=== PATIENT | male | born 1935 | race Caucasian/White ===

== ENCOUNTER 2019-07-22 05:11 | Day surgery (SDC) | payer MEDICARE, SELFPAY ==
[2019-07-21 16:04] VITALS: BMI 29.7
[2019-07-22] VITALS (8 sets, daily range): BP systolic 132–161; BP diastolic 66–87; PULSE 38–52; RESP 14–16; TEMP 36.5–36.9; O2SAT 94–98
[2019-07-22 09:39] LABS: Basophils Absolute Auto 0.1 K/mm3 (0.0-0.1); Basophils Percent Auto 1.3 % (0.2-1.2); Eosinophils Absolute Auto 0.3 K/mm3 (0-0.3); Eosinophils Percent Auto 5.6 % (0-4.4); Hematocrit 38.8 % (42.0-52.0); Hemoglobin 12.9 g/dL (14.0-18.0); Immature Granulocyte Absolute 0.01 K/mm3 (0.00-0.031); Immature Granulocyte Percent A 0.2 % (0-0.5); Lymphocytes Absolute Auto 1.79 K/mm3 (0.9-3.2); Lymphocytes Percent Auto 40.2 % (18.3-44.2); Mean Corpuscular HGB Conc 33.2 g/dl (32-36); Mean Corpuscular Hemoglobin 33.2 pg (26-34); Mean Platelet Volume 10.2 fl (7.4-10.4); Monocytes Absolute Auto 0.5 K/mm3 (0.1-0.6); Monocytes Percent Auto 10.1 % (2.6-8.5); Neutrophils Absolute Auto 1.9 K/mm3 (1.3-6.7); Neutrophils Percent Auto 42.6 % (45.5-73.1); Platelet Count Result 159 k/mm3 (150-375); Red Blood Count 3.88 M/mm3 (4.6-6.20); Red Cell Distribution Width 13.3 % (11.5-14.5); White Blood Count 4.5 K/mm3 (4.5-10.0)
[2019-07-22 09:55] LABS: Blood Urea Nitrogen 27 mg/dL (9-20); Calcium 9.3 mg/dL (8.4-10.2); Carbon Dioxide 23 mmol/L (22-30); Chloride 111 mmol/L (98-107); Estimated CRCL calculation 58 ml/min; Estimated Glomerular Filt Rate > 60; Glucose 103 mg/dL (75-110); Sodium 140 mmol/L (137-145)
[2019-07-22 10:21] LABS: Potassium 4.2 mmol/L (3.4-5.0)
--- NOTE | 2019-07-22 10:30 | WPDMODSED ---
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 Recent acceleration in chronic anginal symptoms Present Complaint: Exertional chest pain Procedure to be performed/Plan: Left heart catheterization Allergies Allergy/AdvReac Type Severity Reaction Status Date / Time clopidogrel Allergy Unknown Verified 08/10/18 11:27 CLOPIDOGREL BISULFATE Allergy Intermediate RED RASH Uncoded 10/17/16 09:35 Home Medications Medication Instructions Recorded Confirmed Type rosuvastatin 20 mg tablet 10 mg PO DAILY #45 tablet 05/20/19 07/22/19 Rx aspirin 81 mg PO DAILY 07/21/19 07/22/19 History glucosamine HCl 1,500 mg PO BID 07/21/19 07/22/19 History multivitamin 1 tablet PO DAILY 07/21/19 07/22/19 History valsartan-hydrochlorothiazide 1 tablet PO DAILY 07/21/19 07/22/19 History [Diovan HCT] Current Medications: Active Medications Sodium Chloride (Normal Saline Iv) 500 mls @ 100 mls/hr IV CONT .Q5H [facility] Sedation/Anesthesia: No previous sedation/anesthesia problems (including family history). [facility] Family History Family History (Updated 08/10/18 @ 11:32 by DOCTOR UNKNOWN) Father Family history of cardiovascular disease, Onset Age: 79 Family history of malignant neoplasm, Onset Age: 79 Family history of heart disease in male family member before age 55 Other Family history of arthritis Hypertension Social History Social History Smoking status: Former smoker Smoking end date: 05/18/76 Alcohol intake: current Gender identity (if verbalized by the patient): Male Mod Sed Physical Exam Physical Exam Pre Procedural Exam: Normal: Appearance, Neck, Throat, Airway, Lungs, Heart Size, Heart Rate, Heart Rhythm, Neuro Exam and Extremities Hours since solid foods: 12 Hours since liquid intake: 12 Internal Medicine - PN: Obj Da Vital Signs Vital Signs: Vital Signs - 24 hr 07/22/19 09:29 Temperature 36.9 C Pulse Rate 52 L Respiratory Rate 14 Blood Pressure 161/80 H Pulse Oximetry 98 Meds/Results Medications: Active Medications Generic Name Dose Route Start Last Admin Trade Name Freq PRN Reason Stop Dose Admin Sodium Chloride 500 mls @ 100 mls/hr 07/22/19 06:30 Normal Saline Iv IV CONT .Q5H [facility] Labs CBC & Chem 7: 07/22/19 09:12 07/22/19 09:12 Labs: Laboratory Results - last 24 hr 07/22/19 07/22/19 09:12 09:12 WBC 4.5 RBC 3.88 L Hgb 12.9 L Hct 38.8 L MCV 100.0 MCH 33.2 MCHC 33.2 RDW 13.3 Plt Count 159 MPV 10.2 Immature Gran % (Auto) 0.2 Neut % (Auto) 42.6 L Lymph % (Auto) 40.2 Ralls % (Auto) 10.1 H Eos % (Auto) 5.6 H Baso % (Auto) 1.3 H Lymph # (Auto) 1.79 Ralls # (Auto) 0.5 Eos # (Auto) 0.3 Baso # (Auto) 0.1 Abs Immat Gran (auto) 0.01 Absolute Neuts (auto) 1.9 Absolute Nucleated RBC 0.0 Nucleated RBC % 0.0 Sodium 140 Potassium 4.2 Chloride 111 H Carbon Dioxide 23 BUN 27 H Creatinine 1.00 Estim Creat Clear Calc 58 Estimated GFR > 60 Glucose 103 Calcium 9.3 ASA Classification/Sedation ASA Classification/Sedation ASA Class: II Emergent: No Risks: Risks, benefits and alternatives explained and patient/family accepted plan for sedation. Patient re-evaluated immediately prior to sedation.
--- NOTE | 2019-07-22 11:16 | WPDCARDPROC ---
Cardiac Cath Procedure Note Date of procedure:: 07/22/19 Performing physician:: Shane Paris MD Indication:: 83-year-old gentleman with coronary disease known chronic total occlusion of the LAD which is been doing well with medical treatment. Recent acceleration in anginal-type symptoms prompting recommendation for follow-up angiography Brief clinical history:: as above Procedure Procedure performed:: left heart catheterization with left ventriculography, coronary angiography Angio-Seal to right femoral artery Sedation/Medication given:: fentanyl 50 mg Versed 2 mg case start time 10 50 a case end time 11:15 a.m. sedation provided by Toño Beckham RN, trained observer Access site:: right femoral artery Estimated blood loss:: 15-20 cc Procedure note:: patient was brought to the cardiac catheterization lab in te postabsorptive state the right femoral triangle was prepared in the usual fashion. Anesthesia was provided with 1% lidocaine infiltrated locally. Using the modified Seldinger technique the right femoral artery was punctured and a 5 American vascular sheath was placed. Left heart catheterization was carried out. Initially I used a 5 American angled pigtail catheter to document left-sided hemodynamics and to injected LV g in the are AO projection. Following this a standard 5 American JR4 catheter was used to engage inject the right coronary artery. A standard 5 American FL4 catheter was used to engage inject the left coronary artery. The left coronary gait was slightly challenging because of dilated aortic root however the angiograms were of good quality. Following this an angiogram was performed of the femoral artery through the sheath and a 6 American Angio-Seal device was deployed at the arterial puncture site with a good hemostatic result. He was taken to the holding area for post cath recovery there were no signs of any procedure complications and no evidence of a groin hematoma upon leaving the laborer wrecking and salvaging. Findings:: Hemodynamics: Central aortic pressure 144/60 left ventricle 144 over to end-diastolic pressure 10 there is no transvalvular gradient across the aortic valve upon pullback. 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 Circumflex is a large caliber artery giving rise to the marginal branches the distal posterior branch provides a well-developed collateral to the distal part of the LAD. The circumflex itself is free of significant disease Right coronary artery is large caliber dominant to the posterior circulation the right coronary is smooth and free of disease there are some collaterals from the distal right coronary to the septal branches of the LAD as well. 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 No significant circumflex or right coronary lesions mild anterior hypokinesia with overall good ejection fraction successful Angio-Seal deployment at the site of the arterial puncture Shane Paris MD [facility]
--- NOTE | 2019-07-22 11:30 | SUR.PHASEII ---
BEGIN PHASE II RECOVERY. RETURNS VIA STRETCHER TO [facility] 4 S/P [facility] W/ DR. MEDINA. AWAKE AND ALERT UPON RETURN. DENIES CP OR SOB. ANGIOSEAL CLOSURE DEVICE TO PUNCTURE RFA. SITE SOFT, NONTENDER. NO BLEEDING OR HEMATOMA NOTED. SITE COVERED W/ C/D/I GUAZE AND TEGADERM DRESSING. R. PEDAL PULSE STRONG, EASILY PALP, SENSATION AND MOVEMENT WNL. VSS. REVIEWED BEDREST RESTRICTIONS W/ PT AND . BOTH VOICED UNDERSTANDING. BEDREST X 2 HOURS POST ANGIOSEAL. WILL CONTINUE TO MONITOR.
--- NOTE | 2019-07-22 13:56 | SUR.PHASEII ---
1315 OOB TO BATHROOM THEN CHAIR. ALL VITALS STABLE. RIGHT GROIN DRESSING CLEAN AND DRY.
--- NOTE | 2019-07-22 14:17 | SUR.PHASEII ---
1415 IV DC'D. DETAILED WRITTEN AND VERBAL DISCHARGE INSTRUCTIONS REVIEWED W PATIENT AND AT BEDSIDE. ALL QUESTIONS AND CONCERNS ADDRESSED. PT TAKEN OUT IN WHEELCHAIR.
== END 2019-07-22 14:15 | disposition home or self-care (01) ==
PROVIDERS: PCP Internal Medicine; Visit Provider Specialist
PROC: 4A023N7 Measurement of Cardiac Sampling and Pressure, Left Heart, Percutaneous Approach (ICD-10-PCS; CPT 93452; principal; 2019-07-22 10:00)
DX: I25.10 Atherosclerotic heart disease of native coronary artery without angina pectoris (principal); R07.89 Other chest pain; R06.09 Other forms of dyspnea; Z79.82 Long term (current) use of aspirin; Z87.891 Personal history of nicotine dependence
CPT/HCPCS: 36415; 80048; 85025; 93458; C1887; C1894; G0269; J1644; J2250; J3010; J7040

== ENCOUNTER 2019-12-09 11:53 | Emergency (ER) | payer MEDICARE, SELFPAY ==
--- NOTE | ~2019-12-09 | CT_ITS ---
EXAMINATION: CT UE RT w con EXAM DATE: 12/09/2019 16:01 INDICATION: Puncture wound 4th finger. Evaluate for possibility of abscess. TECHNIQUE: Spiral CT right hand was performed following intravenous injection of 100 mL Omnipaque 350 . Axial, coronal and sagittal images were reviewed. The dose-length product (DLP) for this examinat ion was 481.85 mGy-cm. The exposure was tailored according to patient size (auto mA exposure control ), and iterative reconstruction (ASIR) was used as additional dose reduction technique. There is no prior study for comparison. 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 There are carpal subc hondral cysts from osteoarthritis. Mildly widened scapholunate joint space could indicate partial dis sociation, would likely be chronic finding. No radiopaque foreign bodies identified. No acute erosive change, no evidence of acute osteomyelitis . The veins and arteries are enhancing as expected, no evidence of distal right upper extremity deep venous thrombosis. There is inflammation, fat stranding along the wrist and digits, most pronounced o josué the right 3rd proximal interphalangeal joint. No focal abscess or subcutaneous gas. There are no acute fractures identified. IMPRESSION: 1. Finger, hand edema without focal abscess or acute osseous erosive change. 2. 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 Reviewed, dictated and finalized at location A.
--- NOTE | ~2019-12-09 | XR_ITS ---
EXAMINATION: XR finger 3rd RT min 2V INDICATION: Right third finger pain and swelling TECHNIQUE: Three views of the right third finger are obtained. COMPARISON: 07/13/2016 FINDINGS: There is diffuse swelling of the right third finger. No fracture is identified. There is no radiopaque foreign body. There is advanced osteoarthritis of the distal interphalangeal joint. IMPRESSION: 1. Diffuse soft tissue swelling of the right third finger without fracture or radiopaque foreign body identified. Reviewed, dictated and finalized at location A. IMPRESSION: 1. Diffuse soft tissue swelling of the right third finger without fracture or r adiopaque foreign body identified.
[2019-12-09 12:20] VITALS: BP 132/85; PULSE 57; RESP 14; TEMP 36.2; O2SAT 98
--- NOTE | 2019-12-09 12:28 | ED.UPPEXIN ---
HPI - Extremity Injury (Upper) General Chief Complaint: Wound/Laceration Stated Complaint: R hand 2nd finger swelling Source: patient Mode of arrival: ambulatory Limitations: no limitations History of Present Illness HPI narrative: 84-year-old with hypertension and hyperlipidemia had a puncture of his right 3rd finger 2 days ago from a mole trap that sprung, forcing a sharp metal spike into his 3rd finger. It did not get lodged into the bone. He devleoped swelling later that evening with more swollen this morning extending to the dorsum of his hand. He is having some aching in his right lateral arm today that he did not have before. Holding his hand up above his shoulder or applying an ice pack reduces the pain. Last tetanus shot unknown. Related Data Home Medications Medication Instructions Recorded Confirmed aspirin 81 mg PO DAILY 07/21/19 12/09/19 glucosamine HCl 1,500 mg PO BID 07/21/19 12/09/19 multivitamin 1 tablet PO DAILY 07/21/19 12/09/19 valsartan-hydrochlorothiazide 1 tablet PO DAILY 07/21/19 12/09/19 [Diovan HCT] Allergies Allergy/AdvReac Type Severity Reaction Status Date / Time clopidogrel Allergy Unknown Verified 08/10/18 11:27 CLOPIDOGREL BISULFATE Allergy Intermediate RED RASH Uncoded 10/17/16 09:35 Review of Systems Constitutional: Constitutional: Denies chills and Denies fever(s) Musculoskeletal: Musculoskeletal: Reports no additional musculoskeletal complaints and Reports myalgias Integumentary/Breasts: Skin/Breast: Reports rash PMFSH Past Medical History Medical History (Updated 12/10/19 @ 00:00 by Ian Maddox) Essential hypertension Kidney stones Mixed hyperlipidemia Surgical History Surgical History (Updated 12/09/19 @ 14:17 by Judith Haddad [facility]) History of appendectomy Family History Family History (Updated 12/09/19 @ 14:17 by Judith Haddad CMA) Father Family history of cardiovascular disease, Onset Age: 79 Family history of malignant neoplasm, Onset Age: 79 Family history of heart disease in male family member before age 55 Heart attack Other Family history of arthritis Hypertension Social History Social History Smoking status: Former smoker Smoking end date: 05/18/76 Alcohol intake: current Gender identity (if verbalized by the patient): Male Exam Const: General: no acute distress Orientation/consciousness: patient oriented x3 Extrem: Other: Right 4th finger, PIP joint has a 2 mm puncture eschar over the radial aspect of the joint. The middle phalanx is swollen. The PIP, MCP and prox. phalanx is swollen, red and tender.There is a 4 mm red and swollen area over the 4th dorsal distal metacarpal portion of the hand. Passive and active flexion of PIP and MCO over 30 degrees is painful. There are O.A. degenerative changes of his finger joints. There is no redness or tenderness of the wrist, forearm or arm on the right side. Course Reevaluation(s) Reevaluation #1: Decreased pain after [place] #1 and IV Ancef. Date: 12/09/19 Time: 16:55 Consultations Consultation #1: Spoke with Dr. Moon. Follow up in 3 -4 days (after the weekend) Before hearing from Dr. Moon, I paged Dr. Tran at [facility] hand clinic. I spoke with him. He will see pt. in 3 - 5 days if pt. wants to come to [place]. Pt. wants to see Dr. Moon. Date: 12/09/19 Time: 03:00 Vital Signs Vital signs: Vital Signs Temperature 36.2 C L 12/09/19 12:20 Pulse Rate 57 L 12/09/19 12:20 Respiratory Rate 14 12/09/19 12:20 Blood Pressure 132/85 12/09/19 12:20 Pulse Oximetry 98 12/09/19 12:20 Temperature 36.2 C L 12/09/19 12:20 Pulse Rate 59 L 12/09/19 17:03 Respiratory Rate 13 12/09/19 17:03 Blood Pressure 143/80 H 12/09/19 17:03 Pulse Oximetry 99 12/09/19 17:03 MDM - Extremity Injury (Upper) MDM Narrative Medical decision making narrative: No evidence of abscess on CT scan. Pt. has cellulitis. Instructions on care, when
[2019-12-09 12:53] LABS: Basophils Absolute Auto 0.05 K/mm3 (0.00-0.10); Basophils Percent Auto 0.7 % (0.0-1.0); Eosinophils Absolute Auto 0.18 K/mm3 (0.02-0.50); Eosinophils Percent Auto 2.6 % (1.0-6.0); Hematocrit 36.4 % (37.0-46.0); Hemoglobin 12.4 g/dL (12.4-15.3); Immature Granulocyte Absolute 0.02 K/mm3 (0.00-0.00); Immature Granulocyte Percent A 0.3 % (0.0-0.0); Lymphocytes Absolute Auto 1.44 K/mm3 (1.10-4.50); Lymphocytes Percent Auto 20.8 % (18.0-42.0); Mean Corpuscular HGB Conc 34.1 g/dL (32.0-36.0); Mean Corpuscular Hemoglobin 34.4 pg (27.0-31.0); Mean Corpuscular Volume 101.1 fL (78.0-102.0); Mean Platelet Volume 10.3 fl (8.7-11.0); Monocytes Absolute Auto 0.69 K/mm3 (0.10-0.90); Neutrophils Absolute Auto 4.5 K/mm3 (1.7-7.2); Neutrophils Percent Auto 65.6 % (50.0-70.0); Platelet Count Result 141 K/mm3 (150-420); Red Cell Distribution Width 12.8 % (11.6-14.4); White Blood Count 6.9 K/mm3 (4.8-10.8)
[2019-12-09 13:18] LABS: Alanine Aminotransferase 38 U/L (16-63); Albumin Level 3.3 g/dL (3.4-5.0); Alkaline Phosphatase 94 U/L (46-116); Anion Gap 13.5 mmol/L (7-16); Aspartate Amino Transferase 26 U/L (15-37); Bilirubin,Total 0.8 mg/dL (0.00-1.00); Blood Urea Nitrogen 31 mg/dL (7-18); Calcium 8.7 mg/dL (8.5-10.1); Carbon Dioxide 24 mmol/L (21-32); Chloride 105 mmol/L (98-108); Estimated CRCL calculation 32 ml/min; Estimated Glomerular Filt Rate 48; Glucose 113 mg/dL (70-99); Osmolality Calculated 293 mOsm/kg (285-295); Potassium 4.5 mmol/L (3.5-5.1); Sodium 138 mmol/L (136-145); Total Protein 6.2 g/dL (6.4-8.2)
--- NOTE | 2019-12-09 14:12 | PC.NURSE ---
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 NILS STATES SHE DOES NOT KNOW IF THE HAND SUGEON, DR. RAMOS, TAKES ON-CALL. NILS EXPLAINS THAT SHE WILL INVESTIGATE AND CALL THE ER BACK RIGHT AWAY.
--- NOTE | 2019-12-09 14:45 | PC.NURSE ---
[facility] CONTACTED FOR HAND SURGEON CONSULT. AWAITING CALL BACK.
[2019-12-09] MEDS: TETANUS,DIPHTHERIA,AC PERTUSSIS ADULT 0.5 ML (ADACEL) IM (16:04)
[2019-12-09] MEDS: ceFAZolin SODIUM 1 GM VIAL IV PUSH (16:05)
[2019-12-09 17:03] VITALS: BP 143/80; PULSE 59; RESP 13; O2SAT 99
--- NOTE | 2019-12-09 17:15 | PC.NURSE ---
IV STOP TIME 0953
== END 2019-12-09 17:10 | disposition home or self-care (01) ==
PROVIDERS: Emergency Provider Family Medicine; PCP Internal Medicine
DX: L03.011 Cellulitis of right finger (principal)
CPT/HCPCS: 36415; 69210; 73140; 73201; 80053; 85025; 90471; 90715; 96374; 99281; 99284; A9270; J0690; Q9965

== ENCOUNTER 2019-12-12 10:45 | Outpatient (CLI) | payer MEDICARE, SELFPAY ==
--- NOTE | ~2019-12-12 | US_ITS ---
EXAMINATION: US scrotum doppler DATE: 12/12/2019 11:49 INDICATION: Other specified disorders of the male genital organs, left epididymal mass TECHNIQUE: Testicular sonogram utilizing grayscale and Doppler COMPARISON: None. FINDINGS: The right testis measures 4.4 x 2.8 x 1.9 cm. The left testis measures 4.5 x 2.8 x 1.6 cm. There is normal vascular flow to both testes. The right epididymis is normal with normal vascular klever w. The left epididymis is normal with normal vascular flow. There is a left-sided varicocele. IMPRESSION: 1. Left-sided varicocele likely accounting for the clinical symptoms. Reviewed, dictated and finalized at location B.
== END 2019-12-12 10:46 | disposition home or self-care (01) ==
PROVIDERS: PCP Internal Medicine; Visit Provider Surgery
DX: N50.89 Other specified disorders of the male genital organs (principal); I86.1 Scrotal varices
CPT/HCPCS: 76870; 93976

== ENCOUNTER 2019-12-12 15:20 | Day surgery (SDC) | payer MEDICARE, SELFPAY ==
[2019-12-12 15:38] VITALS: BP 174/83; PULSE 61; RESP 12; TEMP 36.3; O2SAT 100
--- NOTE | 2019-12-12 16:34 | P.HP_ITS ---
H&P: HPI History of Present Illness Chief complaint: right middle finger infection Narrative: Jeronimo Guallpa is a 84 year old male who's right middle finger was impaled by a spine of a mole trap that he was working on using a vice on 12/07/19. He sought help 2 days later and was begun on Keflex. The puncture wound is on the radial dorsal aspect just distal to the PIP joint. The finger has remained swollen and red and painful. The small wound did not permit irrigation. Review of Systems Review of Systems: All systems reviewed & are unremarkable except as noted in HPI and below Constitutional: Constitutional: Reports no additional constitutional complaints PMFSH Surgical History Surgical History History of appendectomy Social History Social History Smoking status: Former smoker Smoking end date: 05/18/76 Alcohol intake: current Gender identity (if verbalized by the patient): Male Meds Home Medications and Allergies Home Medications Medication Instructions Recorded Confirmed Type aspirin 81 mg PO DAILY 07/21/19 12/12/19 History glucosamine HCl 1,500 mg PO BID 07/21/19 12/12/19 History multivitamin 1 tablet PO DAILY 07/21/19 12/12/19 History valsartan-hydrochlorothiazide 1 tablet PO DAILY 07/21/19 12/12/19 History [Diovan HCT] rosuvastatin 20 mg tablet 10 mg PO DAILY #45 tablet 09/30/19 12/12/19 Rx cephalexin 500 mg PO Q6H #28 cap 12/09/19 12/12/19 Rx hydrocodone-acetaminophen [[place]] 1 tablet PO Q6H PRN #10 tablet 12/09/19 12/12/19 Rx Allergies Allergy/AdvReac Type Severity Reaction Status Date / Time CLOPIDOGREL BISULFATE Allergy Intermediate RED RASH Uncoded 12/12/19 15:55 Vital Signs Vital Signs - 24 hr 12/12/19 15:38 Temperature 36.3 C L Pulse Rate 61 Respiratory Rate 12 Blood Pressure 174/83 H Pulse Oximetry 100 Exam Narrative: Exam Narrative: Right middle finger as described. Assessment and Plan Additional Plan Cellulitis unresponsive to oral cephalexin due to penetrating, dirty yard equipment. Inacise and drain under local.
[2019-12-12 16:55] VITALS: BP 147/74; PULSE 50; RESP 16; TEMP 36.3; O2SAT 97
[2019-12-12 17:05] VITALS: BP 145/71; PULSE 48; RESP 16; O2SAT 98
[2019-12-12 17:15] VITALS: BP 151/75; PULSE 49; RESP 16; O2SAT 98
[2019-12-12 17:28] VITALS: BP 153/73; PULSE 49; RESP 16; O2SAT 99
--- NOTE | 2019-12-12 17:31 | PM.OP ---
Procedure Note - Brief Procedure Note - Brief Date of procedure: 12/12/19 Pre-op diagnosis: right middle finger infection Post-op diagnosis: other (Septic arthritis right middle PIP joint.) Procedure performed: I&D right middle septic PIP joint. Surgeon: Herson Moon MD Estimated blood loss (mL): 5 Tourniquet time (min): 18 Drains: Yes Packing: No Pathology: none sent Complications: No immediate complications Condition: stable Disposition: same day
[2019-12-12 17:35] VITALS: BP 157/75; PULSE 50; RESP 16; O2SAT 100
--- NOTE | 2019-12-12 17:43 | PM.PROC ---
Procedure Note - Detailed Date of procedure: 12/12/19 Pre-op diagnosis: right middle finger infection Surgeon: Herson Moon MD
--- NOTE | 2019-12-12 17:44 | PM.PROC ---
Procedure Note - Detailed Date of procedure: 12/12/19 Pre-op diagnosis: right middle finger infection Cellulitis of right middle finger. Post-op diagnosis: other (Septic right middle finger PIP joint ) Procedure performed: I&D right middle finger with PIP joint arthrotomy. Description of procedure: The patient is infected finger was marked in the holding area. He was taken to the operating room and placed supine on the operating table. A time-out was held and confirmed. The digit was already numb from a Marcaine infiltration given in the office approximately an hour and a half prior to the surgery. The hand was prepped and draped in usual fashion. The quarter-inch Cristiana drain tourniquet was applied and held with a clamp. A dorsal lateral incision was made passing through the puncture site. No pus was really identified. The tissue around the radial proximal interphalangeal joint was somewhat boggy. We dissected that right to the joint capsule and opened the joint. Cloudy fluid was noted inside the joint. This was copiously irrigated with about 300 milliliter of bacitracin saline solution. A split portion of the Cristiana drain approximately 1 in in length was passed across the joint just palmar to the central slip. That was sutured to the wound edge on 1 side. The incision was not closed. Pressure was held on the finger for several minutes waiting for coagulation to take effect. A few small sites were cauterized. The Adaptic and gauze dressing were applied. He is being discharged home on Augmentin for 7 days and Tramadol Number 14 . He had complained that the hydrocodone may have been causing him to feel things crawling on the skin of his Face and neck. He has written instructions in wound care and follow-up Surgeon: Herson Moon MD
== END 2019-12-12 18:18 | disposition home or self-care (01) ==
PROVIDERS: PCP Internal Medicine; Visit Provider Plastic Surgery
PROC: (CPT 26080; principal; 2019-12-12 17:00)
DX: L03.011 Cellulitis of right finger (principal); M00.841 Arthritis due to other bacteria, right hand; Z87.891 Personal history of nicotine dependence
CPT/HCPCS: 26080; 76870; 93976; A9270

== ENCOUNTER 2021-01-01 13:39 | Outpatient (CLI) | payer MEDICARE, SELFPAY ==
--- NOTE | ~2021-01-01 | CT_ITS ---
EXAMINATION: CT abdomen wo con DATE: 01/01/2021 13:57 INDICATION: Left upper quadrant abdominal pain TECHNIQUE: Computed tomography (CT) of the abdomen was performed without intravenous contrast. Automa konrad exposure control and iterative reconstruction technique were employed. Exam dose: 480.51 mGy-cm total exam DLP. COMPARISON: 05/08/2014 CT abdomen pelvis FINDINGS: There is mild atelectasis or scarring at the lung bases. No consolidation or mass lesion is identified in the lower lung zones included in this examination. Heart size is within normal range. No pericardial or pleural effusion. No hepatic space-occupying mass lesion. There are at least 4 stones in the dependent aspect of the ga llbladder, in the 7 mm size range. No gallbladder wall thickening or pericholecystic fluid or fat str anding is detected. No bile duct or pancreatic duct dilatation. There is diffuse pancreatic atrophy. There is a calcifica tion at the tail the pancreas suggesting mild chronic pancreatitis. Normal splenic size. Normal morphology of the adrenal glands. Pinpoint upper pole nonobstructing renal calculus. 4.6 mm nonobstructing upper pole right renal calcu breonna. 3.8 x 8.4 mm nonobstructing mid to lower right renal calculus. No left urinary tract calculus. No ure teral calculus or hydroureteronephrosis is noted on either side. There are multiple left renal cyst, primarily parapelvic in position. There is atherosclerotic calcification of the abdominal aorta but no aneurysm. No intraperitoneal or retroperitoneal mass lesion or adenopathy or ascites is detected. Occasional diverticula of the colon. No CT evidence of diverticulitis. No bowel obstruction, bowel wa ll thickening, pneumatosis or intraperitoneal free air is evident. Small fat-containing umbilical hernia. Severe degenerative changes of the lower thoracic and lumbar spine IMPRESSION: Cholelithiasis Diverticulosis of the colon Nonobstructive right nephrolithiasis Left predominantly parapelvic renal cysts Reviewed, dictated and finalized at Location A. Reviewed, dictated and finalized at location A.
== END 2021-01-01 13:40 | disposition home or self-care (01) ==
PROVIDERS: PCP Internal Medicine; Visit Provider Internal Medicine
DX: R10.12 Left upper quadrant pain (principal); K80.20 Calculus of gallbladder without cholecystitis without obstruction; K57.90 Diverticulosis of intestine, part unspecified, without perforation or abscess without bleeding; N20.0 Calculus of kidney; N28.1 Cyst of kidney, acquired
CPT/HCPCS: 74150

== ENCOUNTER 2022-01-04 09:32 | Emergency (ER) | payer MEDICARE, SELFPAY ==
--- NOTE | ~2022-01-04 | XR_ITS ---
EXAMINATION: XR foot LT min 3V DATE: 01/04/2022 10:16 INDICATION: Left foot pain and swelling. Injury. TECHNIQUE: 3 views of left foot were obtained. COMPARISON: None. FINDINGS: Bone alignment is normal. No fracture. There is mild flattening of the heads of the second and third metatarsals, consistent with osteonecrosis (Freiberg infraction). There is moderate osteoar thritis of first metatarsophalangeal joint and mild osteoarthritis of second and third metatarsophala ngeal joints and some of the midfoot and interphalangeal joints. There are enthesophytes at the poste rior and plantar aspects of calcaneal tuberosity. IMPRESSION: 1. No fracture. 2. Polyarticular osteoarthritis. Reviewed, dictated and finalized at location A.
[2022-01-04 09:35] VITALS: BP 142/75; PULSE 61; RESP 18; TEMP 36.7; O2SAT 98
--- NOTE | 2022-01-04 09:47 | ED.LOWEXIN ---
HPI - Extremity Injury (Lower) General Chief Complaint: Extremity Injury, Lower Stated Complaint: left foot pain Time Seen by Provider: 01/04/22 09:42 Source: patient Mode of arrival: ambulatory Limitations: no limitations History of Present Illness HPI Narrative: Patient is an 86-year-old male who presents the ED with report of pain and swelling to left foot. Patient reports he was working with his tractor on when the bucket, approximately 350 pounds, fell down onto his distal left foot. He has since had pain, swelling, bruising to his left foot, with pain worst over the ball of his foot. He has been able to ambulate and has been using a postop shoe at home. He also sustained a laceration to the lateral edge of his left second toe, which he has been bandaging at home. No active bleeding at this time. No fevers. No numbness, tingling. He is concerned he may have fractured a bone, which prompted his presentation today. Tetanus status unknown. Related Data Home Medications Medication Instructions Recorded Confirmed aspirin 81 mg chewable tablet 81 mg PO DAILY 07/21/19 07/02/21 glucosamine HCl 1,500 mg tablet 1,500 mg PO BID 07/21/19 07/02/21 multivitamin 1 tablet PO DAILY 07/21/19 12/18/20 Allergies Allergy/AdvReac Type Severity Reaction Status Date / Time CLOPIDOGREL BISULFATE Allergy Intermediate RED RASH Uncoded 07/02/21 10:14 Review of Systems Review of Systems: CONSTITUTIONAL: Denies fever. SKIN: Reports swelling, ecchymosis to L foot. Reports laceration to L lateral 2nd toe. MUSCULOSKELETAL: Reports pain to L foot. NEUROLOGIC: Denies numbness, tingling, or weakness. All systems reviewed & are unremarkable except as noted in HPI and below PMFSH Past Medical History Medical History COVID-19 Essential hypertension Kidney stones Mixed hyperlipidemia Surgical History Surgical History History of appendectomy Family History Family History Father Family history of cardiovascular disease, Onset Age: 79 Family history of malignant neoplasm, Onset Age: 79 Family history of heart disease in male family member before age 55 Heart attack Other Family history of arthritis Hypertension Social History Social History Smoking status: Former smoker Smoking end date: 05/18/76 Alcohol intake: current Alcohol use details: social Substance use: never Substance use type: does not use Gender identity (if verbalized by the patient): Male Sexual Orientation (if Verbalized by the Patient): Straight or Heterosexual Exam Narrative: GENERAL: Well appearing, well-nourished, non-toxic, in no acute distress. HEAD: Normocephalic, atraumatic. NECK: Supple. No adenopathy, no masses. RESPIRATORY: Airway patent, respirations nonlabored. CARDIOVASCULAR: Regular rate and rhythm without murmurs, rubs, or gallops. Pedal pulses 2+ and equal bilaterally. MUSCULOSKELETAL: Moves all extremities. Strength/ROM intact. Full range of motion of left ankle and toes. Diffuse swelling, red/purple ecchymosis to mid-distal forefoot. No significant TTP over ball of foot, metatarsal heads, calcaneus, or distal phalanges. Approx 2cm linear laceration to lateral edge of 2nd toe. Bleeding controlled. No purulent drainage or surrounding erythema. SKIN: Warm, dry, normal color. No rashes. NEURO: A&O X3. Speech clear. Cranial nerves II-XII grossly intact. Steady gait. No ataxic movements. PSYCHIATRIC: Appropriate mood and affect. Normal interaction. Course Vital Signs Vital signs: Vital Signs Temperature 98.0 F 01/04/22 09:35 Pulse Rate 61 01/04/22 09:35 Respiratory Rate 18 01/04/22 09:35 Blood Pressure 142/75 H 01/04/22 09:35 Pulse Oximetry 98 01/04/22 09:35 Oxygen Del[employer]
[2022-01-04] MEDS: TETANUS,DIPHTHERIA,AC PERTUSSIS ADULT (0.5 ML) BOOSTRIX IM (11:14)
[2022-01-04 11:51] VITALS: BP 125/74; PULSE 51; RESP 18; O2SAT 100
== END 2022-01-04 11:53 | disposition home or self-care (01) ==
PROVIDERS: Emergency Provider Emergency Medicine; PCP Internal Medicine
DX: S91.115A Laceration without foreign body of left lesser toe(s) without damage to nail, initial encounter (principal); S90.32XA Contusion of left foot, initial encounter; Z23 Encounter for immunization; I10 Essential (primary) hypertension; Z86.16 Personal history of COVID-19; Z87.442 Personal history of urinary calculi; Z79.82 Long term (current) use of aspirin; Z87.891 Personal history of nicotine dependence; M19.072 Primary osteoarthritis, left ankle and foot; W30.89XA Contact with other specified agricultural machinery, initial encounter
CPT/HCPCS: 73630; 90471; 90715; 99283

== ENCOUNTER 2022-02-27 10:00 | Outpatient (CLI) | payer MEDICARE, SELFPAY ==
--- NOTE | ~2022-02-27 | XR_ITS ---
EXAMINATION: [id number]_[id number]_CR DATE: 02/27/2022 10:28 INDICATION: Crush injury to the left foot with pain at the great toe TECHNIQUE: 1. Standing dorsal plantar, two oblique and lateral views of the left foot were obtained. COMPARISON: None. FINDINGS: There is up to 1 cm plantar/medial subluxation of the first proximal phalanx relative to the head of the first metatarsal. The first metatarsal sesamoids appear similarly medially subluxed along with th e proximal phalanx. On one of the oblique images there is a 1 mm lucent gap along the distal articula r cortex at the head of the first metatarsal suspicious for a minimally displaced fracture. Normal al ignment throughout the remainder of the left foot and ankle. No other fractures identified. Mild poly articular osteoarthritis involving several of the tarsal metatarsal, metatarsophalangeal and interpha langeal joints. Small Achilles and plantar calcaneal spurs. Soft tissue swelling about the first meta tarsophalangeal joint. IMPRESSION: 1. 1 cm plantar/medial subluxation at the left first metatarsophalangeal joint with likely associated nondisplaced intra-articular fracture at the head of the first metatarsal. Reviewed, dictated and finalized at location B.
== END 2022-02-27 10:01 | disposition home or self-care (01) ==
LOC: CHSIMG 10:03
PROVIDERS: PCP Internal Medicine; Visit Provider Student in an Organized Health Care Education/Training Program
DX: S97.82XA Crushing injury of left foot, initial encounter (principal)
CPT/HCPCS: 73630

== ENCOUNTER 2022-04-07 08:45 | Observation (INO) | payer MEDICARE, SELFPAY ==
[2022-04-07] VITALS (31 sets, daily range): BP systolic 137–154; BP diastolic 65–78; PULSE 54–77; RESP 16–25; TEMP 36.3–36.8; O2SAT 94–100; BMI 29.8
--- NOTE | ~2022-04-07 | XR_ITS ---
EXAMINATION: XR abdomen/kub 1V DATE: 04/07/2022 12:34 INDICATION: Right ureteral stone. TECHNIQUE: A supine view of the abdomen on 2 radiographs was obtained. COMPARISON: CT abdomen and pelvis 04/07/2022 FINDINGS: There are no dilated loops of bowel. There is contrast in the renal collecting system. Ther e is mild right hydronephrosis. IMPRESSION: 1. Mild right hydronephrosis. Reviewed, dictated and finalized at location A. ACT LENS FLASHING PUNCHER
--- NOTE | ~2022-04-07 | XR_ITS ---
Right ureteral stone extraction TECHNIQUE: Fluoroscopy used during right ureteral stone extraction performed by [Camilo knutson MD] on 04/08/2022. Fluoroscopy time is 20 seconds with 2 fluoroscopic images captured. ] FINDINGS: Correlate with procedure note. IMPRESSION: Fluoroscopy used during right ureteral stone extraction. Reviewed, dictated and finalized at location B. TS DIRECTOR
--- NOTE | ~2022-04-07 | US_ITS ---
EXAMINATION: US arterial duplex LE DATE: 04/07/2022 20:22 INDICATION: Peripheral arterial disease. TECHNIQUE: Multiple grayscale and Doppler ultrasound images of the lower extremities were obtained. COMPARISON: CT abdomen and pelvis 04/07/2022 FINDINGS: In the right lower limb, peak systolic velocity is 156 cm/s in common femoral artery, 75 cm /s in deep femoral artery, 106 cm/s in proximal superficial femoral artery, 145 cm/s in mid superfici al femoral artery, 116 cm/s in distal superficial femoral artery, 101 cm/s in popliteal artery, 90 cm /s in posterior tibial artery, 66 cm/s in anterior tibial artery, and 56 cm/s in dorsalis pedis. In the left lower limb, peak systolic velocity is 156 cm/s in common femoral artery, 81 cm/s in deep femoral artery, 130 cm/s in proximal superficial femoral artery, 117 cm/s in mid superficial femoral artery, 117 cm/s in distal superficial femoral artery, 73 cm/s in popliteal artery, 123 cm/s in poste rior tibial artery, 94 cm/s in anterior tibial artery, and 89 cm/s in dorsalis pedis. IMPRESSION: 1. No significant arterial occlusive disease. Reviewed, dictated and finalized at location A. TURNER
--- NOTE | ~2022-04-07 | CT_ITS ---
EXAMINATION: CT abdomen pelvis w con DATE: 04/07/2022 10:11 INDICATION: Right upper quadrant pain. Rib pain. Nausea and vomiting. TECHNIQUE: Computed tomography (CT) of the abdomen and pelvis was performed with 100 cc Omnipaque 350 intravenous contrast. The dose-length product was 659.13 mGy-cm. Automated exposure control and iter ative reconstruction technique were employed. COMPARISON: CT dated 01/01/2021. FINDINGS: Lung bases are unremarkable. Borderline heart size. No significant pleural or pericardial e ffusion. Moderate diffuse atherosclerosis of the aorta without aneurysm. No lymphadenopathy. Fatty infiltration of the liver. There are gallstones. No focal hepatic masses. The spleen, pancreas, adrenal glands are unremarkable. There is bilateral renal atrophy. There are nonobstructing right re nal stones. There are stones at the right UVJ with moderate right hydroureteronephrosis. There are le ft renal parapelvic cysts. No significant left hydronephrosis. Bladder is not well distended, althoug h unremarkable. Prostate gland mildly prominent. Colonic diverticulosis without evidence for divertic ulitis. Severe lumbar spondylosis. No focal lytic or blastic lesions. There is osteoarthritis of the hips. Mild levoscoliosis. IMPRESSION: 1. Obstructing distal right ureteral stones at the UVJ with moderate hydroureteronephrosis. 2: Nonobstructing right nephrolithiasis. 3: Bilateral renal atrophy. 4: Cholelithiasis. Reviewed, dictated and finalized at location B. HAND IMPRESSION: 1. Obstructing distal right ureteral stones at the UVJ with moderate hydrourete ronephrosis. 2: Nonobstructing right nephrolithiasis. 3: Bilateral renal atrophy. 4: Cholelithiasis.
[2022-04-07 09:17] LABS: Basophils Absolute Auto 0.1 K/mm3 (0.0-0.1); Basophils Percent Auto 0.6 % (0.2-1.2); Eosinophils Absolute Auto 0.1 K/mm3 (0-0.3); Eosinophils Percent Auto 1.1 % (0-4.4); Hematocrit 37.9 % (42.0-52.0); Hemoglobin 12.5 g/dL (14.0-18.0); Immature Granulocyte Absolute 0.02 K/mm3 (0.00-0.031); Immature Granulocyte Percent A 0.3 % (0-0.5); Lymphocytes Absolute Auto 1.23 K/mm3 (0.9-3.2); Lymphocytes Percent Auto 15.4 % (18.3-44.2); Mean Corpuscular Hemoglobin 34.2 pg (26-34); Mean Corpuscular Volume 103.8 fl (80-100); Mean Platelet Volume 10.2 fl (7.4-10.4); Monocytes Absolute Auto 0.7 K/mm3 (0.1-0.6); Monocytes Percent Auto 8.3 % (2.6-8.5); Neutrophils Absolute Auto 5.9 K/mm3 (1.3-6.7); Neutrophils Percent Auto 74.3 % (45.5-73.1); Platelet Count Result 156 k/mm3 (150-375); Red Blood Count 3.65 M/mm3 (4.6-6.20); Red Cell Distribution Width 13.8 % (11.5-14.5)
[2022-04-07 09:31] LABS: Alanine Aminotransferase 30 U/L (6-50); Albumin Level 4.4 g/dL (3.5-5.1); Alkaline Phosphatase 87 U/L (38-126); Anion Gap 11 mmol/L (8-16); Aspartate Amino Transferase 40 U/L (17-59); Bilirubin,Total 1.3 mg/dL (0.2-1.3); Blood Urea Nitrogen 28 mg/dL (9-20); Calcium 9.5 mg/dL (8.4-10.2); Carbon Dioxide 23 mmol/L (22-30); Chloride 104 mmol/L (98-107); Estimated CRCL calculation 36 ml/min; Estimated Glomerular Filt Rate 48; Glucose 115 mg/dL (65-110); Lipase 52 U/L (23-300); Potassium 4.2 mmol/L (3.4-5.0); Sodium 138 mmol/L (137-145)
[2022-04-07 09:36] LABS: Appearance Urine Clear (Clear); Bilirubin Urine Negative (Negative); Blood Urine 2+ (Negative); Color Urine Yellow (Yellow); Glucose Urine UA Negative (Negative); Ketones Urine 1+ mg/dL (Negative); Leukocyte Esterase Ur Negative LEU/UL (Negative); Nitrate Urine Negative (Negative); Protein Urine Negative (Negative); Urobilinogen Urine 0.2 mg/dL (<2.0)
[2022-04-07 09:39] LABS: Mucus Urine Rare /lpf; Squamous Epithelial Cell Urine Rare /hpf (Few); WBC Urine 0-3 /hpf
[2022-04-07 09:43] LABS: Add Urine Microscopic? YES
--- NOTE | 2022-04-07 09:48 | ED.ABDPAIN ---
HPI - Abdominal Pain General Chief Complaint: Abdominal Pain Stated Complaint: R. upper abd pain Time Seen by Provider: 04/07/22 09:38 History of Present Illness HPI narrative: Patient is an 86-year-old male with a history of hyperlipidemia, hypertension, CAD here for evaluation of right-sided upper abdominal pain for the past day. Patient states the pain came on while he was working in the yard, since then has been relatively constant but worse after eating meals. Also notes several episodes of vomiting nonbloody/nonbilious emesis after every p.o. trial. Reports subjective fevers. Has history of appendectomy but still has his gallbladder. No diarrhea, constipation, cough, chest pain, diaphoresis, leg swelling. Patient follows with Dr. Paris; he does note that he has had twinges of chest pressure over the last month and does note increased exertional shortness of breath over the past several days, none today. Related Data Home Medications Medication Instructions Recorded Confirmed aspirin 81 mg chewable tablet 81 mg PO DAILY 07/21/19 01/07/22 glucosamine HCl 1,500 mg tablet 1,500 mg PO BID 07/21/19 01/07/22 multivitamin 1 tablet PO DAILY 07/21/19 01/07/22 Allergies Allergy/AdvReac Type Severity Reaction Status Date / Time clopidogrel Allergy Intermediate Red Rash Verified 04/07/22 09:50 Review of Systems Review of Systems: Gen: Denies fevers or chills Eyes: Denies eye pain or visual change ENT: Denies congestion Respiratory: Denies shortness of breath or cough CV: Denies chest pain or palpitations GI: Abdominal pain, nausea and vomiting. Denies diarrhea denies burning, urgency, frequency or hematuria Musculoskeletal: Denies back pain or muscle pain Neuro: Denies numbness, tingling, weakness or focal weakness Skin: Denies rash Except as documented, all other systems reviewed and negative [facility] Past Medical History Medical History COVID-19 Essential hypertension Kidney stones Mixed hyperlipidemia Surgical History Surgical History History of appendectomy Family History Family History Father Family history of cardiovascular disease, Onset Age: 79 Family history of malignant neoplasm, Onset Age: 79 Family history of heart disease in male family member before age 55 Heart attack Other Family history of arthritis Hypertension Social History Social History Smoking status: Former smoker Smoking end date: 05/18/76 Alcohol intake: current Alcohol use details: social Substance use: never Substance use type: does not use Gender identity (if verbalized by the patient): Male Sexual Orientation (if Verbalized by the Patient): Straight or Heterosexual Exam Narrative: APPEARANCE: Well appearing, no pain in distress, well-nourished. Head: Normocephalic and atraumatic. EYES: PERRLA/EOMI, conjunctivae clear NOSE: No nasal drainage EARS: External ear normal in appearance THROAT: Oropharynx is clear. Mucous membranes are moist. NECK: Supple. No adenopathy, no masses. RESPIRATORY: Airway patent, respirations nonlabored. Clear to auscultation bilaterally, no rales, rhonchi, wheezing. CARDIOVASCULAR: Regular rate and rhythm without murmurs, rubs, or gallops. ABDOMINAL: Normoactive bowel sounds. Soft, nontender, nondistended. No rebound tenderness or guarding. MUSCULOSKELETAL: Extremities are warm and well-perfused. Moves all extremities well. No edema. NEURO: Normal speech. No focal neurologic deficits. SKIN: Skin is warm and dry. No rashes. PSYCHIATRIC: Normal affect/mood. Course Vital Signs Vital signs: Vital Signs Temperature 97.4 F L 04/07/22 08:50 Pulse Rate 61 04/07/22 08:50 Respiratory Rate 16 04/07/22 08:50 Blood Pressure 153/78
--- NOTE | 2022-04-07 09:49 | ECG_ITS ---
Measurements Intervals [place] Rate: 54 P: 90 FL: 186 QRS: 190 QRSD: 110 T: 42 QT: 473 QTc: 451 Interpretive Statements SINUS BRADYCARDIA BORDERLINE R WAVE PROGRESSION, ANTERIOR LEADS BORDERLINE T WAVE ABNORMALITY- HIGH LATERAL LEADS BASELINE ARTIFACT- I, III BORDERLINE ECG NO PREVIOUS ECG AVAILABLE FOR COMPARISON Electronically Signed On 04-07-2022 10:36:24 [employer] by Rudy Li D.O.
[2022-04-07] MEDS: SODIUM CHLORIDE 0.9% IV 1,000 ML 999 ML IV CONT (09:56)
[2022-04-07] MEDS: FAMOTIDINE 20 MG/2 ML VIAL IV PUSH (09:56)
[2022-04-07] MEDS: ONDANSETRON INJ 4 MG/2 ML VIAL IV PUSH ×2 (09:56→14:35)
[2022-04-07] MEDS: MORPHINE SULFATE (*CRX) 4 MG/ML INJ IV PUSH (10:02)
[2022-04-07 10:32] LABS: Troponin I 0.162 ng/mL (0.000-0.034)
[2022-04-07 12:12] LABS: Troponin I 0.146 ng/mL (0.000-0.034)
--- NOTE | 2022-04-07 13:34 | ADMGEN ---
This patient, Jeronimo Guallpa, was admitted to IMU Room 231-01. Patient/family oriented to hospital policies and general routines including ID bracelet, bed and alarms, visiting hours, pain management, procedures, bathroom and other care routines, personal items, smoking policy, room service/diet, and visiting hours. Information on how to activate the Rapid Response Team has been discussed. Patient/Family are encouraged to report perceived risks to care and to ask questions if they do not understand what they are told or what they should do.
--- NOTE | 2022-04-07 14:18 | PM.IMHP ---
H&P: HPI History of Present Illness Date/Time: 04/07/22 14:18 Chief Complaint: Abdominal pain Narrative: This is an 86-year-old male patient who has a past medical history of having coronary artery disease with complete coronary blockage with collaterals. He also has a history of kidney stones hyperlipidemia and hypertension. The patient developed right-sided upper abdominal pain for the past day. The patient had been working in the [employer] and since then he has been having constant pain to the right flank area. He has had several episodes of vomiting nonbloody nonbilious emesis. Patient reported a subjective fever. His plan rep is Dr. Paris. The patient denies having any chest pain but occasionally has twinges of chest pressure over the last month. He has increased exertional shortness of breath as well. The patient's H&H is 12.5 and 37.9. Creatinine is 1.4 and his baseline is anywhere from 1.29-1.34. The patient was given IV fluids, Pepcid Zofran and morphine in the emergency room. Abdominal x-ray shows mild right hydronephrosis. Abdominal pelvis CT was read as the following. Obstructing distal right ureteral stones at the UVJ with moderate hydroureteronephrosis. 2: Nonobstructing right nephrolithiasis. 3:? Bilateral renal atrophy. 4: Cholelithiasis. Troponin 0.146 and 0.141 The patient has RBCs on his urinalysis. The patient is being admitted to observation status on the date of service of 04/07/2022. Review of Systems Review of Systems: See HPI All systems reviewed & are unremarkable except as noted in HPI and below Constitutional: Constitutional: Reports as per HPI and Reports no additional constitutional complaints Eyes: Eyes: Reports as per HPI and Reports no additional eye complaints ENT: Reports system reviewed and no additional complaints, except as documented and Reports Normal hearing present Cardiovascular: Cardiovascular: Reports no additional cardiovascular complaints Respiratory: Respiratory: Reports no additional respiratory complaints and Reports no additional respiratory complaints Gastrointestinal: Gastrointestinal: Reports as per HPI and Reports no additional gastrointestinal complaints Musculoskeletal: Musculoskeletal: Reports no additional musculoskeletal complaints Integumentary/Breasts: Skin/Breast: Reports system reviewed and no additional complaints, except as docu and Reports as per HPI Neurologic: Reports system reviewed and no additional complaints, except as documented, Reports as per HPI and Reports Normal hearing present Psychiatric: Psychiatric: Reports no additional psychiatric complaints and Reports as per HPI Endocrine: Endocrine: Reports no additional endocrine complaints Hematologic/Lymphatic: Hematologic/Lymphatic: Reports no additional hematologic/lymphatic complaints Allergic/Immunologic: Allergic/Immunologic: Reports no additional allergic/immunologic complaints [facility] Past Medical History Medical History (Updated 04/07/22 @ 16:44 by Danielle Casillas NP) Abnormal cystoscopy ASHD (arteriosclerotic heart disease) Chronic back pain Degenerative disc disease Chronic GERD Chronic kidney disease, stage 3 COVID-19 Epididymal mass Essential hypertension History of kidney stones Kidney stones LUQ abdominal pain Medication monitoring encounter Mixed hyperlipidemia Surgical History Surgical History (Updated 04/07/22 @ 16:34 by Danielle Casillas NP) Cataract extraction status H/O cardiac catheterization History of appendectomy History of carpal tunnel surgery History of tonsillectomy History of total bilateral knee replacement Family History Family History Father Family history of cardiovascular disease, Onset Age: 79 Family history of malignant neoplasm, Onset Age: 79 Family history of heart disease in male family member before age 55 Heart attack Other Family history of arthritis Hypertension
--- NOTE | 2022-04-07 15:23 | WPDURCON ---
Assessment and Plan Assessment and plan (1) Calculus of distal right ureter: Code(s): N20.1 - Calculus of ureter Status: Acute Assessment and Plan: Id the CT scan myself. He is currently comfortable. There is no sign of infection. There is at least a reasonable chance he is going to require intervention on the stones. Especially if there is repeat pain attacks overnight. I will order Flomax. I will ask the nurses to strain his urine. I did discuss with him ureteroscopy and stone extraction. This could potentially be done tomorrow after his cardiac issues are sorted out. His troponin seem to be trending down. I will ask the medicine team as well as Cardiology to please comment on his candidacy for a minimally invasive surgical procedure to remove the stones. (2) Elevated troponin: Code(s): R77.8 - Other specified abnormalities of plasma proteins Status: Acute (3) Hydronephrosis: Code(s): N13.30 - Unspecified hydronephrosis Status: Acute Assessment and Plan: Secondary to ureteral stones Urology Consult Note HPI Date Seen: 04/07/22 Requesting Physician: Shane Dhillon MD Primary Care Provider: Gagan SchillingMD Consult Narrative Narrative: Jeronimo Guallpa is a 86 year old male with a prior history of kidney stones. He states he had lithotripsy sometime in the distant past. He was working yesterday afternoon re- noted acute onset of right flank pain the described as stabbing. There was associated nausea. There was also some twinges of chest pain. There is no symptoms of urinary tract infection. There is no gross blood in the urine. He presented to the emergency room. CT scan was done which showed stones in the right distal ureter with moderate to mild hydronephrosis. There is elevated troponins. They seem to be trending down. I wonder if this represents demand ischemia from pain verses true coronary issues. A cardiology consult has been obtained. According to the patient they may be planning on stress test. At current his pain is well controlled. Review of Systems Review of Systems: All systems reviewed & are unremarkable except as noted in HPI and below PMFSH Past Medical History Medical History COVID-19 Essential hypertension Kidney stones Mixed hyperlipidemia Surgical History Surgical History History of appendectomy Family History Family History Father Family history of cardiovascular disease, Onset Age: 79 Family history of malignant neoplasm, Onset Age: 79 Family history of heart disease in male family member before age 55 Heart attack Other Family history of arthritis Hypertension Social History Social History Smoking status: Former smoker Tobacco type: pipe and cigars Second hand tobacco smoke exposure: No Smoking end date: 05/18/76 Alcohol intake: current Alcohol use details: social Substance use: never Substance use type: does not use Lack of Transportation: No Lack of Food: Never True Current Housing: I Have Housing Concerned About Future Housing: No Difficulty Paying Gas/Electric Bills: No Difficulty Paying for Meds: No Currently Unemployed: No Education: High School Diploma/GED Difficulty w/ Childcare or Family Care: No Gender identity (if verbalized by the patient): Male Sexual Orientation (if Verbalized by the Patient): Straight or Heterosexual Spiritual care concerns: No Meds Home Medications and Allergies Home Medications Medication Instructions Recorded Confirmed Type aspirin 81 mg chewable tablet 81 mg PO DAILY 07/21/19 04/07/22 History glucosamine HCl 1,500 mg tablet 1,500 mg PO BID 07/21/19 04/07/22 History multivitamin 1 tablet PO MARYAN
[2022-04-07 15:56] LABS: Troponin I 0.141 ng/mL (0.000-0.034)
[2022-04-07] MEDS: SODIUM CHLORIDE 0.9% IV 1,000 ML 100 ML IV CONT (19:55)
[2022-04-07] MEDS: PANTOPRAZOLE SODIUM IV 40 MG VIAL IV PUSH (19:55)
[2022-04-08] VITALS (15 sets, daily range): BP systolic 108–143; BP diastolic 54–77; PULSE 56–64; RESP 12–20; TEMP 36.3–36.8; O2SAT 97–100
--- NOTE | 2022-04-08 | ECHO_ITS ---
Patient Info Name: Jeronimo Guallpa Age: 86 years : 1935 Gender: Male Ht: 70 in Wt: 208 lbs BSA: 2.18 m2 HR: 60 bpm BP: 130 / 66 mmHg Heart Rhythm: Sinus Rhythm Technical Quality: Fair Exam Date: 04/08/2022 8:19 AM Exam Location: [facility] Patient Status: Outpatient Admit Date: 04/07/2022 Staff Ordering Physician: Danielle Casillas NP Car Whacker: Kisha Beltran RDCS Attending Provider: Shane Dhillon MD Referring Physician: Vinny RICHTER; Exam Type: CA echo doppler color flow Study Info Indications - HX of known artery disease Complete two-dimensional, color flow and Doppler transthoracic echocardiogram is performed. Summary 1. Complete two-dimensional, color flow and Doppler transthoracic echocardiogram is performed. 2. Left ventricular systolic function is normal, estimated at 50-55%. 3. There is moderate concentric increased left ventricular wall thickness. 4. Right ventricular systolic function is normal. 5. Left atrial chamber dimension is mildly enlarged. 6. There is moderate aortic valve calcification. 7. There is moderate aortic valve regurgitation. 8. There is mild mitral valve regurgitation. 9. There is mild tricuspid valve regurgitation. 10. There is moderate pulmonic regurgitation. 11. The aortic root size at the sinus of Valsalva is dilated. Left Ventricle Left ventricular chamber dimension is normal. Left ventricular systolic function is normal, estimated at 50-55%. There is moderate concentric increased left ventricular wall thickness. Right Ventricle Right ventricular chamber dimension is normal. Right ventricular systolic function is normal. Left Atria Left atrial chamber dimension is mildly enlarged. Right Atria Right atrial chamber dimension is normal. Atrial Septum Intact interatrial septum visualized by color flow imaging. Aortic Valve The aortic valve is probable trileaflet. There is no aortic valve stenosis. There is moderate aortic valve regurgitation. There is moderate aortic valve calcification. Pulmonic Valve The pulmonic valve is not well visualized. There is moderate pulmonic regurgitation. Mitral Valve The mitral valve has normal leaflets. There is no mitral valve stenosis. There is mild mitral valve regurgitation. Tricuspid Valve The tricuspid valve leaflets are normal. There is mild tricuspid valve regurgitation. Pericardium/Pleural There is no pericardial effusion. Inferior Vena Cava Normal inferior vena cava with <50% collapse upon inspiration consistent with elevated right atrial pressure. Aorta The aortic root size at the sinus of Valsalva is dilated. Left Ventricular Outflow Tract Name Value Normal LVOT 2D LVOT Diameter 2.1 cm LVOT Doppler LVOT Peak Gradient 3 mmHg LVOT Mean Gradient 2 mmHg LVOT VTI 18 cm LVOT VTI/AV VTI Ratio 0.6 LVOT Stroke Volume 61 ml LVOT CO 3.4 l/min LVOT CI
--- NOTE | 2022-04-08 04:17 | PC.NURSE ---
Care of pt to be resumed by VANESA King. Report given and all questions answered.
[2022-04-08 04:18] LABS: Basophils Percent Auto 0.5 % (0.2-1.2); Eosinophils Absolute Auto 0.1 K/mm3 (0-0.3); Eosinophils Percent Auto 1.5 % (0-4.4); Hemoglobin 12.2 g/dL (14.0-18.0); Immature Granulocyte Absolute 0.03 K/mm3 (0.00-0.031); Immature Granulocyte Percent A 0.4 % (0-0.5); Lymphocytes Absolute Auto 1.26 K/mm3 (0.9-3.2); Lymphocytes Percent Auto 14.8 % (18.3-44.2); Mean Corpuscular HGB Conc 33.9 g/dl (32-36); Mean Corpuscular Hemoglobin 34.3 pg (26-34); Mean Corpuscular Volume 101.1 fl (80-100); Mean Platelet Volume 10.3 fl (7.4-10.4); Monocytes Absolute Auto 0.9 K/mm3 (0.1-0.6); Monocytes Percent Auto 10.4 % (2.6-8.5); Neutrophils Absolute Auto 6.2 K/mm3 (1.3-6.7); Neutrophils Percent Auto 72.4 % (45.5-73.1); Platelet Count Result 143 k/mm3 (150-375); Red Blood Count 3.56 M/mm3 (4.6-6.20); Red Cell Distribution Width 13.8 % (11.5-14.5); White Blood Count 8.5 K/mm3 (4.5-10.0)
[2022-04-08 04:38] LABS: Lactic Acid Reflex 0.8 mmol/L (0.7-2.0)
[2022-04-08 04:42] LABS: Alanine Aminotransferase 26 U/L (6-50); Albumin Level 4.1 g/dL (3.5-5.1); Alkaline Phosphatase 87 U/L (38-126); Anion Gap 9 mmol/L (8-16); Aspartate Amino Transferase 32 U/L (17-59); Bilirubin,Total 1.8 mg/dL (0.2-1.3); Blood Urea Nitrogen 22 mg/dL (9-20); Calcium 8.9 mg/dL (8.4-10.2); Carbon Dioxide 21 mmol/L (22-30); Chloride 105 mmol/L (98-107); Estimated CRCL calculation 31 ml/min; Estimated Glomerular Filt Rate 41; Glucose 112 mg/dL (65-110); Lipase 53 U/L (23-300); Magnesium 1.9 mg/dL (1.6-2.3); Potassium 4.2 mmol/L (3.4-5.0); Sodium 135 mmol/L (137-145)
[2022-04-08] MEDS: SODIUM CHLORIDE 0.9% IV 1,000 ML 100 ML IV CONT (05:50)
--- NOTE | 2022-04-08 07:18 | WPDHPUPDATE1 ---
History and Physical Update Update Date/Time: 04/08/22 07:18 History and Physical has been reviewed, including an updated exam of the patient. There are NO changes in the patient's condition. Risks, benefits, and alternatives have been discussed and questions answered. Patient agrees to proceed with procedure. Plan: pending cardiac clearance patient will undergo cystoscopy with right ureteroscopy, stone extraction with possible laser lithotripsy, retrograde pyelogram and ureteral stent placement.
--- NOTE | 2022-04-08 09:03 | WPDANESEPPF ---
Anes - Initial Pre Proc Eval Procedure: Operation Date: 04/08/22 13:30 Proposed Procedures p Cystoscopy,Right Retrograde Pyelogram,Right Ureteroscopy,Right Stone Extraction Possible Holmium Laser Possible Stent Placement - Camilo Painting MD Date/Time: 04/08/22 09:03 Surgeon: Shane Dhillon MD Pre Op Diagnosis: R Sided Ureteral Stone/Elevated Troponin Patient Data Age: 86 Gender: M Height: 1.78 m Weight: 94.7 kg Last Vital Signs Temp 36.8 C 04/08/22 07:38 Pulse 57 L 04/08/22 07:38 Resp 16 04/08/22 07:38 BP 143/70 H 04/08/22 07:38 Pulse Ox 98 04/08/22 07:38 O2 Del Method Room Air 04/08/22 03:40 Allergies Allergy/AdvReac Type Severity Reaction Status Date / Time clopidogrel Allergy Intermediate Red Rash Verified 04/07/22 09:50 Home Medications Medication Instructions Recorded Confirmed Type aspirin 81 mg chewable tablet 81 mg PO DAILY 07/21/19 04/07/22 History glucosamine HCl 1,500 mg tablet 1,500 mg PO BID 07/21/19 04/07/22 History multivitamin 1 tablet PO DAILY 07/21/19 04/07/22 History rosuvastatin 20 mg tablet (Crestor) 10 mg PO DAILY #45 tabs 01/31/22 04/07/22 Rx valsartan 320 1 tablet PO DAILY #90 tabs 01/31/22 04/07/22 Rx mg-hydrochlorothiazide 12.5 mg tablet (Diovan HCT) diclofenac sodium 1 % topical gel 2 g topical BID PRN pain 04/07/22 04/07/22 History Laboratory Tests 04/07/22 04/07/22 04/07/22 09:02 09:02 09:02 WBC 8.0 K/mm3 K/mm3 (4.5-10.0) RBC 3.65 M/mm3 L M/mm3 (4.6-6.20) Hgb 12.5 g/dL L g/dL (14.0-18.0) Hct 37.9 % L % (42.0-52.0) MCV 103.8 fl H fl (80-100) MCH 34.2 pg H pg (26-34) MCHC 33.0 g/dl g/dl (32-36) RDW 13.8 % % (11.5-14.5) Plt Count 156 k/mm3 k/mm3 (150-375) MPV 10.2 fl fl (7.4-10.4) Immature Gran % (Auto) 0.3 % % (0-0.5) Neut % (Auto) 74.3 % H % (45.5-73.1) Lymph % (Auto) 15.4 % L % (18.3-44.2) [place] % (Auto) 8.3 % % (2.6-8.5) Eos % (Auto) 1.1 % % (0-4.4) Baso % (Auto) 0.6 % % (0.2-1.2) Lymph # (Auto) 1.23 K/mm3 K/mm3 (0.9-3.2) [place] # (Auto) 0.7 K/mm3 H K/mm3 (0.1-0.6) Eos # (Auto) 0.1 K/mm3 K/mm3 (0-0.3) Baso # (Auto) 0.1 K/mm3 K/mm3 (0.0-0.1) Abs Immat Gran (auto) 0.02 K/mm3 K/mm3 (0.00-0.031) Absolute Neuts (auto) 5.9 K/mm3 K/mm3 (1.3-6.7) Absolute Nucleated RBC 0.0 K/mm3 K/mm3 (0.0-0.012) Nucleated RBC % 0.0 % % (0.0-0.2) Sodium 138 mmol/L mmol/L (137-145) Potassium 4.2 mmol/L mmol/L (3.4-5.0) Chloride 104 mmol/L mmol/L (98-107) Carbon Dioxide 23 mmol/L mmol/L (22-30) Anion Gap 11 mmol/L mmol/L (8-16) BUN 28 mg/dL H mg/dL (9-20) Creatinine 1.40 mg/dL H mg/dL (0.7-1.3) Estim Creat Clear Calc 36 ml/min ml/min Estimated GFR 48 L (59 - ) Glucose 115 mg/dL H mg/dL (65-110) Lactic Acid Calcium 9.5 mg/dL mg/dL (8.4-10.2) Magnesium Ferritin Total Bilirubin 1.3 mg/dL mg/dL (0.2-1.3) AST 40 U/L U/L (17-59) ALT 30 U/L U/L (6-50) Alkaline Phosphatase 87 U/L U/L (38-126) Troponin I 0.162 ng/mL H* ng/mL (0.000-0.034) Total Protein 7.0 g/dL g/dL (6.3-8.2) Albumin 4.4 g/dL g/dL (3.5-5.1) Lipase 52 U/L U/L (23-300) TSH (Reflex) Urine Color Urine Appearance Urine pH Ur Specific [place] Urine Protein Urine Glucose (UA) Urine Ketones Ur Blood (Man) Urine Nitrate Urine Bilirubin Urine Urobilinogen Leukocyte Esterase Rfl Urine RBC Urine WBC
[2022-04-08] MEDS: TAMSULOSIN HCL 0.4 MG CAPSULE PO (09:04)
[2022-04-08] MEDS: PANTOPRAZOLE SODIUM IV 40 MG VIAL IV PUSH (09:04)
[2022-04-08] MEDS: ASPIRIN 81 MG CHEWABLE TABLET PO (09:04)
[2022-04-08] MEDS: MULTIVITAMINS THERAPEUTIC TAB (*BKC) 1 TABLET PO (09:04)
[2022-04-08] MEDS: ROSUVASTATIN 10 MG TABLET PO (09:04)
--- NOTE | 2022-04-08 09:28 | PM.CNCAR ---
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 However, he does not have ischemic symptoms at this time. Troponins are only mildly elevated and have remained flat. Not consistent with ACS. EKG is without ischemic changes. TTE done this AM, his EF is preserved without appreciable wall motion abnormalities. At this time, patient is not having acute coronary syndrome. A stress test has been ordered, but will not change perioperative management as we already know he has chronic occlusion of his LAD. Therefore, I cancelled stress test. Patient can proceed with his planned urological procedure as planned without further cardiac workup at this time. Patient to follow-up with Dr. Paris after discharge. Continue with ASA and statin. History of Present Illness History of Present Illness Consult date/time: 04/08/22 09:28 Requesting physician: Valeria Leonard PA-C Consult reason: Other (Elevated troponins) Reason For Visit: R Sided Ureteral Stone/Elevated Troponin Narrative: We are being consulted for elevated troponins. This is a patient of Dr. Paris's. [place] last saw him in 09/2021. He has a known history of CAD with LAD NURSE MIDWIFE/CLINICAL INSTRUCTOR with collateral filling. In 2019, he had exertional dyspnea which led to a follow-up cardiac catheterization. He was found to have his chronically occluded LAD which is collateralized and no further disease. At last visit, patient was doing pretty well without ischemic symptoms despite a fairly active lifestyle. Patient presented this time with right flank pain. No chest pain. Right flank pain was acute. Found with kidney stone. Urology planning for ureteroscopy and stone extraction. Patient states that prior to the development of acute right flank pain, he was doing okay. Remains fairly active at home, had recently shoveled about 20 tons of rocks at home that took him a few days. Troponins are flat x 3. ECG without ischemic changes. Review of Systems Review of Systems: 12-point ROS obtained. Negative, unless stated in HPI. [facility] Past Medical History Medical History Abnormal cystoscopy ASHD (arteriosclerotic heart disease) CAD (coronary artery disease) Chronic back pain Degenerative disc disease Chronic GERD Chronic kidney disease, stage 3 COVID-19 Epididymal mass Essential hypertension History of kidney stones Kidney stones LUQ abdominal pain Medication monitoring encounter Mixed hyperlipidemia Surgical History Surgical History Cataract extraction status H/O cardiac catheterization History of appendectomy History of carpal tunnel surgery History of tonsillectomy History of total bilateral knee replacement Family History Family History Father Family history of cardiovascular disease, Onset Age: 79 Family history of malignant neoplasm, Onset Age: 79 Family history of heart disease in male family member before age 55 Heart attack Other Family history of arthritis Hypertension Social History Social History Social History: The patient lives at home with his . He is retired from [employer]. They have 2 children. He is a social drinker. He is a former smoker. His is the durable power research attorney for healthcare. Code status full code Smoking status: Former smoker Tobacco type: pipe and cigars Second hand tobacco smoke exposure: No
[2022-04-08] MEDS: ceFAZolin 2 GM/D5W 50 ML 2 GM/50 ML BAG IVPB (13:05)
[2022-04-08] MEDS: LACTATED RINGERS 1,000 ML 30 ML IV CONT (13:30)
[2022-04-08] MEDS: LIDOCAINE HCL 2% GEL UROJET 10 ML PKG MUCOUS MEM (13:30)
--- NOTE | 2022-04-08 13:33 | P.OP_ITS ---
Procedure Note - Detailed Date of Procedure 04/08/22 Pre-op Diagnosis Right ureteral stone Post-op Diagnosis Same Procedure Performed Cystoscopy, right ureteroscopy with stone extraction Surgeon Caimlo Painting MD Anesthesia General Description of Procedure The patient was brought to the operative suite where he is prepped and draped in a routine sterile fashion while in the dorsal lithotomy position after the uneventful induction of a general LMA anesthetic. A 19F rigid cystoscope was placed in the bladder. There are no urethral strictures. His prostatic urethra measures, approximately, 2.0cm with no] median lobe enlargement. The bladder mucosa was endoscopically normal without hyperemia or neoplasm. There was a single, orthotopic ureteral orifice bilaterally. A 0.035 glidewire was advanced into the right renal pelvis under fluoroscopy. The distal ureter was dilated with an 8F/10F ureteral dilator. Ureteroscopy was undertaken with a short, tapered, semi-rigid ureteroscope and the stone was extracted with ease using a 1.9F Escape disposable stone basket. Due to the ease of this manipu lation I opted not to place a ureteral stent. The patient's bladder was emptied and was taken to the recovery room having tolerated this procedure well. Urine Output 300 Drains No Packing No Pathology Yes Complications No immediate complications Condition Stable
--- NOTE | 2022-04-08 16:17 | PM.IMPN ---
Progress Note: A&P Assessment and Plan (1) Calculus of distal right ureter: Code(s): N20.1 - Calculus of ureter Status: Acute Assessment and Plan: CT showing obstructing distal right ureteral stone with UVJ with moderate hydronephrosis and bilateral renal atrophy. Flomax started. Urology consulted and patient underwent right ureteroscopy and stone extraction. (2) Elevated troponin: Code(s): R77.8 - Other specified abnormalities of plasma proteins Status: Acute Assessment and Plan: Troponins are mildly elevated but flat. Not felt related to acute ischemia. Continue aspirin and rosuvastatin. Stress test cancelled. Echo with EF 50-55%, moderate AI and pulm regurg. Appreciate Cardiology input. (3) CATRINA (acute kidney injury): Code(s): N17.9 - Acute kidney failure, unspecified Status: Acute Assessment and Plan: Cr baseline runs 1.3 range. Cr up to 1.6 now. Suspect related to ureteral obstruction and hydronephrosis. Valsartan-HCTZ held. BP stable. Follow. (4) Hydronephrosis: Code(s): N13.30 - Unspecified hydronephrosis Status: Acute Assessment and Plan: As above. (5) Chronic kidney disease, stage 3: Code(s): N18.3 - Chronic kidney disease, stage 3 (moderate) Status: Acute Assessment and Plan: As above (6) ASHD (arteriosclerotic heart disease): Code(s): I25.10 - Atherosclerotic heart disease of [place] coronary artery without angina pectoris Status: Acute Assessment and Plan: Hx of CAD. Contineu medical management (7) Essential hypertension: Code(s): I10 - Essential (primary) hypertension Status: Acute Assessment and Plan: BP stable. Continue to hold valsartan and hydrochlorothiazide Subjective Date/time seen: 04/08/22 16:17 Interval history: 86yo male with CAD presents with abdominal pain. Assuming care. Chart reviewed. Exam Narrative: AF 97.5 137/72 56 14 99% ra Gen - NARD Chest - CTA bilaterally, nml RR CV - RRR S1/S2. Tele showing ppaced rhythm Abd - Soft, NT/ND, Positive BS Ext - No pedal edema Neuro - Alert and oriented. Nonfocal exam. Psych - Nml mood and affect Skin - Warm and dry Objective Data Vital Signs Vital Signs: Vital Signs - 24 hr 04/07/22 18:00 04/07/22 20:00 04/07/22 20:00 Temperature 98.0 F Pulse Rate 61 64 63 Respiratory Rate 20 Blood Pressure 149/73 H Pulse Oximetry 97 Oxygen Delivery Oxygen Flow Rate 04/07/22 20:00 04/07/22 22:00 04/07/22 23:30 Temperature Pulse Rate 64 73 64 Respiratory Rate 20 20 Blood Pressure Pulse Oximetry 97 97 Oxygen Delivery Room Air Room Air Oxygen Flow Rate 04/07/22 23:38 04/08/22 00:00 04/08/22 02:00 Temperature 97.9 F Pulse Rate 64 58 L 60 Respiratory Rate 18 Blood Pressure 137/65 Pulse Oximetry 99 Oxygen Delivery Oxygen Flow Rate 04/08/22 03:40 04/08/22 04:00 04/08/22 04:00 Temperature 97.9 F Pulse Rate 64 59 L 60 Respiratory Rate 20 20 Blood Pressure 130/66 Pulse Oximetry 97 97 Oxygen Delivery Room Air Oxygen Flow Rate 04/08/22 06:00 04/08/22 07:38 04/08/22 08:00 Temperature 98.2 F Pulse Rate 60 57 L 64 Respiratory Rate 16 Blood Pressure 143/70 H Pulse Oximetry 98 Oxygen Delivery Oxygen Flow Rate 04/08/22 10:00 04/08/22 08:00 04/08/22 09:01 Temperature 97.3 F L Pulse Rate 59 L 59 L Respiratory Rate 18 Blood Pressure 140/77 Pulse Oximetry 100 Oxygen Delivery Room Air Oxygen Flow Rate 04/08/22 12:00 04/08/22 12:00 04/08/22 13:30 Temperature 97.5 F L Pulse Rate 56 L 64 Respiratory Rate 18 Blood Pressure 108/57 L Pulse Oximetry 98 Oxygen Delivery Room Air Simple Face Mask Oxygen Flow Rate 8 04/08/22 13:45 04/08/22 13:54 04/08/22 14:00 Temperature Pulse Rate 61 57 L Respiratory Rate 14 12 Blood Pressure 127/54 L 113/59 L Pulse O
--- NOTE | 2022-04-08 16:34 | PM.DS ---
DS: Admitting Diagnosis Discharge Date 04/08/22 Admitting Diagnosis Abdominal pain DS: Discharge Diagnosis Discharge Diagnosis (1) Calculus of distal right ureter: Code(s): N20.1 - Calculus of ureter Status: Acute (2) Elevated troponin: Code(s): R77.8 - Other specified abnormalities of plasma proteins Status: Acute (3) CATRINA (acute kidney injury): Code(s): N17.9 - Acute kidney failure, unspecified Status: Acute (4) Hydronephrosis: Code(s): N13.30 - Unspecified hydronephrosis Status: Acute (5) Chronic kidney disease, stage 3: Code(s): N18.3 - Chronic kidney disease, stage 3 (moderate) Status: Acute (6) ASHD (arteriosclerotic heart disease): Code(s): I25.10 - Atherosclerotic heart disease of [place] coronary artery without angina pectoris Status: Acute (7) Essential hypertension: Code(s): I10 - Essential (primary) hypertension Status: Acute DS: Summary Hospital Course Reason for hospitalization: 86yo male with CAD here for abdominal pain. Please see H&P for details Hospital Course: CT showing obstructing distal right ureteral stone with UVJ with moderate hydronephrosis and bilateral renal atrophy. Flomax started. Urology consulted and patient underwent right ureteroscopy and stone extraction. Pain resolved. Troponins were mildly elevated but flat. Not felt related to acute ischemia. We continued aspirin and rosuvastatin. Stress test was cancelled by Cardiology. Echo with EF 50-55%, moderate AI and pulm regurg. Appreciate Cardiology input. Cr baseline runs 1.3 range. Cr up to 1.6 now. Suspect related to ureteral obstruction and hydronephrosis. Valsartan-HCTZ was held. BP remained stable. Bravo had clinical improvement. He overall did well and was able to be discharged on 04/08/22. Status at Discharge Cognitive/behavioral status at discharge: stable Time Spent with Patient Time attestation: Total time spent providing and/or coordinating discharge services: 31 minutes Time spent: Greater than 30 minutes Exam Narrative: AF 97.5 137/72 56 14 99% ra Gen - NARD Chest - CTA bilaterally, nml RR CV - RRR S1/S2. Tele showing paced rhythm Abd - Soft, NT/ND, Positive BS Ext - No pedal edema Psych - Nml mood and affect Skin - Warm and dry DS: Data Data Completed and Pending Pending studies at discharge: Pending at discharge 04/08/22 13:24 Surgical [PTH] Routine Labs on day of discharge: Labs from last 24 hours 04/08/22 04/08/22 04/08/22 04:03 04:03 04:03 WBC RBC Hgb Hct MCV MCH MCHC RDW Plt Count MPV Immature Gran % (Auto) Neut % (Auto) Lymph % (Auto) [place] % (Auto) Eos % (Auto) Baso % (Auto) Lymph # (Auto) [place] # (Auto) Eos # (Auto) Baso # (Auto) Abs Immat Gran (auto) Absolute Neuts (auto) Absolute Nucleated RBC Nucleated RBC % Sodium 135 L Potassium 4.2 Chloride 105 Carbon Dioxide 21 L Anion Gap 9 BUN 22 H Creatinine 1.60 H Estim Creat Clear Calc 31 Estimated GFR 41 L Glucose 112 H Lactic Acid 0.8 Calcium 8.9 Magnesium 1.9 Ferritin 67.20 Total Bilirubin 1.8 H AST 32 ALT 26 Alkaline Phosphatase 87 Total Protein 7.0 Albumin 4.1 Lipase 53 TSH (Reflex) 2.320 04/08/22 04:03 WBC 8.5 RBC 3.56 L Hgb 12.2 L Hct 36.0 L MCV 101.1 H MCH 34.3 H MCHC 33.9 RDW 13.8 Plt Count 143 L MPV 10.3 Immature Gran % (Auto) 0.4 Neut % (Auto) 72.4 Lymph % (Auto) 14.8 L [place] % (Auto) 10.4 H Eos % (Auto) 1.5 Baso % (Auto) 0.5 Lymph # (Auto) 1.26 [place] # (Auto) 0.9 H Eos # (Auto) 0.1 Baso # (Auto) 0.0 Abs Immat Gran (auto) 0.03 Absolute Neuts (auto) 6.2 Absolute Nucleated RBC 0.0 Nucleated RBC % 0.0 Sodium Potassium Chloride Carbon Dioxide Anion Gap BUN Creatinine Estim Creat Clear Calc Estimated GFR Gl
== END 2022-04-08 16:53 | disposition home or self-care (01) ==
LOC: ANHED 11:32 → ANHIMU 15:49
PROVIDERS: Nurse Practitioner; Physician Assistant; Urology; Admitting Provider Chiropractor; Emergency Provider Emergency Medicine; PCP Family Medicine; Visit Provider Internal Medicine
PROC: (CPT 52352; principal; 2022-04-08 13:30)
DX: N13.2 Hydronephrosis with renal and ureteral calculous obstruction (principal); R77.8 Other specified abnormalities of plasma proteins; N17.9 Acute kidney failure, unspecified; I12.9 Hypertensive chronic kidney disease with stage 1 through stage 4 chronic kidney disease, or unspecified chronic kidney disease; N18.30 Chronic kidney disease, stage 3 unspecified; E78.2 Mixed hyperlipidemia; R00.1 Bradycardia, unspecified; I25.10 Atherosclerotic heart disease of native coronary artery without angina pectoris; R09.89 Other specified symptoms and signs involving the circulatory and respiratory systems; K21.9 Gastro-esophageal reflux disease without esophagitis; F41.9 Anxiety disorder, unspecified; I08.3 Combined rheumatic disorders of mitral, aortic and tricuspid valves; F10.90 Alcohol use, unspecified, uncomplicated; Z90.49 Acquired absence of other specified parts of digestive tract; Z87.891 Personal history of nicotine dependence; Z87.442 Personal history of urinary calculi; Z86.16 Personal history of COVID-19; Z79.82 Long term (current) use of aspirin; Z79.899 Other long term (current) drug therapy; Z82.49 Family history of ischemic heart disease and other diseases of the circulatory system
CPT/HCPCS: 52320; 36415; 74018; 74177; 80053; 81001; 82365; 82728; 83605; 83690; 83735; 84443; 84484; 85025; 88300; 93005; 93306; 93925; 96361; 96374; 96375; 96376; 99199; 99285; A9270; C1769; C9113; G0378; J0690; J1100; J2270; J2405; J2704; J3010; J7030; J7120; Q9967

== ENCOUNTER 2023-03-20 05:33 | Day surgery (SDC) | payer MEDICARE, SELFPAY ==
[2023-03-20] VITALS (9 sets, daily range): BP systolic 94–126; BP diastolic 60–83; PULSE 52–72; RESP 11–18; TEMP 36.5; O2SAT 97–100; BMI 30.5
--- NOTE | 2023-03-20 10:30 | ECG_ITS ---
Measurements Intervals [place] Rate: 58 P: 69 DE: 219 QRS: 201 QRSD: 110 T: 59 QT: 472 QTc: 467 Interpretive Statements SINUS BRADYCARDIA WITH SINUS ARRHYTHMIA WITH FIRST DEGREE AV BLOCK DELAYED PRECORDIAL R/S TRANSITION BORDERLINE ECG COMPARED TO ECG 03/20/2023 10:42:21 SINUS BRADYCARDIA NOW PRESENT FIRST DEGREE AV BLOCK NOW PRESENT Electronically Signed On 03-20-2023 12:29:00 CDT by Rudy Li D.O.
[2023-03-20 11:10] LABS: Anion Gap 7 mmol/L (8-16); Blood Urea Nitrogen 34 mg/dL (9-20); Calcium 9.3 mg/dL (8.4-10.2); Carbon Dioxide 25 mmol/L (22-30); Chloride 107 mmol/L (98-107); Estimated Glomerular Filt Rate 44; Glucose 106 mg/dL (65-110); Potassium 4.2 mmol/L (3.4-5.0); Sodium 139 mmol/L (137-145)
--- NOTE | 2023-03-20 11:27 | WPDMODSED ---
Moderate Sedation Note-Pt Data Patient Data Diagnosis: Chronic coronary artery disease with medical therapy Recent development of atrial fibrillation with symptoms of fatigue and reduction in stamina Present Complaint: Mild MAYEN Procedure to be performed/Plan: DC cardioversion Allergies Allergy/AdvReac Type Severity Reaction Status Date / Time clopidogrel Allergy Intermediate Red Rash Verified 03/20/23 10:46 Home Medications Medication Instructions Recorded Confirmed Type glucosamine HCl 1,500 mg tablet 1,500 mg PO DAILY 07/21/19 03/20/23 History multivitamin 1 tablet PO DAILY 07/21/19 03/20/23 History rosuvastatin 20 mg tablet (Crestor) 10 mg PO DAILY #45 tabs 01/31/22 03/20/23 Rx valsartan 320 1 tablet PO DAILY #90 tabs 01/31/22 03/20/23 Rx mg-hydrochlorothiazide 12.5 mg tablet (Diovan HCT) amiodarone 200 mg tablet 200 mg PO DAILY 03/19/23 03/20/23 History apixaban 5 mg tablet (Eliquis) 5 mg PO BID 03/19/23 03/20/23 History nitroglycerin 0.4 mg sublingual See Rx Instructions .Route 03/20/23 03/20/23 History tablet .COMPLEX PRN Chest Pain Current Medications: Active Medications Sodium Chloride (Normal Saline Iv) 1,000 mls @ 30 mls/hr IV CONT .Q24H NHAN Sedation/Anesthesia: No previous sedation/anesthesia problems (including family history). [facility] Past Medical History Medical History Abnormal cystoscopy ASHD (arteriosclerotic heart disease) CAD (coronary artery disease) Chronic back pain Degenerative disc disease Chronic GERD Chronic kidney disease, stage 3 COVID-19 Epididymal mass Essential hypertension History of kidney stones Kidney stones LUQ abdominal pain Medication monitoring encounter Mixed hyperlipidemia Surgical History Surgical History Cataract extraction status H/O cardiac catheterization History of appendectomy History of carpal tunnel surgery History of tonsillectomy History of total bilateral knee replacement Family History Family History Father Family history of cardiovascular disease, Onset Age: 79 Family history of malignant neoplasm, Onset Age: 79 Family history of heart disease in male family member before age 55 Heart attack Other Family history of arthritis Hypertension Social History Social History Social History: The patient lives at home with his . He is retired from [employer]. They have 2 children. He is a social drinker. He is a former smoker. His is the durable power workers compensation attorney for healthcare. Code status full code Smoking status: Former smoker Tobacco type: pipe and cigars Second hand tobacco smoke exposure: No Smoking end date: 09/15/1960 Alcohol intake: current Drinks per week: 1 Alcohol use details: beer whiskey Substance use: never Substance use type: does not use Lack of Transportation: No Lack of Food: Never True Current Housing: I Have Housing Concerned About Future Housing: No Difficulty Paying Gas/Electric Bills: No Difficulty Paying for Meds: No Currently Unemployed: No Education: High School Diploma/GED Difficulty w/ Childcare or Family Care: No Living arrangements: with family Gender identity (if verbalized by the patient): Male Sexual Orientation (if Verbalized by the Patient): Straight or Heterosexual Spiritual care concerns: No Mod Sed Physical Exam Physical Exam Pre Procedural Exam: Normal: Neck, Throat, Airway, Lungs, Heart Size, Neuro Exam and Extremities and Variation: Appearance (Pleasant elderly man no distress), Heart Rate and Heart Rhythm (Irregularly irregular) Hours since solid foods: 12 Hours since liquid intake: 12 Mallampati Classification: class II Internal Medicine - PN: Obj Da Vital Signs Vital Signs: Vital Signs - 24 hr 11
[2023-03-20] MEDS: ATROPINE SULFATE 1 MG/10 ML SYRINGE IV PUSH (11:42)
--- NOTE | 2023-03-20 11:50 | WPDCARDPROC ---
Cardiac Cath Procedure Note Date of procedure:: 03/20/23 Performing physician:: Shane Paris MD Indication:: Recent onset of atrial fibrillation Brief clinical history:: This is an 87-year-old man with chronic stable coronary artery disease when follow-up was noted to have developed atrial fibrillation. He symptomatic with fatigue and lack of energy. An attempt at restoring sinus rhythm electrically has been recommended. He has been anticoagulated with apixaban and treated with amiodarone for the last month. Procedure Procedure performed:: DC cardioversion Sedation/Medication given:: Intravenous propofol dosage of 40 mg Estimated blood loss:: 0 blood loss Procedure note:: Patient was brought to the cardiac catheterization lab in the postabsorptive state defibrillator patches were placed in the AP position IV access was established in the left upper extremity. The patient was then given 1 mg of intravenous atropine with flushed with saline then a 40 mg IV push dose of propofol was used which provided very good procedural sedation. He was counter shocked with 200 joules x1 attempt which restored normal sinus rhythm. Findings:: As above Conclusion:: Successful uncomplicated DC cardioversion terminating atrial fibrillation restoring sinus rhythm using 200 joules x1 shock Shane Freire MD [facility]
--- NOTE | 2023-03-20 12:15 | ECG_ITS ---
Measurements Intervals [place] Rate: 63 P: [place]: 0 QRS: 195 QRSD: 110 T: 60 QT: 442 QTc: 454 Interpretive Statements ATRIAL FIBRILLATION RIGHT AXIS DEVIATION INCOMPLETE RIGHT BUNDLE BRANCH BLOCK DELAYED PRECORDIAL R/S TRANSITION BASELINE ARTIFACT- II, III ABNORMAL ECG COMPARED TO ECG 04/07/2022 10:24:59 ATRIAL FIBRILLATION NOW PRESENT Electronically Signed On 03-20-2023 11:04:24 CDT by Rudy Li D.O.
== END 2023-03-20 12:59 | disposition home or self-care (01) ==
PROVIDERS: PCP Family Medicine; Visit Provider Specialist
PROC: 5A2204Z Restoration of Cardiac Rhythm, Single (ICD-10-PCS; principal; 2023-03-20 12:00)
DX: I48.91 Unspecified atrial fibrillation (principal); R00.1 Bradycardia, unspecified; I25.10 Atherosclerotic heart disease of native coronary artery without angina pectoris; I44.0 Atrioventricular block, first degree; K21.9 Gastro-esophageal reflux disease without esophagitis; I12.9 Hypertensive chronic kidney disease with stage 1 through stage 4 chronic kidney disease, or unspecified chronic kidney disease; N18.30 Chronic kidney disease, stage 3 unspecified; G89.29 Other chronic pain; M54.9 Dorsalgia, unspecified; Z86.16 Personal history of COVID-19; E78.2 Mixed hyperlipidemia; F10.90 Alcohol use, unspecified, uncomplicated; Z87.891 Personal history of nicotine dependence; Z79.01 Long term (current) use of anticoagulants; Z79.899 Other long term (current) drug therapy; Z82.49 Family history of ischemic heart disease and other diseases of the circulatory system
CPT/HCPCS: 36415; 80048; 83735; 92960; J2704; J7030

== ENCOUNTER 2024-04-05 10:25 | Outpatient (CLI) | payer MEDICARE, SELFPAY | END 2024-04-05 10:26 | disposition home or self-care (01) | LOC: CHSLAB 10:30 | PROVIDERS: PCP Family Medicine; Visit Provider Specialist | DX: C44.619 Basal cell carcinoma of skin of left upper limb, including shoulder (principal) | CPT/HCPCS: 88305 ==

== ENCOUNTER 2024-06-27 08:58 | Outpatient (CLI) | payer MEDICARE, SELFPAY ==
--- NOTE | ~2024-06-27 | XR_ITS ---
EXAMINATION: XR chest 2V DATE: 06/27/2024 09:48 INDICATION: Long-term current use of amiodarone. TECHNIQUE: Frontal and lateral views of the chest were obtained. COMPARISON: Chest 2 views 04/14/2011, CT abdomen and pelvis 03/07/2022, CT abdomen 01/01/21 FINDINGS: There are reticular opacities at the lung bases. No pleural effusion or pneumothorax. Cardi omegaly is noted. IMPRESSION: 1. Reticular opacities at the lung bases, consistent with mild atelectasis versus mild chronic inters titial lung disease. 2. Cardiomegaly. Reviewed, dictated and finalized at location A. H IMPRESSION: 1. Reticular opacities at the lung bases, consistent with mild atelectasis vers us mild chronic interstitial lung disease. 2. Cardiomegaly.
--- OUTSIDE RECORDS SUMMARY | 2024-06-27 09:22 | XMS_ITS | Clinical Summary ---
Author Organization [facility] [address] [address] Address [address] [place] [address] Care Team Providers Care Salvage Inspector Name Role Phone Ruth Nayak MD Primary Care Provider Allergies Active Allergy Reactions Criticality Noted Date Comments Clopidogrel Rash,Unknown Medium 06/23/2012 Medications valsartan-hydro chlorothiazide (DIOVAN-HCT) 320-12.5 mg per tablet take 1 tablet by oral route every day 0 0 4 Active multivitamin (MULTIPLE VITAMINS) tablet tablet take 1 by Oral route once 0 0 4 Active rosuvastatin (CRESTOR) 10 mg tablet take 1 tablet by oral route every day 0 0 4 Active glucosamine HCl 1,500 mg tablet take 2 times daily 0 0 4 Active aspirin 81 mg enteric coated tablet Take 1 tablet (81 mg total) by mouth daily Active apixaban (Eliquis) 5 mg tablet Take 1 tablet (5 mg total) by mouth 2 (two) times a day 180 tablet 3 4 Active amiodarone (PACERONE) 200 mg tablet Take 1 tablet (200 mg total) by mouth daily 90 tablet 3 4 11/18/19 25 Active nitroglycerin (NITROSTAT) 0.4 mg SL tabletIndicatio ns:Coronary artery disease involving [place] coronary artery of [place] heart without angina pectoris Place 1 tablet (0.4 mg total) under the tongue every 5 (five) minutes as needed for chest pain (May repeat q 5 minutes up to 3 doses in 15 minutes) 25 tablet 3 5 Active nitroglycerin (NITROSTAT) 0.[address] 1 tablet (0.4 mg total) under the tongue every 5 (five) minutes as needed for chest pain (May repeat q 5 minutes up to 3 doses in 15 minutes) 25 tablet 3 3 06/27/19 25 Discontinu ed(Reorder ) Active Problems Problem Noted Date Diagnosed Date Persistent atrial fibrillation 03/10/2023 Coronary artery disease invo lving [place] coronary artery of [place] heart without angina pectoris 07/14/2017 Encounters Date Type Department Care Team Description 06/27/2024 8:00 AM CONSTRUCTION ECONOMIST Office Visit [facility] Cardiology [address] [place] [phone] Dariela Moore NP group home current use of amiodarone (Primary Dx); Coronary artery disease involving [place] coronary artery of [place] heart without angina pectoris 04/18/2024 Telephone [facility] Cardiology [address] [place] [phone] Shane Paris MD Shortness of Breath; Fatigue; Blurred Vision 04/01/2024 3:00 PM CONSTRUCTION ECONOMIST Office Visit [facility] Cardiology [address] [place] [phone] Shane Paris MD Coronary artery disease involving [place] coronary artery of [place] heart without angina pectoris (Primary Dx) from Last 3 Months Surgical History Surgery Date Site/Laterality Comments CARDIOVERSION Medical History Medical History Date Comments CAD (coronary artery disease) Social History Tobacco Use Types Packs/Day Years Used Date Smoking Tobacco: Former Smokeless Tobacco: Never Tobacco Cessation:Counseling Given: Not Answered Alcohol Use Standard Drinks/Week Comments Yes 0 (1 standard drink = 0.6 oz pur e alcohol) Sex and Gender Information Value Date Recorded Sex Assigned at Not on file Legal Sex Male 12:19 PM CONSTRUCTION ECONOMIST Gender Identity Not on file Sexual Orientation Not on file Obstetrics History Last Filed Vital Signs Vital Sign Reading Time Taken Comments Blood Pressure 120/64 06/27/2024 7:59 AM CONSTRUCTION ECONOMIST Pulse 52 06/27/2024 7:59 AM CONSTRUCTION ECONOMIST Temperature 36.9 C (98.4 F) 04/14/2017 8:27 AM CONSTRUCTION ECONOMIST Respiratory Rate - - Oxygen Saturation 99% 06/27/2024 7:59 AM CONSTRUCTION ECONOMIST Inhaled Oxygen Concentration - - Weight 87.5 kg (193 lb) 06/27/2024 7:59 AM CONSTRUCTION ECONOMIST Height 177.8 cm (5' 10 ) 06/27/2024 7:59 AM CONSTRUCTION ECONOMIST Body Mass Index 27.69 06/27/2024 7:59 AM CONSTRUCTION ECONOMIST Plan of Treatment Health Maintenance Due Date Last Done Comments Depression Screening 1936 Fall Risk Assessment 1936 DTaP/Tdap/Td Vaccine (1 - Tdap) 12/01/1947 Hepatitis B Screening 1954 Pneumococcal vaccine 65+ (1 of 1 - PCV) 2001 Well Visit 65+ 2001 Zoster Vaccine (2 of 3) 07/30/2018 06/04/2018 Influenza Vaccine (#1) 2024 8, 05/03/2014, 04/27/2013, Additional history exists Insurance MEDICARE MEDICARE [facility] MEDICARE SUPPLEMENT Care Teams Salvage Inspector Relationship Specialty Start Date End Date Ruth Nayak MD [address] [place] [id number] PCP - General Family Medicine 03/10/23
--- OUTSIDE RECORDS SUMMARY | 2024-06-27 09:22 | XMS_ITS | Clinical Summary ---
Author Organization [facility] Address [facility] [place] [address] Care Team Providers Care Manager Heavy Duty Name Role Phone Dragan Pena MD Unavailable [phone] Gagan Schilling MD Primary Care Provider [phone] Source Comments [facility],non-owned Affiliates and Associated Physician Practices is amultiple site organization consisting of ambulatory clinics and hospital sitesin [place], [place], [place] and [place]. This disclosure is being madepursuant to the Care Everywhere program and may not contain all information available regarding this patient. Last updated 18.[facility] Allergies Active Allergy Reactions Criticality Noted Date Comments Clopidogrel Rash Medium 06/23/2012 Medications * Be aware that medications may not be up to date on this document. Alwaysverify current medications with the patient. Medication Sig Dispensed Refills Start Date End Date Status rosuvastatin (CRESTOR) 10 MG tablet Take 10 mg by mouth once daily. Active valsartan-hydrochlo rothiazide (DIOVAN HCT) 320-12.5 MG tablet Take 1 Tab by mouth once daily. Instructed to take AM of surgery Active Glucosamine-Chondro it-Vit C-Mn (GLUCOSAMINE CHONDR 500 COMPLEX PO) Take by mouth once daily. Active multivitamin daily (THERAGRAN) tablet Take 1 Tab by mouth daily with food. Active budesonide-formoter ol (SYMBICORT) 160-4.5 MCG/ACT inhaler Inhale 2 Puffs by mouth as needed. Active ALPRAZolam (XANAX) 0.5 MG tablet Take 0.5 mg by mouth 3 times daily as needed. Active famotidine (PEPCID) 20 MG tablet Take 20 mg by mouth once daily. Instructed to take AM of surgery Active acetaminophen (TYLENOL) 325 MG tablet Take 2 Tabs by mouth every 4 hours as needed. Maximum allowable Acetaminophen amount = 4 Grams (4000 mg) / 24 hours. 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 02/15/2013 Knee joint replacement by other means 12/27/2012 Osteoarthrosis involving lower leg 06/23/2012 Overview (08/11/2015): 2015 IMO Updt Family History Medical History Relation Name Comments CAD (Coronary Artery Disease) Brother Hypertension Brother CAD (Coronary Artery Disease) Father Hypertension Father Hypertension Mother Relation Name Status Comments Brother Father Mother Social History Tobacco Use Types Packs/Day Years Used Date Smoking Tobacco: Former Cigars Q uit: 05/18/1979 Smokeless Tobacco: Former Chew Quit: 05/18/1979 Alcohol Use Standard Drinks/Week Comments Yes 0 (1 standard drink = 0.6 oz pur e alcohol) occasional beer Sex and Gender Information Value Date Recorded Sex Assigned at Not on file Gender Identity Not on file Sexual Orientation Not on file Last Filed Vital Signs Vital Sign Reading Time Taken Comments Blood Pressure 105/61 12/08/2013 8:39 AM CDT Pulse 73 12/08/2013 8:39 AM CDT Temperature 37.5 C (99.5 F) 12/08/2013 8:39 AM CDT Respiratory Rate 18 12/08/2013 8:39 AM CDT Oxygen Saturation 97% 12/08/2013 9:39 AM CDT Inhaled Oxygen Concentration - - Weight 92.9 kg (204 lb 12.8 oz) 12/05/2013 6:48 AM CDT Height 177.8 cm (5' 10 ) 12/05/2013 6:48 AM CDT Body Mass Index 29.39 12/05/2013 6:48 AM CDT Plan of Treatment Upcoming Encounters Date Type Department Care Team (Late st Contact Info) Description 08/05/2024 11:10 AM CDT Office Visit [facility] Orthopedics [id number] [facility], [address] [phone] [place] [address] [facility] [address] [place] [address] Health Maintenance Due Date Last Done Comments MEDICARE AWV 12 MONTHS 1935 DTAP/TDAP/TD VACCINES (1 - Tdap) 12/01/1955 PNEUMOCOCCAL VACCINE 50+ (1 of 1 - PCV) 1986 ZOSTER VACCINE (1 of 2) 1986 Respiratory Syncytial Virus (RSV) Vaccine Pt: or over 60 yrs (1 - 1-dose 75+ series) 12/01/2011 COVID-19 VACCINE ( - 2023-2 5 season) 2024 INFLUENZA VACCINE (#1) 2024 DEPRESSION SCREENING 05/18/2024 HEPATITIS B VACCINE Aged Out No longe r eligible based on patient's age to complete this topic HIB VACCINE Aged Out No longer eligi ble based on patient's age to complete this topic HPV VACCINE Aged Out No longer eligi ble based on patient's age to complete this topic MENINGOCOCCAL (Group B) VACCINE Aged Out No longer eligible based on patient's age to complete this topic MENINGOCOCCAL VACCINE Aged Out No feliberto marycarmen eligible based on patient's age to complete this topic Medical Devices Implanted Type Area Rubber And Pounder Device Identifier Shelf Expiration Date Model / Serial / Lot Anant Bone [place] Hv Implanted:Qty: 1 on 12/06/2012 by Dragan Pena MD at [facility] Left: [employer] 06/17/2014 [id number] / / [id number] Ins Kn Vangurd Fem Cocr Intlok L 75mm Implanted:Qty: 1 on 12/06/2012 by Dragan Pena MD at [facility] Left: [employer]nee [employer] 06/17/2022 [id number] / / [id number] Ty Tibial I Beam Fix Bar 79mm Implanted:Qty: 1 on 12/06/2012 by Dragan Pena MD at [facility] Left: [employer]nee [employer] 09/14/2022 [id number] / / [id number] Butn Pat Arcom Wire Polyeth Med 34 X 9mm Implanted:Qty: 1 on 12/06/2012 by Dragan Pena MD at [facility] Left: [employer]nee [employer] 10/15/[id number] / / [id number] Tibial Bearing 10mm X 79mm Implanted:Qty: 1 on 12/06/2012 by Dragan Pena MD at [facility] Left: Knee 10/15/2017 [id number] / / [id number] Bridg Tib Ant Stblzd 12mm X 83mm Implanted:Qty: 1 on 12/05/2013 by Dragan Pena MD at [facility] Right: [employer]nee [employer] 10/14/2018 [id number] / / [id number] Anant Bone [place]rosi Hv Implanted:Qty: 1 on 12/05/2013 by Dragan Pena MD at [facility] Right: [employer]nee [employer] 04/16/2015 [id number] / / [id number] Ins Kn Vangurd Fem Cocr R-Intlok 75.0mm Implanted:Qty: 1 on 12/05/2013 by Dragan Pena MD at [facility] Right: [employer]nee [employer] 09/15/2023 [id number] / / [id number] Ty Tibial I Beam Fix Bar 83mm Implanted:Qty: 1 on 12/05/2013 by Dragan Pena MD at [facility] Right: [employer] 08/15/2023 [id number] / / [id number] Butn Pat Arcom Wire Polyeth Med 34 X 9mm Implanted:Qty: 1 on 12/05/2013 by Dragan Pena MD at [facility] Right: [employer] 10/14/[id number] / / [id number] Advance Directives Documents on File Type Date Recorded Patient Publicity Manager Expl anation Adv Directive/Living Will/POA 12/10/2012 5:04 PM * Full Code (Latest Code Status on File) Date Activated Date Inactivated Comments 12/05/2013 10:05 AM 12/08/2013 1:41 PM * FULL RESUSCITATION Date Activated Date Inactivated Comments 12/06/2012 10:57 AM 12/09/2012 1:35 PM Care Teams Manager Heavy Duty Relationship Specialty Start Date End Date Gagan Schilling MD [address] [place] [phone] PCP - General 04/22/22 [place] [id number] [facility] [address] [place] [address] Orthopedic Surgery 12/26/13
--- OUTSIDE RECORDS SUMMARY | 2024-06-27 09:22 | XMS_ITS | Referral Summary ---
Author Organization [facility] Address [facility] [place] [address] Care Team Providers Care Steward Dishwasher Name Role Phone Dragan Pena MD Unavailable [phone] Gagan Schilling MD Primary Care Provider [phone] Source Comments [facility],non-owned Affiliates and Associated Physician Practices is amultiple site organization consisting of ambulatory clinics and hospital sitesin [place], [place], [place] and [place]. This disclosure is being madepursuant to the Care Everywhere program and may not contain all information available regarding this patient. Last updated 18.[facility] Allergies Active Allergy Reactions Criticality Noted Date [...] leg 06/23/2012 Overview (08/11/2015): 2015 IMO Updt Social History Tobacco Use Types Packs/Day Years [...] Mass Index 29.39 12/05/2013 6:48 AM CDT Functional Status Functional Status Response Date of Assess ment Is person deaf or have serious hearing difficult y? No 12/05/2013 Is person blind or have serious difficulty seein g? No 12/05/2013 Does person have serious dif ficulty walking/climbing stairs? No 12/05/2013 Does person have difficulty dressing/bathing? No 12/05/2013 Does person have difficulty doing errands alone? No 12/05/2013 Cognitive Status Response Date of Assessm ent Does person have difficulty concentrating/remembering/making decisions? No 12/05/2013 Plan of Treatment Upcoming Encounters Date Type Department Care Team (Late st Contact Info) Description 08/05/2024 11:10 AM CDT Office Visit [facility] Orthopedics [id number] [place] [phone] [place] [address] [address] Medical Devices Implanted Type Area Printing Worker Supervisor Device Identifier Shelf Expiration Date Model / Serial / Lot Anant Bone [place] Hv Implanted:Qty: 1 on 12/06/2012 by Dragan Pena MD at [facility] Left: Knee [employer] 06/17/2014 [id number] / / [id number] Ins Kn Vangurd Fem Cocr Intlok L 75mm Implanted:Qty: 1 on 12/06/2012 by Dragan Pena MD at [facility] Left: [employer]nee [employer] 06/17/2022 [id number] / / [id number] Ty Tibial I Beam Fix Bar 79mm Implanted:Qty: 1 on 12/06/2012 by Dragan Pena MD at [facility] Left: [employer] 09/14/2022 [id number] / / [id number] Devann Pat Arcom Wire Polyeth Med 34 X 9mm Implanted:Qty: 1 on 12/06/2012 by Dragan Pena MD at [facility] Left: [employer]nee [employer] 10/15/2017 [id number] / / [id number] Tibial Bearing 10mm X 79mm Implanted:Qty: 1 on 12/06/2012 by Dragan Pena MD at [facility] Left: Knee 10/15/2017 [id number] / / [id number] Bridg Tib Ant Stblzd 12mm X 83mm Implanted:Qty: 1 on 12/05/2013 by Dragan Pena MD at [facility] Right: [employer] 10/14/2018 [id number] / / [id number] Anant Bone [place] Hv Implanted:Qty: 1 on 12/05/2013 by Dragan Pena MD at [facility] Right: [employer] 04/16/2015 [id number] / / [id number] Ins Kn Vangurd Fem Cocr R-Intlok 75.0mm Implanted:Qty: 1 on 12/05/2013 by Dragan Pena MD at [facility] Right: [employer] 09/15/2023 [id number] / / [id number] Ty Tibial I Beam Fix Bar 83mm Implanted:Qty: 1 on 12/05/2013 by Dragan Pena MD at [facility] Right: [employer] 08/15/2023 [id number] / / [id number] Devann Pat Arcom Wire Polyeth Med 34 X 9mm Implanted:Qty: 1 on 12/05/2013 by Dragan Pena MD at [facility] Right: [employer]nee [employer] 10/14/2018 [id number] / / [id number] Advance Directives Documents on File Type Date Recorded Patient Course Developer Expl anation Adv Directive/Living Will/POA 12/10/2012 5:04 PM * Full Code (Latest Code Status on File) Date Activated Date Inactivated Comments 12/05/2013 10:05 AM 12/08/2013 1:41 PM * FULL RESUSCITATION Date Activated Date Inactivated Comments 12/06/2012 10:57 AM 12/09/2012 1:35 PM Care Teams Steward Dishwasher Relationship Specialty Start Date End Date Gagan Schilling MD [address] [place] [phone] PCP - General 04/22/22 [place] [id number] [address] Orthopedic Surgery 12/26/13
--- OUTSIDE RECORDS SUMMARY | 2024-06-27 09:22 | XMS_ITS | Patient Health Summary ---
Author Organization [facility] Address [address] [place] [address] Care Team Providers Care Meat Selector Name Role Phone Dragan Pena MD Unavailable [facility] Primary Care Provider [phone] Note from [facility],non-owned Affiliates and Associated Physician Practices is amultiple site organization consisting of ambulatory clinics and hospital sitesin [place], [place], [place] and [place]. This disclosure is being madepursuant to the Care Everywhere program and may not contain all information available regarding this patient. Last updated 18.[facility] Allergies * Clopidogrel(Rash) -Medium Criticality Medications * Be aware that medications may not be up to date on this document. Alwaysverify current medications with the patient. * rosuvastatin (CRESTOR) 10 MG tablet Take 10 mg by mouth once daily. * valsartan-hydrochlorothiazide (DIOVAN HCT) 320-12.5 MG tablet Take 1 Tab by mouth once daily. Instructed to take AM of surgery * Bwojyfmqvwk-Gcljixuve-Jfq C-Mn (GLUCOSAMINE CHONDR 500 COMPLEX PO) Take by mouth once daily. * multivitamin daily (THERAGRAN) tablet Take 1 Tab by mouth daily with food. * budesonide-formoterol (SYMBICORT) 160-4.5 MCG/ACT inhaler Inhale 2 Puffs by mouth as needed. * ALPRAZolam (XANAX) 0.5 MG tablet Take 0.5 mg by mouth 3 times daily as needed. * famotidine (PEPCID) 20 MG tablet Take 20 mg by mouth once daily. Instructed to take AM of surgery * acetaminophen (TYLENOL) 325 MG tablet(Started 12/07/2013) Take 2 Tabs by mouth every 4 hours as needed. Maximum allowable Acetaminophen amount = 4 Grams (4000 mg) / 24 hours. 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 Left: Knee [employer] 06/17/2014 [id number] / / [id number] Ins Kn Caroline Fem Cocr Intlok L 75mm Implanted:Qty: 1 on 12/06/2012 by Dragan Pena MD at [facility] Left: Knee [employer] 06/17/2022 [id number] / / [id number] Ty Tibial I Beam Fix Bar 79mm Implanted:Qty: 1 on 12/06/2012 by Dragan Pena MD at [facility] Left: Knee [employer] 09/14/2022 [id number] / / [id number] Butn Pat Arcom Wire Polyeth Med 34 X 9mm Implanted:Qty: 1 on 12/06/2012 by Dragan Pena MD at [facility] Left: Knee [employer] 10/15/2017 [id number] / / [id number] Tibial Bearing 10mm X 79mm Implanted:Qty: 1 on 12/06/2012 by Dragan Pena MD at [facility] Left: Knee 10/15/2017 [id number] / / [id number] Bridg Tib Ant Stblzd 12mm X 83mm Implanted:Qty: 1 on 12/05/2013 by Dragan Pena MD at [facility] Right: Knee [employer] 10/14/2018 [id number] / / [id number] Anant Bone [place] Hv Implanted:Qty: 1 on 12/05/2013 by Dragan Pena MD at [facility] Right: Knee [employer] 04/16/2015 [id number] / / [id number] Ins Kn Vangurd Fem Cocr R-Intlok 75.0mm Implanted:Qty: 1 on 12/05/2013 by Dragan Pena MD at [facility] Right: Knee [employer] 09/15/2023 [id number] / / [id number] Ty Tibial I Beam Fix Bar 83mm Implanted:Qty: 1 on 12/05/2013 by Dragan Pena MD at [facility] Right: Knee [employer] 08/15/2023 [id number] / / [id number] Butn Pat Arcom Wire Polyeth Med 34 X 9mm Implanted:Qty: 1 on 12/05/2013 by Dragan Pena MD at [facility] Right: Knee [employer] 10/14/2018 [id number] / / [id number] Procedures * XR KNEE RIGHT 3VW(Performed 01/17/2014) Performed for Osteoarthrosis, unspecified whether generalized or localized, lower leg, Aftercare following joint replacement, Knee joint replacement by other means * CARDIAC RHYTHM STRIP ORDER(Performed 12/09/2013) * LAB RESULTS ORDER(Performed 12/09/2013) * HGB HCT PANEL(Performed 12/07/2013) * TROPONIN I(Performed 12/06/2013) * HGB HCT PANEL(Performed 12/06/2013) * TROPONIN I(Performed 12/05/2013) * ARTHROPLASTY TOTAL KNEE(Performed 12/05/2013) Performed for Osteoarthrosis, unspecified whether generalized or localized, lower leg * TROPONIN I(Performed 12/05/2013) * NEURAXIAL BLOCK(Performed 12/05/2013) * ECHOCARDIOGRAM 2D WITH DOPPLER(Performed 12/05/2013) Performed for Pre-op evaluation * EKG 12-LEAD(Performed 12/05/2013) Performed for Pre-op evaluation, Sinus bradycardia * COMPREHENSIVE METABOLIC PANEL(Performed 11/03/2013) Performed for Preoperative examination * CBC W AUTO DIFFERENTIAL(Performed 11/03/2013) Performed for Preoperative examination * CULTURE MSSA/MRSA(Performed 11/03/2013) Performed for Preoperative examination * EKG 12-LEAD(Performed 11/03/2013) Performed for Preoperative examination * XR KNEE LEFT 3VW(Performed 01/21/2013) Performed for Osteoarthrosis, unspecified whether generalized or localized, lower leg, Aftercare following joint replacement, Knee joint replacement by other means * CARDIAC STRESS TEST ORDER(Performed 12/10/2012) * LAB RESULTS ORDER(Performed 12/10/2012) * CARDIAC EKG ORDER(Performed 12/10/2012) * HGB HCT PANEL(Performed 12/08/2012) * HGB HCT PANEL(Performed 12/07/2012) * SPINAL BLOCK(Performed 12/06/2012) * ARTHROPLASTY TOTAL KNEE(Performed 12/06/2012) Performed for Osteoarthrosis, Unspecified Whether Generalized Or Localized, Lower Leg * CULTURE MSSA/MRSA(Performed 11/08/2012) Performed for Preoperative examination * XR KNEE BILAT 3VW(Performed 06/23/2012) Performed for Pain in joint, lower leg Results * XR KNEE 3 VW RIGHT (01/17/2014 10:46 AM CDT) Anatomical Region Laterality Modality Lower Extremity Radiographic Mira ging Narrative 01/17/2014 10:46 AM CDT Nani Hathaway, RT(R) 01/17/2014 10:46 AM See Chart For Xray Report Dragan Pena MD DIAGNOSTIC IMAGING O RDERABLES * CARDIAC RHYTHM STRIP ORDER (12/09/2013 8:13 PM CDT) Provider Unknown CARDIAC SERVICES ORD ERABLES * LAB RESULTS ORDER (12/09/2013 8:13 PM CDT) Only the most recent of2 resultswithin the time period is included. Provider Unknown LAB - THERAPEUTIC DR SHELLEY MONITORING ORDERABLES * (ABNORMAL) HGB HCT PANEL (12/07/2013 2:09 AM CDT) Only the most recent of4 resultswithin the time period is included. Hemoglobin 11.0(L) 12.0 - 17.6 gm/dL 12/07/2013 3:40 AM CDT [facility] Hematocrit 32.1(L) 35.2 - 51.7 % 12/07/2013 3:40 AM CDT [facility] Blood BLOOD SPECIMEN / Unknown 12/07/2013 2:09 AM CDT 12/07/2013 3:27 AM CDT Dragan Pnea MD LAB - HEMATOLOGY ORD ERABLES [facility] [address] [place] [address] * TROPONIN I (12/06/2013 7:02 AM CDT) Only the most recent of3 resultswithin the time period is included. Troponin I <0.015 0.000 - 0.049 ng/mL 12/06/2013 7:37 AM CDT [facility] Blood BLOOD SPECIMEN / Unknown 12/06/2013 7:02 AM CDT 12/06/2013 7:07 AM CDT Narrative [facility] - 12/06/2013 7:37 AM CDT Note: Diagnosis of myocardial infarction requires symptoms of ischemia or EKG changes of ischemia and TNI >99th of normal (0.05 ng/mL). Troponin should be drawn on initial assessment and 3-6 hours later as clinically indicated. Any condition resulting in myocardial cell damage can increase cardiac troponin levels. In addition to myocardial infarction, these include but are not limited to CHF, arrhythmia, myocarditis, and non-cardiac related causes such as pulmonary embolism, renal failure and sepsis. Leopoldo Ibrahim MD LAB - CHEMISTRY ORDE WESLY [facility] [address] [place] [address] * NEURAXIAL BLOCK (12/05/2013 8:54 AM CDT) Narrative Marii Duffy APRN-CRNA - 12/05/2013 8:54 AM CDT JNENIFER Michele 12/05/2013 8:54 AM NEURAXIAL BLOCK Patient Location: OR Pre Procedure Indication: surgical anesthesia Anticoagulation /Antithrombosis Status Confirmed: Yes Preanesthetic Checklist: patient identified, IV checked, site marked, risks and benefits discussed, surgical consent verified, monitors and equipment checked, pre-op evaluation done, timeout performed, informed consent obtained and questions answered / anesthesia plan accepted Monitors: BP and Pulse Ox Patient Condition: awake Patient Position: sitting Procedure Block Performed: spinal Prep: Betadine Sterile Field: sterile gloves, sterile field established, cap/hat and mask Approach: midline Skin Numbed with: lidocaine 1% Spinal Needle Type: Quincke Needle Gauge: 22 G Needle Length: 3.5 in Placement Site: L3-4 Number of Attempts: 1 CSF: free flow and aspiration before injection Local Anesthetic: bupivacaine 0.75% in dextrose 2 Spinal Additive: fentanyl 25 mcg Events CSF return injection not painful no paresthesia no other event Degree of Difficulty: moderate Position Post Procedure: supine Vital signs monitored and stable throughout. See Anesthesia Intraop record for details. Block Start Time: 12/05/2013 8:33 AM Block Performed by: Cecile BENAVIDEZ Marii RODRIGUEZ GENERAL ANESTHE ALEJANDRO ORDERABLES * ECHOCARDIOGRAM 2D WITH DOPPLER (AKA ECHO CONSULT) (12/05/2013 7:31 AM CDT) 12/05/2013 7:31 AM CDT Narrative [facility] - 12/05/2013 12:44 PM CDT ECHOCARDIOGRAPHY REPORT [address] [address] Transthoracic Echocardiogram 2D, M-mode, Doppler, and Color Doppler Date of Service: 12/05/2013 [id number] 1935 Age: 78 years Gender: Male Race: Height: 70 in Weight: 204 lb BSA: 2.11 m Allergies: CLOPIDOGREL Diagnoses: V72.84 - PREOP EXAM UNSPCF Reading Physician: Leopoldo Ibrahim MD Referring Physician: Leopoldo Ibrahim MD TRACK LABORER: BRENNA Alc[facility]ara [facility]: [facility] Summary: - History: - Coronary Artery Disease, CKD, Ischemic Heart Disease, Bradycardia - Procedure information: - Outpatient Surgery Room 4 @ 07:31AM - Left ventricle: - Systolic function was normal. Ejection fraction was estimated in the range of 55 % to 65 %. - There were no regional wall motion abnormalities. - Doppler parameters were consistent with abnormal left ventricular relaxation (grade 1 diastolic dysfunction). - Aortic valve: - There was mild to moderate regurgitation. - Mitral valve: - There was moderate regurgitation. - Left atrium: - The atrium was moderately to markedly dilated. - Tricuspid valve: - There was mild regurgitation. Indications: Evaluate for coronary artery disease. Evaluate preoperatively. History: Prior history: Coronary Artery Disease, CKD, Ischemic Heart Disease, Bradycardia Risk factors: hypertension, medication-treated hypercholesterolemia, and a former history of cigarette use (quitting more than one month ago). Procedure: The study was performed in the [facility]. This was a stat study. Outpatient Surgery Room 4 @ 07:31AM The transthoracic approach was used. The study included complete 2D imaging, M-mode, complete spectral Doppler, and color Doppler. Systolic blood pressure was 137 mmHg. Diastolic blood pressure was 79 mmHg. Left ventricle: Size was normal. Systolic function was normal. Ejection fraction was estimated in the range of 55 % to 65 %. There were no regional wall motion abnormalities. Doppler: Doppler parameters were consistent with abnormal left ventricular relaxation (grade 1 diastolic dysfunction). Aortic valve: demonstrated normal excursion. Doppler: There was mild to moderate regurgitation. Mitral valve: There was normal leaflet separation. Doppler: There was moderate regurgitation. Left atrium: The atrium was moderately to markedly dilated. Right atrium: Size was normal. Right ventricle: The size was normal. Tricuspid valve: There was normal leaflet separation. Doppler: There was mild regurgitation. Pulmonic valve: Doppler: There was mild regurgitation. Pericardium: There was no pericardial effusion. The pericardium was normal in appearance. System measurement tables 2D LVOT Diam: 2.1 cm CW PV Vmax: 0.7 m/s AR PHT: 1087.8 ms AV Vmax: 1.6 m/s AV maxP.7 mmHg PV maxP.2 mmHg TR Vmax: 2.7 m/s TR maxP.2 mmHg MM LA Diam: 6.2 cm AV Cusp: 2.1 cm Ao Diam: 3.5 cm EF(Teich): 67.9 % IVSd: 1.6 cm IVSs: 2.1 cm LVIDd: 5.6 cm LVIDs: 3.5 cm LVPWd: 1.6 cm LVPWs: 1.6 cm PW LVOT Vmax: 0.8 m/s MICK Vmax, Pt: 1.9 cm2 MV A Michael: 0.6 m/s MV Dec [place]: 3.1 m/s2 MV E Michael: 0.7 m/s MV E/A Ratio: 1.2 Prepared and signed by Leopoldo Ibrahim MD Signed 12/05/2013 12:43:53 Procedure Note Leopoldo Ibrahim MD - 12/05/2013 ECHOCARDIOGRAPHY REPORT [address] [address] Transthoracic Echocardiogram 2D, M-mode, Doppler, and Color Doppler Date of Service: 12/05/2013 Patient: LONG GUALLPA : 1935 Age: 78 years Gender: Male Race: Height: 70 in Weight: 204 lb BSA: 2.11 m Allergies: CLOPIDOGREL Diagnoses: V72.84 - PREOP EXAM UNSPCF Reading Physician: Leopoldo Ibrahim MD Referring Physician: Leopoldo Ibrahim MD TRACK LABORER: BRENNA Alcantara [facility]: [facility] Summary: - History: - Coronary Artery Disease, CKD, Ischemic Heart Disease, Bradycardia - Procedure information: - Outpatient Surgery Room 4 @ 07:31AM - Left ventricle: - Systolic function was normal. Ejection fraction was estimated in the range of 55 % to 65 %. - There were no regional wall motion abnormalities. - Doppler parameters were consistent with abnormal left ventricular relaxation (grade 1 diastolic dysfunction). - Aortic valve: - There was mild to moderate regurgitation. - Mitral valve: - There was moderate regurgitation. - Left atrium: - The atrium was moderately to markedly dilated. - Tricuspid valve: - There was mild regurgitation. Indications: Evaluate for coronary artery disease. Evaluate preoperatively. History: Prior history: Coronary Artery Disease, CKD, Ischemic Heart Disease, Bradycardia Risk factors: hypertension, medication-treated hypercholesterolemia, and a former history of cigarette use (quitting more than one month ago). Procedure: The study was performed in the [facility]. This was a stat study. Outpatient Surgery Room 4 @ 07:31AM The transthoracic approach was used. The study included complete 2D imaging, M-mode, complete spectral Doppler, and color Doppler. Systolic blood pressure was 137 mmHg. Diastolic blood pressure was 79 mmHg. Left ventricle: Size was normal. Systolic function was normal. Ejection fraction was estimated in the range of 55 % to 65 %. There were no regional wall motion abnormalities. Doppler: Doppler parameters were consistent with abnormal left ventricular relaxation (grade 1 diastolic dysfunction). Aortic valve: demonstrated normal excursion. Doppler: There was mild to moderate regurgitation. Mitral valve: There was normal leaflet separation. Doppler: There was moderate regurgitation. Left atrium: The atrium was moderately to markedly dilated. Right atrium: Size was normal. Right ventricle: The size was normal. Tricuspid valve: There was normal leaflet separation. Doppler: There was mild regurgitation. Pulmonic valve: Doppler: There was mild regurgitation. Pericardium: There was no pericardial effusion. The pericardium was normal in appearance. System measurement tables 2D LVOT Diam: 2.1 cm CW PV Vmax: 0.7 m/s AR PHT: 1087.8 ms AV Vmax: 1.6 m/s AV maxP.7 mmHg PV maxP.2 mmHg TR Vmax: 2.7 m/s TR maxP.2 mmHg MM LA Diam: 6.2 cm AV Cusp: 2.1 cm Ao Diam: 3.5 cm EF(Teich): 67.9 % IVSd: 1.6 cm IVSs: 2.1 cm LVIDd: 5.6 cm LVIDs: 3.5 cm LVPWd: 1.6 cm LVPWs: 1.6 cm PW LVOT Vmax: 0.8 m/s MICK Vmax, Pt: 1.9 cm2 MV A Michael: 0.6 m/s MV Dec [place]: 3.1 m/s2 MV E Michael: 0.7 m/s MV E/A Ratio: 1.2 Prepared and signed by Leopoldo Ibraihm MD Signed 12/05/2013 12:43:53 Leopoldo Ibrahim MD ECHO ORDERABLES Performing Organization Address [facility] Co de Phone Number [facility] * EKG 12-LEAD (12/05/2013 6:52 AM CDT) Only the most recent of2 resultswithin the time period is included. Ventricular Rate 39 BPM [facility] Atrial Rate 39 BPM [facility] P-R Interval 178 ms [facility] QRS Duration ms 102 ms [facility] Q-T Interval ms 480 ms [facility] QTC Calculation (Bezet) 386 ms [facility] MUSE Calculated P [place] 58 degrees [facility] MUSE Calculated R [place] 9 degrees [facility] Calculated T [place] 34 degrees [facility] Interpretation EKG Marked sinus bradycardia with sinus arrhythmia Septal infarct (cited on or before 03-NOV-2013) Abnormal ECG When compared with ECG of 03-NOV-2013 07:31, Questionable change in initial forces of Anteroseptal leads Confirmed by MD GUERDA, STEVENSON ([id number]) on 12/05/2013 3:47:41 PM [facility] MUSE 12/05/2013 6:52 AM CDT 12/05/2013 3:47 PM CDT Leopoldo Ibrahim MD ECG ORDERABLES Performing Organization Address [facility] Co de Phone Number [facility] * (ABNORMAL) CBC W AUTO DIFFERENTIAL (11/03/2013 8:43 AM CDT) WBC 5.1 4.4 - 10.7 x10^9/L 11/03/2013 10:09 AM CDT [facility] RBC 3.85 3.80 - 5.40 x10^12/L 11/03/2013 10:09 AM CDT [facility] Hemoglobin 12.7 12.0 - 17.6 gm/dL 11/03/2013 10:09 AM CDT [facility] Hematocrit 38.1 35.2 - 51.7 % 11/03/2013 10:09 AM CDT [facility] MCV 99.0(H) 80.7 - 98.3 fl 11/03/2013 10:09 AM CDT [facility] MCH 33.0 26.7 - 34.0 pg 11/03/2013 10:09 AM CDT [facility] MCHC 33.3 30.8 - 35.9 gm/dL 11/03/2013 10:09 AM CDT [facility] Platelet Count 166 153 - 416 x10^9/L 11/03/2013 10:09 AM T [facility] RDW-CV 13.6 12.1 - 14.9 % 11/03/2013 10:09 AM CDT [facility] MPV 10.5 9.4 - 12.9 fl 11/03/2013 10:09 AM CDT [facility] Neutrophils % 45.3 44.0 - 73.0 % 11/03/2013 10:09 AM T [facility] Lymphocytes % 35.8 20.0 - 43.0 % 11/03/2013 10:09 AM CDT [facility] Monocytes % 10.6 5.0 - 13.0 % 11/03/2013 10:09 AM CDT [facility] Eosinophils % 7.1(H) 0.0 - 6.0 % 11/03/2013 10:09 AM CDT [facility] Basophils % 1.0 0.0 - 2.0 % 11/03/2013 10:09 AM CDT [facility] Immature Granulocytes 0.2 0 - 1 % 11/03/2013 10:09 AM CDT [facility] Neutrophil Absolute 2.31 2.01 - 7.14 x10^9/L 11/03/2013 10:09 AM CDT [facility] Lymphocytes Absolute 1.82 1.07 - 3.94 x10^9/L 11/03/2013 10:09 AM CDT [facility] Monocytes Absolute 0.54 0.26 - 1.07 x10^9/L 11/03/2013 10:09 AM CDT [facility] Eosinophils Absolute 0.36 0 - 0.47 x10^9/L 11/03/2013 10:09 AM CDT [facility] Basophils Absolute 0.05 0 - 0.08 x10^9/L 11/03/2013 10:09 AM CDT [facility] Immature Granulocytes Absolute 0.01 0.00 - 0.06 x10^9/L 11/03/2013 10:09 AM CDT [facility] Blood BLOOD SPECIMEN / Unknown 11/03/2013 8:43 AM CDT 11/03/2013 9:54 AM CDT Dragan Pena MD LAB - HEMATOLOGY ORD ERABLES [facility] [address] [place] [address] * (ABNORMAL) COMPREHENSIVE METABOLIC PANEL (11/03/2013 8:43 AM CDT) Glucose 108(H) 74 - 106 mg/dL 11/03/2013 10:32 AM CDT [facility] Sodium 140 136 - 145 mmol/L 11/03/2013 10:32 AM CDT [facility] Potassium 4.5 3.5 - 5.1 mmol/L 11/03/2013 10:32 AM CDT [facility] Chloride 108(H) 98 - 107 mmol/L 11/03/2013 10:32 AM CDT [facility] CO2 28 22 - 31 mmol/L 11/03/2013 10:32 AM CDT [facility] Calcium 9.7 8.5 - 10.1 mg/dL 11/03/2013 10:32 AM CDT [facility] Anion Gap 4(L) 5 - 15 mmol/L 11/03/2013 10:32 AM CDT [facility] BUN 33(H) 7 - 21 mg/dL 11/03/2013 10:32 AM CDT [facility] Creatinine 0.88 0.50 - 1.30 mg/dL 11/03/2013 10:32 AM CDT [facility] eGFR by MDRD >60 mL/min/1.7 3m2 11/03/2013 10:32 AM CDT [facility] eGFR by MDRD >60 mL/min/1.7 3m2 11/03/2013 10:32 AM CDT [facility] Alkaline Phosphatase 98 38 - 126 U/L 11/03/2013 10:32 AM CDT [facility] ALT 36 12 - 78 U/L 11/03/2013 10:32 AM CDT [facility] AST 27 5 - 40 U/L 11/03/2013 10:32 AM CDT [facility] Protein Total 6.5 6.4 - 8.2 gm/dL 11/03/2013 10:32 AM CDT [facility] Albumin 3.9 3.4 - 5.0 gm/dL 11/03/2013 10:32 AM CDT [facility] Bilirubin Total 1.0 0.2 - 1.0 mg/dL 11/03/2013 10:32 AM CDT [facility] Blood BLOOD SPECIMEN / Unknown 11/03/2013 8:43 AM CDT 11/03/2013 9:54 AM CDT Dragan Pena MD LAB - CHEMISTRY HARRIETT JARRELL [facility] [address] [place] [address] * CULTURE MSSA/MRSA (11/03/2013 8:43 AM CDT) Only the most recent of2 resultswithin the time period is included. [facility] Culture Negative for MRSA/MSSA 11/04/2013 6:56 PM CDT [facility] MICROBIOLOGY Microbiology SPECIMEN FROM NASAL FOSSAE / Unknown 11/03/2013 8:43 AM CDT 11/03/2013 9:54 AM CDT Dragan Pena MD LAB - MICROBIOLOGY O RDERABLES [facility] [address] [place] [address], [facility] * XR KNEE 3 VW LEFT (01/21/2013 9:47 AM CDT) Anatomical Region Laterality Modality Lower Extremity Radiographic Mira ging Narrative 01/21/2013 9:46 AM CDT Krystyna Cummings, RT(R) 01/21/2013 9:46 AM See progress notes for results Procedure Note Zoila Krystyna E, RT(R) - 01/21/2013 9:46 AM CDT See progress notes for results Dragan Pena MD DIAGNOSTIC IMAGING O RDERABLES * CARDIAC STRESS TEST ORDER (12/10/2012 5:05 PM CDT) Narrative 12/10/2012 5:05 PM CDT Ordered by an unspecified provider. Transcriptions Document, Scanned - 12/10/2012 5:05 PM CDT Scanned Document CARDIAC SERVICES ORD ERABLES * CARDIAC EKG ORDER (12/10/2012 5:05 PM CDT) Narrative 12/10/2012 5:05 PM CDT Ordered by an unspecified provider. Transcriptions Document, Scanned - 12/10/2012 5:05 PM CDT Scanned Document CARDIAC SERVICES ORD ERABLES * OB SPINAL BLOCK (12/06/2012 9:54 AM CDT) Narrative Kevin Burroughs CRNA - 12/06/2012 9:54 AM CDT Kevin Burroughs CRNA 12/06/2012 9:54 AM Preanesthetic Checklist Completed: patient identified, IV checked, site marked, risks and benefits discussed, surgical consent, monitors and equipment checked, pre-op evaluation and questions answered / anesthesia plan accepted Spinal . Position for procedure: sitting Prep: sterile gloves, cap, mask, sterile field established, kit and supplies assembled on sterile field and skin prepped with Betadine. Needle: 22 G Quincke Location: L3-4 Location: L3-4 Response to Block: Patient Care after Block: Additional Notes: Procedure Note Kevin Burroughs CRNA - 12/06/2012 9:53 AM CDT Preanesthetic Checklist Completed: patient identified, IV checked, site marked, risks and benefitsdiscussed, surgical consent, monitors and equipment checked, pre-opevaluation and questions answered / anesthesia plan accepted Spinal . Position for procedure: sitting Prep: sterile gloves, cap, mask, sterile field established, kit andsupplies assembled on sterile field and skin prepped with Betadine. Needle: 22 G Quincke Location: L3-4 Location: L3-4 Response to Block: Patient Care after Block: Additional Notes: Kevin Boyd DanielHeike HELPER/DRIVER-SWEET GOODS MACHINE OPERATOR [place] - ANESTHESI A * XR KNEE BILAT 3 VIEWS (06/23/2012 10:47 AM ACTUARIAL MATHEMATICIAN) Anatomical Region Laterality Modality Lower Extremity Other Narrative 06/23/2012 10:47 AM ACTUARIAL MATHEMATICIAN Marylin Oliva 06/23/2012 10:47 AM See progress notes for results Procedure Note Marylin Oliva - 06/23/2012 10:47 AM CST See progress notes for results Dragan Pena MD DIAGNOSTIC IMAGING O RDERABLES Care Teams Meat Selector Relationship Specialty Start Date End Date Gagan Schilling MD [address] [place] [id number] PCP - General 04/22/22 [place] [id number] [place] [id number] Orthopedic Surgery 12/26/13
--- OUTSIDE RECORDS SUMMARY | 2024-06-27 09:22 | XMS_ITS | Referral Summary ---
Author Organization [place] [address] Address [address] [facility] [address] [place] [address] Care Team Providers Care Cloth Printing Utility Worker Name Role Phone Ruth Nayak MD Primary Care Provider Encounters Date Type Department Care Team Description 06/27/2024 8:00 AM SMOOTH STUCCO RESURFACER Office Visit [facility] Cardiology [address] [place] [address] [address] [place] [address] Dariela Moore NP [facility] current use of amiodarone (Primary Dx); Coronary artery disease involving [place] coronary artery of [place] heart without angina pectoris 04/18/[address] [place] [address] Shane Paris MD Shortness of Breath; Fatigue; Blurred Vision 04/01/2024 3:00 PM SMOOTH STUCCO RESURFACER Office Visit [address] [place] [address] Shane Paris MD Coronary artery disease involving [place] coronary artery of [place] heart without angina pectoris (Primary Dx) from Last 3 Months Allergies Active Allergy Reactions Criticality Noted Date [...] mg SL tabletIndicatio ns:Coronary artery disease involving [place] coronary artery of [place] heart without angina pectoris Place 1 tablet [...] fibrillation 03/10/2023 Coronary artery disease invo lving [place] coronary artery of [place] heart without angina pectoris 07/14/2017 Social History Tobacco Use Types Packs/Day Years Used Date Smoking Tobacco: Former Smokeless Tobacco: Never Tobacco Cessation:Counseling Given: Not Answered Alcohol Use Standard Drinks/Week Comments Yes 0 (1 standard drink = 0.6 oz pur e alcohol) Sex and Gender Information Value Date Recorded Sex Assigned at Not on file Legal Sex Male 12:19 PM SMOOTH STUCCO RESURFACER Gender Identity Not on file Sexual Orientation Not on file Last Filed Vital Signs Vital Sign Reading Time Taken Comments Blood Pressure 120/64 06/27/2024 7:59 AM SMOOTH STUCCO RESURFACER Pulse 52 06/27/2024 7:59 AM SMOOTH STUCCO RESURFACER Temperature 36.9 C (98.4 F) 04/14/2017 8:27 AM SMOOTH STUCCO RESURFACER Respiratory Rate - - Oxygen Saturation 99% 06/27/2024 7:59 AM SMOOTH STUCCO RESURFACER Inhaled Oxygen Concentration - - Weight 87.5 kg (193 lb) 06/27/2024 7:59 AM SMOOTH STUCCO RESURFACER Height 177.8 cm (5' 10 ) 06/27/2024 7:59 AM SMOOTH STUCCO RESURFACER Body Mass Index 27.69 06/27/2024 7:59 AM SMOOTH STUCCO RESURFACER Plan of Treatment Not on file Insurance [address] [place] [id number] MEDICARE MEDICARE [facility] MEDICARE SUPPLEMENT Care Teams Cloth Printing Utility Worker Relationship Specialty Start Date End Date Ruth Nayak MD [address] [place] [id number] PCP - General Family Medicine 03/10/23
--- OUTSIDE RECORDS SUMMARY | 2024-06-27 09:22 | XMS_ITS | Encounter Summary ---
Author Organization [facility] Address [address] [place] [address] Care Team Providers Care Compliance Representative Dealer Name Role Phone Ruth Nayak MD Primary Care Provider Reason for Referral * Cardiology (Routine) - Authorized Specialty Diagnoses / Procedures Referred By Contac t Referred To Contact Diagnoses Coronary artery disease involving de[place] coronary artery of de[place] heart without angina pectoris Procedures Transthoracic Echo (TTE) Complete W Doppler/CF Dariela Moore NP [address] [address] Phone: tel: fax: Referral ID Status Reason Start Date Expiration Date V isits Requested Visits Authorized [id number] Authorized 06/27/2024 07/27/2025 1 1 ATION COUNSELOR Reason for Visit * Reason Comments Follow-up Encounter Details Date Type Department Care Team (Late st Contact Info) Description 06/27/2024 8:00 AM EDUCATION COUNSELOR Office Visit [facility] [address] [place] [phone] Dariela Moore NP [address] [address] joint terminal attack controller current use of amiodarone (Primary Dx); Coronary artery disease involving [place] coronary artery of de[place] heart without angina pectoris Social History Tobacco Use Types Packs/Day Years Used Date Smoking Tobacco: Former Smokeless Tobacco: Never Alcohol Use Standard Drinks/Week Comments Yes 0 (1 standard drink = 0.6 oz pur e alcohol) Sex and Gender Information Value Date Recorded Sex Assigned at Not on file Legal Sex Male 12:19 PM EDUCATION COUNSELOR Gender Identity Not on file Sexual Orientation Not on file documented as of this encounter Last Filed Vital Signs Vital Sign Reading Time Taken Comments Blood Pressure 120/64 06/27/2024 7:59 AM EDUCATION COUNSELOR Pulse 52 06/27/2024 7:59 AM EDUCATION COUNSELOR Temperature - - Respiratory Rate - - Oxygen Saturation 99% 06/27/2024 7:59 AM EDUCATION COUNSELOR Inhaled Oxygen Concentration - - Weight 87.5 kg (193 lb) 06/27/2024 7:59 AM EDUCATION COUNSELOR Height 177.8 cm (5' 10 ) 06/27/2024 7:59 AM EDUCATION COUNSELOR Body Mass Index 27.69 06/27/2024 7:59 AM EDUCATION COUNSELOR documented in this encounter Ordered Prescriptions Prescription Sig Dispense Quantity Refills Last Filled Start Date End Date nitroglycerin (NITROSTAT) 0.4 mg SL tabletIndications: Coronary artery disease involving [place] coronary artery of deering heart without angina pectoris Place 1 tablet (0.4 mg total) under the tongue every 5 (five) minutes as needed for chest pain (May repeat q 5 minutes up to 3 doses in 15 minutes) 25 tablet 3 06/27/2024 documented in this encounter Progress Notes * Dariela Moore NP - 06/27/2024 8:00 AM CST Images from the original note were not included. [facility] [address] [place] [address] Date of Visit: 06/27/2024 Patient ID: Jeronimo Guallpa [id number] Chief Complaint Patient presents with Follow-up Jeronimo Guallpa is a 88 y.o. male who is an established patient of Dr. Paris with a history of CAD and PAF coming to the office for complaint of MAYEN. History of Present Illness: Jeronimo Guallpa is a 88 y.o. male who presents for follow up of coronary artery disease. This is a gentleman who is been followed since 2005 at which time he was found to have total occlusion of his LAD with collateral filling. With this anatomy he has been remarkably asymptomatic and doing very well. If he exerts to a high level such as carrying loads of wood into his house he is totally asymptomatic . In 2019 the patient did have some complaints of some increasing exertional dyspnea which led to a follow-up catheterization. He was found to have his chronically occluded LAD which is collateralized and no other disease. Ongoing medical therapy of this was recommended. The patient was seen in the office in January of 2023 complaining of a 7-10 day history of shortness of breath with normalhousehold activities. When he was in the office it was obvious that he had developed atrial fibrillation. His AFib was of uncertain chronicity. He was anticoagulated and started on amiodarone. Subsequently he was brought into [facility] as an outpatient and electrically cardioverted to sinus rhythm. 04/01/[address] Paris: He presents today for six-month appointment. He has no cardiovascular complaints or concerns there are no symptoms or signs of recurrence of atrial fibrillation. He wanted to talk at some length about his amiodarone as he saw his lead application architect recently and told him that he had some findings on his exam that suggested problem with his amiodarone. He has not really noticed any trouble with his visual acuity as it comes to performing daily activities. 06/27/2024 office visit with TAILINGS DAM PUMPER: A little over 2 months ago he began noticing dyspnea on exertion when he goes up the stairs or around quickly. He stops and takes some deep breaths and it helps. Lastweek he had an episode of an aching pain on the left side of the chest that occurred in the eveningwhen he was not doing any particular activity. It lasted about 30-40 minutes. When he woke up in the morning he still had an aching sensation on the left side of the chest. He does have intermittent episodes of blurry vision lasting less than a minute it correlates with moving quickly or turning the head, sometimes some light dizziness turning the head. Overall he is more tired since his activitybecame limited after surgery on his low back in late January. He denies edema, orthopnea, PND, syncope or near-syncope. He denies any bleeding problems. 12-lead ECG performed in the office today was independently interpreted by me and showed sinus rhythm, first-degree AVB, RAD, QTC 497 MS, rate 55 beats per minute Medical History: Past Medical History: Diagnosis Date CAD (coronary artery disease) Past Surgical History: Procedure Laterality Date CARDIOVERSION Social History Tobacco Use Smoking Status Former Smokeless Tobacco Never Social History Tobacco Use Smoking status: Former Smokeless tobacco: Never Substance and Sexual Activity Drug use: None Sexual activity: None Alcohol Use: Not on file No family history on file. Review of Systems Constitutional: Positive for malaise/fatigue. Negative for weight gain and weight loss. Eyes: Positive for blurred vision. Negative for double vision. Cardiovascular: Positive for chest pain and dyspnea on exertion. Negative for leg swelling, near-syncope, orthopnea, palpitations, paroxysmal nocturnal dyspnea and syncope. Respiratory: Negative for cough and sleep disturbances due to breathing. Hematologic/Lymphatic: Negative for bleeding problem. Does not bruise/bleed easily. Vital Signs: BP 120/64 (BP Location: Left arm, Patient Position: Sitting) Pulse 52 Ht 177.8 cm (5' 10 ) Wt87.5 kg (193 lb) SpO2 99% BMI 27.69 kg/m?? Physical Exam Constitutional: General: He is not in acute distress. Appearance: He is well-developed. HENT: Head: Normocephalic and atraumatic. Eyes: General: No scleral icterus. Conjunctiva/sclera: Conjunctivae normal. Neck: Vascular: No JVD. Trachea: No tracheal deviation. Cardiovascular: Rate and Rhythm: Regular rhythm. Bradycardia present. Heart sounds: Normal heart sounds. No murmur heard. Pulmonary: Effort: Pulmonary effort is normal. No respiratory distress. Breath sounds: Normal breath sounds. Musculoskeletal: Right lower leg: No edema. Left lower leg: Edema (trace) present. Skin: General: Skin is warm and dry. Neurological: Mental Status: He is alert and oriented to person, place, and time. Psychiatric: Mood and Affect: Mood normal. Behavior: Behavior normal. Allergies Allergen Reactions Clopidogrel Rash and Unknown Current Outpatient Medications: amiodarone (PACERONE) 200 mg tablet, Take 1 tablet (200 mg total) by mouth daily, Disp: 90 tablet, Rfl: 3 apixaban (Eliquis) 5 mg tablet, Take 1 tablet (5 mg total) by mouth 2 (two) times a day, Disp: 180 tablet, Rfl: 3 aspirin 81 mg enteric coated tablet, Take 1 tablet (81 mg total) by mouth daily, Disp: , Rfl: glucosamine HCl 1,500 mg tablet, take 2 times daily, Disp: 0, Rfl: 0 multivitamin (MULTIPLE VITAMINS) tablet tablet, take 1 by Oral route once, Disp: 0, Rfl: 0 nitroglycerin (NITROSTAT) 0.4 mg SL tablet, Place 1 tablet (0.4 mg total) under the tongue every 5 (five) minutes as needed for chest pain (May repeat q 5 minutes up to 3 doses in 15 minutes), Disp: 25 tablet, Rfl: 3 rosuvastatin (CRESTOR) 10 mg tablet, take 1 tablet by oral route every day, Disp: 0, Rfl: 0 valsartan-hydrochlorothiazide (DIOVAN-HCT) 320-12.5 mg per tablet, take 1 tablet by oral route every day, Disp: 0, Rfl: 0 No results found for: POTASSIUM , BUNSER , CREATININE , EGFR , CHOL , TRIG , LDL , LDLCALC , HDL No results found for: WBC , HGB , HCT , MCV , PLT No results found for this or any previous visit (from the past 4 hours). No results found for: POCCHOL , POCHDL , POCTRIG , POCLDL , POCNONHDL , POCCHLPL Assessment: There are no diagnoses linked to this encounter. Plan/Recommendations: He has a new dyspnea on exertion over the last couple of months. But he does not appear to be endorsing any other signs/symptoms of CHF. He is on long-term amiodarone therapy in therefore I will check for toxicity. Get a chest x-ray, TSH and CMP. Because of his long-term Eliquis use check a CBC to rule out anemia. To assess for a new LV dysfunction or valvular regurgitation, get a new echocardiogram. He had 1 episode of nonexertional aching on the left side of the chest which does not sound highly concerning for angina. However I will renew his sublingual nitroglycerin and I reviewed with him theappropriate way to use this. I will follow up with him over the phone when the test results are available and also update Dr. Paris on his symptoms, and adjust his follow-up accordingly. Patient and daughter verbalized understanding and agreed. 06/27/2024 RAJNI Shaw- Nurse Practitioner with [facility] Cardiology This note is dictated and transcribed using [employer] Direct Software. Clinical Research Scientist variancesmay occur. Despite proofreading, typographical errors may occur. ATION COUNSELOR documented in this encounter Plan of Treatment Scheduled Orders Name Type Priority Associated Diagnoses Order Schedule Transthoracic Echo (TTE) Complete W Doppler/CF Echocardiography Routine Coronary artery disease involving [place] coronary artery of deering heart without angina pectoris Expected: 07/04/2024 (Approximate), Expires: 09/24/2025 XR Chest Pa Lateral 2 Views Imaging Routine [facility] current use of amiodarone Expected: 06/27/2024 (Approximate), Expires: 09/24/2024 Comprehensive metabolic panel Lab Routine joint terminal attack controller current use of amiodarone Expected: 06/27/2024, Expires: 06/27/2025 CBC with auto differential Lab Routine joint terminal attack controller current use of amiodarone Expected: 07/04/2024, Expires: 06/27/2025 Thyroid Function [place] [facility] Routine joint terminal attack controller current use of amiodarone Expected: 07/04/2024 (Approximate), Expires: 06/27/2025 documented as of this encounter Visit Diagnoses Diagnosis joint terminal attack controller current use of amiodarone- Primary Coronary artery disease involving [place] coronary artery of de[place] heart without angina pectoris documented in this encounter Discontinued Medications Medication Sig Discontinue Reason Start Date End Da te nitroglycerin (NITROSTAT) 0.[address] 1 tablet (0.4 mg total) under the tongue every 5 (five) minutes as needed for chest pain (May repeat q 5 minutes up to 3 doses in 15 minutes) Reorder 02/18/2023 06/27/2024 documented as of this encounter Care Teams Compliance Representative Dealer Relationship Specialty Start Date End Date Ruth Nayak MD [address] [place] [id number] PCP - General Family Medicine 03/10/23 documented as of this encounter
--- OUTSIDE RECORDS SUMMARY | 2024-06-27 09:22 | XMS_ITS | Clinical Summary ---
Author Organization [facility] Address [address] [place] [address] Phone Care Team Providers Care Take Off Worker Name Role Phone Rashard Herrera MD Primary Care Provider [phone] Allergies Active Allergy Reactions Criticality Noted Date Comments Clopidogrel Unknown 11/04/2016 Medications polyethylene glycol (MIRALAX) Powder Use entire 255g bottle with 64oz of clear liquid as directed for colonoscopy prep. 255 g 0 7 Active valsartan-hydro CHLOROthiazide (DIOVAN-HCT) 320-12.5 MG Tablet Take 1 Tab by mouth daily. Active aspirin 325 MG Tablet Take 325 mg by mouth Every other day. Active rosuvastatin (CRESTOR) 10 MG Tablet Take 10 mg by mouth daily. Active Family History Medical History Relation Name Comments Bladder cancer Father Relation Name Status Comments Father Social History Tobacco Use Types Packs/Day Years Used Date Smoking Tobacco: Former Pipe Cigars Smokeless Tobacco: Never Alcohol Use Standard Drinks/Week Comments Yes 3 (1 standard drink = 0.6 oz pur e alcohol) Sex and Gender Information Value Date Recorded Sex Assigned at Not on file Legal Sex Male 8:56 PM CDT Gender Identity Not on file Sexual Orientation Not on file Plan of Treatment Health Maintenance Due Date Last Done Comments Hepatitis C Virus (HCV) Screening 1935 TdaP Immunization 1935 Pneumococcal Immunization (5 0+ years) (1 of 1 - PCV) 1986 Zoster Immunization (1 of 2) 1986 Respiratory Syncytial Virus (RSV) Immunization (Adult) (1 - 1-dose 75+ series) 12/01/2011 Influenza Immunization (#1) 2024 SARS-COV-2 Immunization (2023- season) 2024 Hepatitis B Immunization Aged Out No longer eligible based on patient's age to complete this topic Meningococcal Immunization (ACWY) Aged Out No longer eligible based on patient's age to complete this topic Rotavirus Immunization Aged Out No lo nger eligible based on patient's age to complete this topic Insurance MEDICARE [facility] Care Teams Take Off Worker Relationship Specialty Start Date End Date Rashard Herrera MD [address] [place], [place] [id number] PCP - General Internal Medicine 06/23/16
--- OUTSIDE RECORDS SUMMARY | 2024-06-27 09:22 | XMS_ITS | Encounter Summary ---
Author Organization [facility] Care Team Providers Care Nurse Midwife Name Role Phone Rashard Herrera MD Primary Care Provider [phone] Adi Malave DO Primary Care Provider [phone] Gagan Schilling MD Primary Care Provider Ruth Nayak MD Primary Care Provider Encounter Details Date Type Department Care Team (Latest Contact Info) Description 04/14/2017 Orders Only [facility] CLINCONV ProviderLinda MD [address] [place] [address] Social History Tobacco Use Types Packs/Day Years Used Date Smoking Tobacco: Former Alcohol Use Standard Drinks/Week Comments Yes 0 (1 standard drink = 0.6 oz pur e alcohol) Sex and Gender Information Value Date Recorded Sex Assigned at Not on file Legal Sex Male 12:19 PM ASSEMBLY RIVETER Gender Identity Not on file Sexual Orientation Not on file documented as of this encounter Plan of Treatment Not on file documented as of this encounter Procedures Procedure Name Priority Date/Time Associated Diagnosis Comments SCAN - PATHOLOGY 04/16/2017 12:0 0 AM ASSEMBLY RIVETER PROCEDURE - RESULT 03/27/2017 12 :00 AM ASSEMBLY RIVETER documented in this encounter Results * SCAN - PATHOLOGY (04/16/2017 12:00 AM ASSEMBLY RIVETER) Narrative 04/16/2017 12:00 AM ASSEMBLY RIVETER Ordered by an unspecified provider. Historical Provider Final Res ult * PROCEDURE - RESULT (03/27/2017 12:00 AM ASSEMBLY RIVETER) Narrative 03/27/2017 12:00 AM ASSEMBLY RIVETER Ordered by an unspecified provider. us Historical Provider Final Res ult documented in this encounter Visit Diagnoses Not on filedocumented in this encounter Care Teams Nurse Midwife Relationship Specialty Start Date End Date Rashard Herrera MD [address] [place] [address] PCP - General 11/14/13 07/04/19 Adi Malave DO [address] [place] [address] PCP - General Internal Medicine 07/05/19 05/28/22 Gagan Schilling MD [address] [place] [address] PCP - General Family Medicine 05/29/22 03/09/23 Ruth Nayak MD [address] [place] [address] PCP - General Family Medicine 03/10/23 documented as of this encounter
[2024-06-27 09:36] LABS: Basophils Absolute Auto 0.1 K/mm3 (0.0-0.1); Basophils Percent Auto 1.1 % (0.2-1.2); Eosinophils Absolute Auto 0.2 K/mm3 (0-0.3); Eosinophils Percent Auto 3.2 % (0-4.4); Hematocrit 35.6 % (42.0-52.0); Hemoglobin 11.7 g/dL (14.0-18.0); Immature Granulocyte Absolute 0.01 K/mm3 (0.00-0.031); Immature Granulocyte Percent A 0.2 % (0-0.5); Lymphocytes Absolute Auto 1.46 K/mm3 (0.9-3.2); Lymphocytes Percent Auto 31.6 % (18.3-44.2); Mean Corpuscular HGB Conc 32.9 g/dl (32-36); Mean Corpuscular Hemoglobin 35.3 pg (26-34); Mean Corpuscular Volume 107.6 fl (80-100); Mean Platelet Volume 10.5 fl (7.4-10.4); Monocytes Absolute Auto 0.4 K/mm3 (0.1-0.6); Monocytes Percent Auto 9.3 % (2.6-8.5); Neutrophils Absolute Auto 2.5 K/mm3 (1.3-6.7); Neutrophils Percent Auto 54.6 % (45.5-73.1); Platelet Count Result 129 k/mm3 (150-375); Red Blood Count 3.31 M/mm3 (4.6-6.20); Red Cell Distribution Width 15.1 % (11.5-14.5); White Blood Count 4.6 K/mm3 (4.5-10.0)
[2024-06-27 09:49] LABS: Alanine Aminotransferase 24 U/L (6-50); Albumin Level 3.9 g/dL (3.5-5.1); Alkaline Phosphatase 101 U/L (38-126); Anion Gap 9 mmol/L (4-12); Aspartate Amino Transferase 39 U/L (17-59); Bilirubin,Total 1.1 mg/dL (0.2-1.3); Blood Urea Nitrogen 37 mg/dL (9-20); Calcium 9.3 mg/dL (8.4-10.2); Carbon Dioxide 26 mmol/L (22-30); Chloride 107 mmol/L (98-107); Estimated Glomerular Filt Rate 40; Glucose 101 mg/dL (65-110); Potassium 4.5 mmol/L (3.4-5.0); Sodium 142 mmol/L (137-145)
[2024-06-27 10:36] LABS: Platelet Estimate Slightly Decreased (Adequate); Schistocytes None Seen
[2024-06-27 10:38] LABS: Macrocytosis 1+ (NORMAL)
[2024-06-27 10:39] LABS: Atypical Lymphocytes Present
== END 2024-06-27 08:59 | disposition home or self-care (01) ==
PROVIDERS: PCP Family Medicine; Visit Provider Nurse Practitioner Adult Health
DX: J84.9 Interstitial pulmonary disease, unspecified (principal); I51.7 Cardiomegaly; Z79.899 Other long term (current) drug therapy
CPT/HCPCS: 36415; 71046; 80053; 84443; 85025

== ENCOUNTER 2024-07-14 10:51 | Outpatient (CLI) | payer MEDICARE, SELFPAY | END 2024-07-14 10:52 | disposition home or self-care (01) | PROVIDERS: PCP Family Medicine; Visit Provider Nurse Practitioner Adult Health | DX: J84.9 Interstitial pulmonary disease, unspecified (principal); J90 Pleural effusion, not elsewhere classified; I51.7 Cardiomegaly; I71.21 Aneurysm of the ascending aorta, without rupture; N20.0 Calculus of kidney; K80.20 Calculus of gallbladder without cholecystitis without obstruction | CPT/HCPCS: 71250 ==

== ENCOUNTER 2025-01-06 13:09 | Outpatient (CLI) | payer MEDICARE, SELFPAY ==
--- NOTE | ~2025-01-06 | CT_ITS ---
EXAMINATION: CT diagnostic chest wo con DATE: 01/06/2025 13:31 INDICATION: Aneurysm of the ascending aorta. TECHNIQUE: Computed tomography (CT) of the chest was performed without intravenous contrast. The dose-length product was 266.64 mGy-cm. Automated exposure control and iterative reconstruction technique were employed. COMPARISON: CT dated 07/14/2024 FINDINGS: Cardiomegaly. No significant pleural or pericardial effusion. Gallstones. No thoracic lymphadenopathy. Mild chronic interstitial lung disease. 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 No significant interval change. Thyroid gland unremarkable. No focal airspace c onsolidation. Calcified granuloma left upper lobe. IMPRESSION: 1. 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 2: Stable mild chronic interstitial lung disease. 3: Cholelithiasis. Reviewed, dictated and finalized at location O.
== END 2025-01-06 13:10 | disposition home or self-care (01) ==
LOC: MICIMG 13:13
PROVIDERS: PCP Family Medicine; Visit Provider Nurse Practitioner Adult Health
DX: I71.21 Aneurysm of the ascending aorta, without rupture (principal); K80.20 Calculus of gallbladder without cholecystitis without obstruction; J84.9 Interstitial pulmonary disease, unspecified
CPT/HCPCS: 71250

== ENCOUNTER 2025-03-21 12:01 | Inpatient (IN) | payer MEDICARE, SELFPAY ==
--- NOTE | ~2025-03-21 | XR_ITS ---
XR chest 2V 03/21/2025 14:30 Indication: Shortness of breath and weakness Procedure: 2 view chest Comparison: 06/27/2024 Findings: Cardiomegaly. Right basilar airspace disease which may represent atelectasis or pneumonia. Small right pleural effusion. No edema or pneumothorax. Impression: 1: Right basilar infiltrate may represent atelectasis or pneumonia. 2: Small right pleural effusion. 3: Cardiomegaly. Reviewed, dictated and finalized at location A. WORKER Impression: 1: Right basilar infiltrate may represent atelectasis or pneumonia. 2: Small right pleural effusion. 3: Cardiomegaly.
[2025-03-21 12:04] VITALS: BP 119/83; PULSE 67; RESP 22; TEMP 36.3; O2SAT 99
--- NOTE | 2025-03-21 12:04 | ECG_ITS ---
Test Date: 2025-03-21 12:11:44 Measurements Intervals [place] Rate: 107 P: 0 [place]: 0 QRS: 231 QRSD: 107 T: 65 QT: 379 QTc: 506 Interpretive Statements ATRIAL FIBRILLATION WITH RAPID VENTRICULAR RESPONSE INCOMPLETE RIGHT BUNDLE BRANCH BLOCK [90+ ms QRS DURATION, TERMINAL R IN V1/V2, 40+ ms S IN I/aVL/V4/V5/V6] RIGHT VENTRICULAR HYPERTROPHY [SOME/ALL OF: PROMINENT R IN V1, LATE TRANSITION, RAD, YAZMIN, SSS] No previous ECG available for comparison Electronically Signed On 03-21-2025 21:21:50 HTML WEB DEVELOPER by Matt Bhardwaj M.D.
--- NOTE | 2025-03-21 13:53 | ED_ITS ---
HPI - Arrhythmia/Palpitations General Chief Complaint: Arrhythmia/Palpitations <Janette Funes PA-C - Last Filed: 03/21/25 15:05> Stated Complaint: im having afib <BESS Hatfield Last Filed: 03/21/25 15:05> Time Seen by Provider: 03/21/25 13:53 <BESS Hatfield Last Filed: 03/21/25 15:05> Focused HPI: Patient is an 89 y/o male who presents to the ED with c/o abnormal EKG. Patient reports he has been having increased SOB, worse with exertion, over the past 3 weeks. Went to see his PCP today. Had an EKG performed in the office, showing AFIB and prolonged QTC. Sent to the ED for further evaluation. Has Hx of AFIB, on eliquis. Did have cardioversion in the past. Sees Dr. Paris. Reports fatigue with exertion, intermittent dizziness. Denies CP. Has had some swelling in BLE. GENERAL: Well-appearing, well-nourished, and in no acute distress. HEAD: Normocephalic, atraumatic. CHEST: Clear to auscultation. ?No respiratory distress. HEART: Regular rate and irregular rhythm.?Trace pitting edema BLE NEURO: ?Alert and oriented x3. Patient screened in triage and initial orders placed.? ?Additional care and disposition to be based upon?diagnostic testing and treatment. <Janette Funes PA-C - Last Filed: 03/21/25 15:05> Source: patient <Janette Funes PA-C - Last Filed: 03/21/25 15:05> Mode of arrival: ambulatory <BESS Hatfield Last Filed: 03/21/25 15:05> Limitations: no limitations <BESS Hatfield Last Filed: 03/21/25 15:05> History of Present Illness HPI narrative: agree with HPI <Yisel Trejo MD - Last Filed: 03/21/25 16:55> Related Data Home Medications: Home Medications ?Medication ?Instructions ?Recorded ?Confirmed ?Last Taken ?Type glucosamine HCl 1,500 mg tablet 1,500 mg PO DAILY 10/0411/10/24 03/19/23 21:00 History multivitamin 1 tablet PO DAILY 07/21/19 0 11/10/24 03/19/23 21:00 History amiodarone 200 mg tablet 200 mg PO DAILY 03/19/2303/19/23 History 1200 apixaban 5 mg tablet (Eliquis) 5 mg PO BID 03/19/2303/20/23 History nitroglycerin 0.4 mg sublingual See Rx Instructions .R oute 03/20/23 11/10/24 Unknown History tablet .COMPLEX PRN Chest Pain <Janette Funes PA-C - Last Filed: 03/21/25 15:05> Allergies/Adverse Reactions: Allergies Allergy/AdvReac Type Severity Reaction Status Date / Time clopidogrel Allergy Intermediate Red Rash Verified 03/21/25 15:56 <Janette Funes PA-C - Last Filed: 03/21/25 15:05> Review of Systems 2 Review of Systems: All systems reviewed & are unremarkable except as noted in HPI and below <Yisel Trejo MD - Last Filed: 03/21/25 16:55> [facility] Past Medical History Medical History: Medical History CAD (coronary artery disease) Chronic GERD Abnormal cystoscopy Chronic back pain Degenerative disc disease COVID-19 LUQ abdominal pain Epididymal mass Kidney stones ASHD (arteriosclerotic heart disease) Chronic kidney disease, stage 3 Essential hypertension History of kidney stones Medication monitoring encounter Mixed hyperlipidemia <Janette Funes PA-C - Last Filed: 03/21/25 15:05> Surgical History Surgical History: Surgical History History of tonsillectomy History of carpal tunnel surgery H/O cardiac catheterization Cataract extraction status History of appendectomy History of total bilateral knee replacement <Janette Funes PA-C - Last Filed: 03/21/25 15:05> Family History Family History: Family History Father Family history of cardiovascular disease, Onset Age: 79 Family history of malignant neoplasm, Onset Age: 79 Family history of heart disease in male family member before age 55 Heart attack Other Family history of arthritis Hypertension <Janette Funes PA-C - Last Filed: 03/21/25 15:05> Social History Social History: Social History Social History: The patient lives at home with his . He is retired from [employer]. They have 2 children. He is a social drinker. He is a former smoker. His is the durable power privacy attorney for healthcare. Code status full code Smoking status: Former smoker Tobacco type: pipe and cigars Second hand tobacco smoke exposure: No Smoking end date: 09/15/1960 Alcohol intake: current Drinks per week: 1 Alcohol use details: beer whiskey Substance use: never Substance use type: does not use Lack of Transportation: No Lack of Food: Never True Current Housing: I Have Housing Concerned About Future Housing: No Difficulty Paying Gas/Electric Bills: No Difficulty Paying for Meds: No Currently Unemployed: No Education: High School Diploma/GED Difficulty w/ Childcare or Family Care: No Living arrangements: with family Gender identity (if verbalized by the patient): Male Sexual Orientation (if Verbalized by the Patient): Straight or Heterosexual Spiritual care concerns: No <Janette Funes PA-C - Last Filed: 03/21/25 15:05> Exam 2 Narrative: EXAMINATION OF ORGAN SYSTEMS/BODY AREAS: Constitutional: Vital signs per nursing GENERAL:[No acute distress, non-toxic appearing.] HEAD: Normal with no signs of head trauma. EYES: EOMI, conjunctiva normal ENT: Hearing grossly intact LUNGS: Nonlabored breathing. HEART: Irregularly irregular ABD: [Soft], [nontender to palpation] EXT: Normal range of motion; some slight swelling bilateral lower extremities SKIN: [No rashes or lesions.] NEURO: [Alert and oriented x 3. No gross focal sensory or strength deficits.] PSYCH: Normal affect <Yisel Trejo MD - Last Filed: 03/21/25 16:55> Course Vital Signs Vital signs: Vital Signs Temperature 97.4 F L 03/21/25 12:04 Pulse Rate 67 03/21/25 12:04 Respiratory Rate 22 H 03/21/25 12:04 Blood Pressure 119/83 03/21/25 12:04 Pulse Oximetry 99 03/21/25 12:04 Oxygen Delivery Room Air 03/21/25 12:04 Temperature 97.4 F L 03/21/25 12:04 Pulse Rate 91 03/21/25 15:16 Respiratory Rate 18 03/21/25 15:16 Blood Pressure 103/65 03/21/25 15:16 Pulse Oximetry 100 03/21/25 15:16 Oxygen Delivery Room Air 03/21/25 12:04 <Janette Funes PA-C - Last Filed: 03/21/25 15:05> Vital Signs Temperature 97.4 F L 03/21/25 12:04 Pulse Rate 67 03/21/25 12:04 Respiratory Rate 22 H 03/21/25 12:04 Blood Pressure 119/83 03/21/25 12:04 Pulse Oximetry 99 03/21/25 12:04 Oxygen Delivery Room Air 03/21/25 12:04 Temperature 97.4 F L 03/21/25 12:04 Pulse Rate 91 03/21/25 15:16 Respiratory Rate 18 03/21/25 15:16 Blood Pressure 103/65 03/21/25 15:16 Pulse Oximetry 100 03/21/25 15:16 Oxygen Delivery Room Air 03/21/25 12:04 <Yisel Trejo MD - Last Filed: 03/21/25 16:55> MDM - Arrhythmia/Palpitations MDM Narrative Medical decision making narrative: MSE by JANICE in triage. <Janette Funes PA-C - Last Filed: 03/21/25 15:05> MSE by JANICE in triage. Patient with history of AFib the had been cardioverted, now on blood thinners, presents here with increasing shortness of breath for the last few weeks, sent here from doctor's office found to be in AFib. Denies any chest pain, though he does have some increased swelling to bilateral lower extremities Troponin is elevated however this does appear to be possibly chronic, and BNP quite elevated, chest x-ray with some is a 6 findings of possible fluid overload. Given symptoms I will start her on Lasix, discussed case with lithograph press operator tinware on-call, did not recommend heparin drip at this time since he has no chest pain, okay to start aspirin, discussed with hospitalist for admission. Patient and agreeable to plan <Yisel Trejo MD - Last Filed: 03/21/25 16:55> Lab Data Result diagrams: 03/21/25 14:36 03/21/25 14:36 <Janette Funes PA-C - Last Filed: 03/21/25 15:05> Labs: Lab Results 03/21/25 03/21/25 Range/Units 14:36 14:36 WBC 5.1 (4.5-10.0) K/mm3 RBC 3.68 L (4.6-6.20) M/mm3 Hgb 12.8 L (14.0-18.0) g/dL Hct 39.3 L (42.0-52.0) % MCV 106.8 H (80-100) fl MCH 34.8 H (26-34) pg MCHC 32.6 (32-36) g/dl RDW 14.8 H (11.5-14.5) % Plt Count 101 L (150-375) k/mm3 MPV 10.9 H (7.4-10.4) fl Immature Gran % (Auto) 0.2 (0-0.5) % Neut % (Auto) 58.4 (45.5-73.1) % Lymph % (Auto) 28.7 (18.3-44.2) % [place] % (Auto) 10.1 H (2.6-8.5) % Eos % (Auto) 1.4 (0-4.4) % Baso % (Auto) 1.2 (0.2-1.2) % Lymph # (Auto) 1.47 (0.9-3.2) K/mm3 [place] # (Auto) 0.5 (0.1-0.6) K/mm3 Eos # (Auto) 0.1 (0-0.3) K/mm3 Baso # (Auto) 0.1 (0.0-0.1) K/mm3 Abs Immat Gran (auto) 0.01 (0.00-0.031) K/mm3 Absolute Neuts (auto) 3.0 (1.3-6.7) K/mm3 Absolute Nucleated RBC 0.000 (0.0-0.012) K/mm3 Band Neutrophils % Not Reportable Nucleated RBC % 0.0 (0.0-0.2) % Platelet Estimate Decreased (Adequate) Macrocytosis Occasional (NORMAL) Ovalocytes 1+ Schistocytes None seen PT 18.5 H (11.1-14.7) Seconds INR 1.5 APTT 36.6 (22.3-36.8) Seconds Sodium 137 (137-145) mmol/L Potassium 4.2 (3.4-5.0) mmol/L Chloride 104 (98-107) mmol/L Carbon Dioxide 24 (22-30) mmol/L Anion Gap 9 (4-12) mmol/L BUN 35 H (9-20) mg/dL Creatinine 1.42 H (0.7-1.3) mg/dL Estim Creat Clear Calc 32 ml/min Estimated GFR 47 L (59 - ) Glucose 93 (65-110) mg/dL Calcium 9.3 (8.4-10.2) mg/dL Magnesium 2.0 Cancelled (1.6-2.3) mg/dL Total Bilirubin 2.5 H (0.2-1.3) mg/dL AST 45 (17-59) U/L ALT 28 (6-50) U/L Alkaline Phosphatase 123 (38-126) U/L Troponin I 0.155 H* (0.000-0.034) ng/mL NT-Pro-B Natriuret Pep 41392 H (19.9-100) pg/mL Total Protein 6.8 (6.3-8.2) g/dL Albumin 4.5 (3.5-5.1) g/dL <Janette Funes PA-C - Last Filed: 03/21/25 15:05> Lab Results 03/21/25 03/21/25 Range/Units 14:36 14:36 WBC 5.1 (4.5-10.0) K/mm3 RBC 3.68 L (4.6-6.20) M/mm3 Hgb 12.8 L (14.0-18.0) g/dL Hct 39.3 L (42.0-52.0) % MCV 106.8 H (80-100) fl MCH 34.8 H (26-34) pg MCHC 32.6 (32-36) g/dl RDW 14.8 H (11.5-14.5) % Plt Count 101 L (150-375) k/mm3 MPV 10.9 H (7.4-10.4) fl Immature Gran % (Auto) 0.2 (0-0.5) % Neut % (Auto) 58.4 (45.5-73.1) % Lymph % (Auto) 28.7 (18.3-44.2) % [place] % (Auto) 10.1 H (2.6-8.5) % Eos % (Auto) 1.4 (0-4.4) % Baso % (Auto) 1.2 (0.2-1.2) % Lymph # (Auto) 1.47 (0.9-3.2) K/mm3 [place] # (Auto) 0.5 (0.1-0.6) K/mm3 Eos # (Auto) 0.1 (0-0.3) K/mm3 Baso # (Auto) 0.1 (0.0-0.1) K/mm3 Abs Immat Gran (auto) 0.01 (0.00-0.031) K/mm3 Absolute Neuts (auto) 3.0 (1.3-6.7) K/mm3 Absolute Nucleated RBC 0.000 (0.0-0.012) K/mm3 Band Neutrophils % Not Reportable Nucleated RBC % 0.0 (0.0-0.2) % Platelet Estimate Decreased (Adequate) Macrocytosis Occasional (NORMAL) Ovalocytes 1+ Schistocytes None seen PT 18.5 H (11.1-14.7) Seconds INR 1.5 APTT 36.6 (22.3-36.8) Seconds Sodium 137 (137-145) mmol/L Potassium 4.2 (3.4-5.0) mmol/L Chloride 104 (98-107) mmol/L Carbon Dioxide 24 (22-30) mmol/L Anion Gap 9 (4-12) mmol/L BUN 35 H (9-20) mg/dL Creatinine 1.42 H (0.7-1.3) mg/dL Estim Creat Clear Calc 32 ml/min Estimated GFR 47 L (59 - ) Glucose 93 (65-110) mg/dL Calcium 9.3 (8.4-10.2) mg/dL Magnesium 2.0 Cancelled (1.6-2.3) mg/dL Total Bilirubin 2.5 H (0.2-1.3) mg/dL AST 45 (17-59) U/L ALT 28 (6-50) U/L Alkaline Phosphatase 123 (38-126) U/L Troponin I 0.155 H* (0.000-0.034) ng/mL NT-Pro-B Natriuret Pep 05651 H (19.9-100) pg/mL Total Protein 6.8 (6.3-8.2) g/dL Albumin 4.5 (3.5-5.1) g/dL <Yisel Trejo MD - Last Filed: 03/21/25 16:55> Discharge Plan Discharge Clinical Impression: A-fib, Acute exacerbation of CHF (congestive heart failure) <Janette Funes PA-C - Last Filed: 03/21/25 15:05> Patient Disposition: Still a Patient <Janette Funes PA-C - Last Filed: 03/21/25 15:05> Condition: Stable <Janette Funes PA-C - Last Filed: 03/21/25 15:05> Patient Language: Turkmen <Janette Funes PA-C - Last Filed: 03/21/25 15:05> Prescriptions: No Action multivitamin Tablet 1 tablet PO DAILY glucosamine HCl 1,500 mg Tablet 1,500 mg PO DAILY Eliquis 5 mg tablet 5 mg PO BID amiodarone 200 mg tablet 200 mg PO DAILY nitroglycerin 0.4 mg tablet, sublingual See Rx Instructions .ROUTE .COMPLEX PRN (Reason: Chest Pain) Rx Instructions: 0.4 mg sublingually every 5 minutes up to 3 doses for chest pain valsartan-hydrochlorothiazide [Diovan HCT] 320-12.5 mg tablet 1 tablet PO DAILY Qty: 90 1RF rosuvastatin [Crestor] 20 mg tablet 10 mg PO DAILY Qty: 45 1RF <Janette Funes PA-C - Last Filed: 03/21/25 15:05> Follow-up/Referrals: Dufner,Ruth Vargas MD [Primary Care Provider, Unknown] <Janette Funes PA-C - Last Filed: 03/21/25 15:05>
--- OUTSIDE RECORDS SUMMARY | 2025-03-21 14:05 | XMS_ITS | Encounter Summary ---
Author Organization [facility] Healthcare Address [address] [place] [address] Care Team Providers Care Texturing Machine Fixer Name Role Phone Ruth Nayak MD Primary Care Provider Encounter Details Date Type Department Care Team (Late st Contact Info) Description 03/21/2025 Telephone [facility] Cardiology [address] [place] [address] Dariela Moore NP [address] [place] [address] Social History Tobacco Use Types Packs/Day Years Used Date Smoking Tobacco: Former Smokeless Tobacco: Never Alcohol Use Standard Drinks/Week Comments Yes 0 (1 standard drink = 0.6 oz pur e alcohol) Sex and Gender Information Value Date Recorded Sex Assigned at Not on file Legal Sex Male 12:19 PM CUSTOMER SERVICE SALES ASSOCIATE Gender Identity Not on file Sexual Orientation Not on file documented as of this encounter Miscellaneous Notes * Telephone Encounter - Jennifer Lainez RN - 03/21/2025 10:18 AM CUSTOMER SERVICE SALES ASSOCIATE Spoke to Dr Nayak, pt is in their office with reports of increased SOB worse with exertion, EKG shows A-Fib with RVR, HR 105, prolonged QTC, Reviewed with CT, pt should be seen in ER for symptomaticA-Fib with RVR. Dr Nayak verbalized understanding. OMER SERVICE SALES ASSOCIATE documented in this encounter Plan of Treatment Not on file documented as of this encounter Visit Diagnoses Not on filedocumented in this encounter Care Teams Texturing Machine Fixer Relationship Specialty Start Date End Date Ruth Nayak MD [address] [place] [id number] PCP - General Family Medicine 03/10/23 documented as of this encounter
--- OUTSIDE RECORDS SUMMARY | 2025-03-21 14:05 | XMS_ITS | Clinical Summary ---
Author Organization [facility] Address [address] [place] [address] Phone Care Team Providers Care Set Up Technician Name Role Phone Rashard Herrera MD Primary Care Provider [phone] Allergies Active Allergy Reactions Criticality Noted Date [...] 1986 Zoster Immunization (1 of 2) 1986 Medicare Initial AWV [id number] 11/15/2002 Respiratory Syncytial Virus (RSV) Immunization (Adult) (1 - 1-dose 75+ series) 12/01/2011 Influenza Immunization (#1) 2025 SARS-COV-2 Immunization (2023- season) 2025 Hepatitis B Immunization Aged Out No longer eligible based on patient's age to complete this topic Human Papillomavirus (HPV) Immunization Aged Out No longer eligible b ased on patient's age to complete this topic Meningococcal Immunization (ACWY) Aged Out No longer eligible based on patient's age to complete this topic Rotavirus Immunization Aged Out No lo nger eligible based on patient's age to complete this topic Insurance MEDICARE [facility] Care Teams Set Up Technician Relationship Specialty Start Date End Date Rashard Herrera MD PCP - General Internal Medicine 06/23/16
--- OUTSIDE RECORDS SUMMARY | 2025-03-21 14:05 | XMS_ITS | Encounter Summary ---
Author Organization [facility] Facility Care Team Providers Care Epitaxial Reactor Technician Name Role Phone Rashard Herrera MD Primary Care Provider [phone] Adi Malave DO Primary Care Provider [phone] Gagan Schilling MD Primary Care Provider Ruth Nayak MD Primary Care Provider Encounter Details Date Type Department Care Team (Latest Contact Info) Description 04/14/2017 Orders Only [facility] ProviderLinda MD [address] [place] [address] Social History Tobacco Use Types Packs/Day Years Used Date Smoking Tobacco: Former Alcohol Use Standard Drinks/Week Comments Yes 0 (1 standard drink = 0.6 oz pur e alcohol) Sex and Gender Information Value Date Recorded Sex Assigned at Not on file Legal Sex Male 12:19 PM TESTER ARMATURE OR FIELDS Gender Identity Not on file Sexual Orientation Not on file documented as of this encounter Plan of Treatment Not on file documented as of this encounter Procedures Procedure Name Priority Date/Time Associated Diagnosis Comments SCAN - PATHOLOGY 04/16/2017 12:0 0 AM TESTER ARMATURE OR FIELDS PROCEDURE - RESULT 03/27/2017 12 :00 AM TESTER ARMATURE OR FIELDS documented in this encounter Results * SCAN - PATHOLOGY (04/16/2017 12:00 AM TESTER ARMATURE OR FIELDS) Narrative 04/16/2017 12:00 AM TESTER ARMATURE OR FIELDS Ordered by an unspecified provider. us Historical Provider Final Res ult * PROCEDURE - RESULT (03/27/2017 12:00 AM TESTER ARMATURE OR FIELDS) Narrative 03/27/2017 12:00 AM TESTER ARMATURE OR FIELDS Ordered by an unspecified provider. us Historical Provider Final Res ult documented in this encounter Visit Diagnoses Not on filedocumented in this encounter Care Teams Epitaxial Reactor Technician Relationship Specialty Start Date End Date Rashard Herrera MD PCP - General 11/14/13 07/04/19 Adi Malave DO PCP - General Internal Medicine 07/05/19 05/28/22 Gagan Schilling MD PCP - General Family Medicine 05/29/22 03/09/23 Ruth Nayak MD [address] [place] [id number] PCP - General Family Medicine 03/10/23 documented as of this encounter
--- OUTSIDE RECORDS SUMMARY | 2025-03-21 14:05 | XMS_ITS | Clinical Summary ---
Author Organization [facility] [address] [address] Address [address] [place] [address] Care Team Providers Care Senior Occupational Therapist Name Role Phone Ruth Nayak MD Primary Care Provider Allergies Active Allergy Reactions Criticality Noted Date Comments Clopidogrel Rash,Unknown Medium 06/23/2012 Medications valsartan-hydro chlorothiazide (DIOVAN-HCT) 320-12.5 mg per tablet take 1 tablet by oral route every day 0 0 4 Active multivitamin (MULTIPLE VITAMINS) tablet tablet take 1 by Oral route once 0 0 4 Active Additional Information Patient not taking.Reported on 08/22/2024 rosuvastatin (CRESTOR) 10 mg tablet take 1 tablet by oral route every day 0 0 4 Active glucosamine HCl 1,500 mg tablet take 2 times daily 0 0 4 Active Additional Information Patient not taking.Reported on 08/22/2024 aspirin 81 mg enteric coated tablet Take 1 tablet (81 mg total) by mouth daily Active apixaban (Eliquis) 5 mg tablet Take 1 tablet (5 mg total) by mouth 2 (two) times a day 180 tablet 3 4 Active nitroglycerin (NITROSTAT) 0.4 mg SL tabletIndicatio ns:Coronary artery disease involving [place] coronary artery of [place] heart without angina pectoris Place 1 tablet (0.4 mg total) under the tongue every 5 (five) minutes as needed for chest pain (May repeat q 5 minutes up to 3 doses in 15 minutes) 25 tablet 3 Active Active Problems Problem Noted Date Diagnosed Date Persistent atrial fibrillation 03/10/2023 Coronary artery disease invo lving [place] coronary artery of [place] heart without angina pectoris 07/14/2017 Encounters Date Type Department Care Team Description 03/21/2025 Telephone [facility] Cardiology [address] [place] [phone] Dariela Moore NP 01/12/2025 Results Follow-Up [facility] Cardiology [address] [place] [phone] Dariela Moore NP SCAN - RADIOLOGY/IMAGING 01/06/2025 Orders Only [facility] [address] [place], [place] [phone] Dariela Moore NP from Last 3 Months Surgical History Surgery [...] on file Legal Sex Male 12:19 PM ENCEPHALOGRAPHER Gender Identity Not on file Sexual Orientation Not on file Last Filed Vital Signs Vital Sign Reading Time Taken Comments Blood Pressure 110/64 10/06/2024 10:42 AM CDT Pulse 58 10/06/2024 10:42 AM CDT Temperature 36.9 C (98.4 F) 04/14/2017 8:27 AM ENCEPHALOGRAPHER Respiratory Rate - - Oxygen Saturation 99% 10/06/2024 10:42 AM CDT Inhaled Oxygen Concentration - - Weight 84 kg (185 lb 3.2 oz) 10/06/2024 10:42 AM CDT Height 177.8 cm (5' 10) 10/06/2024 10:42 AM CDT Body Mass Index 26.57 10/06/2024 10:42 AM CDT Plan of Treatment Health Maintenance Due Date Last Done Comments Depression Screening 1936 Fall Risk Assessment 1936 DTaP/Tdap/Td Vaccine (1 - Tdap) 12/01/1947 Hepatitis B Screening 1954 Pneumococcal vaccine 65+ (1 of 2 - PCV) 12/01/1955 Well Visit 65+ 2001 Zoster Vaccine (2 of 3) 07/30/2018 06/04/2018 Influenza Vaccine (#1) 2025 8, 05/03/2014, 04/27/2013, Additional history exists Procedures Procedure Name Priority Date/Time Associated Diagnosis Comments SCAN - RADIOLOGY/IMAGING 01/06/2025 from Last 3 Months Results * SCAN - RADIOLOGY/IMAGING (01/06/2025) Anatomical Region Laterality Modality Other Dariela Moore NP Final Res ult from Last 3 Months Insurance MEDICARE MEDICARE [facility] MEDICARE SUPPLEMENT Care Teams Senior Occupational Therapist Relationship Specialty Start Date End Date Ruth Nayak MD [address] [place] [id number] PCP - General Family Medicine 03/10/23
--- OUTSIDE RECORDS SUMMARY | 2025-03-21 14:05 | XMS_ITS | Patient Health Record ---
Author Organization [facility] Address [address] [place], [place] [id number] Care Team Providers Care Composing Room Machinist Apprentice Name Role Phone WILDER NESS Unavailable [phone] KAMARI SANTA Unavailable Unavailable AJ NAVA Unavailable [phone] Reason For Referral No Information Social History Social History Additional Details Category Social Info Options Details Migrated Social History Migrated Social History Smoking Status : Former tobacco user , History of tobacco use : Encounters Encounter Location Date Provider Diagnosis [address] [phone] 07/07/2024 WILDER NESS Tinea unguium B35.1 ; Pain in right toe(s) M79.674 ; Pain in left toe(s) M79.675 and Atherosclerosis of [place] arteries of extremities with intermittent claudication, bilateral legs I70.213 Assessments Encounter Date Diagnosis (ICD Code) Assessment Notes Treatment Notes Treatment Clinical Notes Section Notes 07/07/2024 Tinea unguium (ICD-10 - B35.1) FUNGAL TOENAILS: Discussed various treatment options for fungal toenails including debridement, topical antifungals, oral antifungals, toenail avulsion, or toenail matrixectomy. NAIL DEBRIDEMENT: Nails 1-5 Bilateral were debrided extensively with nail nippers and emery board, reducing length and girth to pink healthy tissue with any subungual debris and necrotic tissue removed 07/07/2024 Pain in right toe(s) (ICD-10 - M79.674) 07/07/2024 Pain in left toe(s) (ICD-10 - M79.675) 07/07/2024 Atherosclerosis of [place] arteries of extremities with intermittent claudication, bilateral legs (ICD-10 - I70.213) Plan Of Treatment No Information Insurance Providers Payer Name Payer Address Payer Phone Subscriber Number Group Number Insured Name Patient Relationship to Insured Coverage Start Date Coverage End Date Medicare Part B [place] [address] [place] [phone] [id number] LONG NAIK Self - patient is the insured [facility] ([facility]) ATTN CLAIMS [address] [place] [address] [id number] LONG NAIK Self - patient is the insured
--- OUTSIDE RECORDS SUMMARY | 2025-03-21 14:05 | XMS_ITS | Clinical Summary ---
Author Organization [facility] Address [address] [address] Care Team Providers Care Oyster Buyer Name Role Phone Dragan Pena MD Unavailable [phone] Gagan Schilling MD Primary Care Provider [phone] Source Comments [facility],non-owned Affiliates and Associated Physician Practices is amultiple site organization consisting of ambulatory clinics and hospital sitesin [place], [place], [place] and [place]. This disclosure is being madepursuant to the Care Everywhere program and may not contain all information available regarding this patient. Last updated 18.[facility] Allergies Active Allergy Reactions Criticality Noted Date Comments Clopidogrel Rash Medium 06/23/2012 Medications * Be aware that medications may not be up to date on this document. Alwaysverify current medications with the patient. rosuvastatin (CRESTOR) 10 MG tablet Take 1 (one) tablet by mouth once daily Active valsartan-hydr ochlorothiazid e (DIOVAN HCT) 320-12.5 MG tablet Take 1 (one) tablet by mouth once daily Instructed to take AM of surgery Active Glucosamine-Ch ondroit-Vit C-Mn (GLUCOSAMINE CHONDR 500 COMPLEX PO) Take by mouth once daily. Active multivitamin daily (THERAGRAN) tablet Take 1 (one) tablet by mouth daily with food Active budesonide-for moterol (SYMBICORT) 160-4.5 MCG/ACT inhaler Inhale 2 (two) puffs by mouth as needed Active ALPRAZolam (XANAX) 0.5 MG tablet Take 1 (one) tablet by mouth 3 times daily as needed Active famotidine (PEPCID) 20 MG tablet Take 1 (one) tablet by mouth once daily Instructed to take AM of surgery Active acetaminophen (TYLENOL) 325 MG tablet Take 2 Tabs by mouth every 4 hours as needed. Maximum allowable Acetaminophen amount = 4 Grams (4000 mg) / 24 hours. 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 Gender Identity Not on file Sexual Orientation Not on file Last Filed Vital Signs Vital Sign Reading Time Taken Comments Blood Pressure 105/61 12/08/2013 8:39 AM CDT Pulse 73 12/08/2013 8:39 AM CDT Temperature 37.5 C (99.5 F) 12/08/2013 8:39 AM CDT Respiratory Rate 18 12/08/2013 8:39 AM CDT Oxygen Saturation 97% 12/08/2013 9:39 AM CDT Inhaled Oxygen Concentration - - Weight 82.1 kg (181 lb) 08/05/2024 11:02 AM CDT Height 177.8 cm (5' 10) 08/05/2024 11:02 AM CDT Body Mass Index 25.97 08/05/2024 11:02 AM CDT Plan of Treatment Health Maintenance Due Date Last Done Comments MEDICARE AWV 12 MONTHS 1936 DTAP/TDAP/TD VACCINES (1 - Tdap) 12/01/1955 PNEUMOCOCCAL VACCINE 50+ (1 of 1 - PCV) 1986 ZOSTER VACCINE (1 of 2) 1986 Respiratory Syncytial Virus (RSV) Vaccine Pt: or over 60 yrs (1 - 1-dose 75+ series) 12/01/2011 DEPRESSION SCREENING 05/18/2024 COVID-19 VACCINE (1 - 2023-2 5 season) 2025 INFLUENZA VACCINE (#1) 2025 HEPATITIS B VACCINE Aged Out No longe r eligible based on patient's age to complete this topic HIB VACCINE Aged Out No longer eligi ble based on patient's age to complete this topic HPV VACCINE Aged Out No longer eligi ble based on patient's age to complete this topic MENINGOCOCCAL (Group B) VACC INE SHARED DECISION-MAKING Aged Out No longer eligibl e based on patient's age to complete this topic MENINGOCOCCAL GROUPS A/C/Y/W VACCINE Aged Out No longer eligible b ased on patient's age to complete this topic Medical Devices Implanted Type Area Switchboard Manager Device Identifier Shelf Expiration Date Model / Serial / Lot Anant Bone [employer] Hv Implanted:Qty: 1 on 12/06/2012 by Dragan Pena MD at [facility] Left: Knee [employer] 06/17/2014 [id number] / / [id number] Ins Kn Vangurd Fem Cocr Intlok L 75mm Implanted:Qty: 1 on 12/06/2012 by Dragan Pena MD at [facility] Left: Knee [employer] 06/17/2022 [id number] / / [id number] Ty Tibial I Beam Fix Bar 79mm Implanted:Qty: 1 on 12/06/2012 by Dragan Pena MD at [facility] Left: Knee [employer] 09/14/2022 [id number] / / [id number] Butn Pat Arcom Wire Polyeth Med 34 X 9mm Implanted:Qty: 1 on 12/06/2012 by Dragan Pena MD at [facility] Left: Knee [employer] 10/15/2017 [id number] / / [id number] Tibial Bearing 10mm X 79mm Implanted:Qty: 1 on 12/06/2012 by Dragan Pena MD at [facility] Left: Knee 10/15/2017 [id number] / / [id number] Bridg Tib Ant Stblzd 12mm X 83mm Implanted:Qty: 1 on 12/05/2013 by Dragan Pena MD at [facility] Right: Knee [employer] 10/14/2018 [id number] / / [id number] Anant [employer] Hv Implanted:Qty: 1 on 12/05/2013 by Dragan Pena MD at [facility] Right: Knee [employer] 04/16/2015 [id number] / / [id number] Ins Kn Vangurd Fem Cocr R-Intlok 75.0mm Implanted:Qty: 1 on 12/05/2013 by Dragan Pena MD at [facility] Right: Knee [employer] 09/15/2023 [id number] / / [id number] Ty Tibial I Beam Fix Bar 83mm Implanted:Qty: 1 on 12/05/2013 by Dragan Pena MD at [facility] Right: [employer]nee [employer] 08/15/2023 [id number] / / [id number] Butn Pat Arcom Wire Polyeth Med 34 X 9mm Implanted:Qty: 1 on 12/05/2013 by Dragan Pena MD at [facility] Right: Knee [employer] 10/14/2018 [id number] / / [id number] Insurance MEDICARE [facility] Address: [facility] [id number] [place] [address] MEDICARE Advance Directives Documents on File Type Date Recorded 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
[2025-03-21 14:21] VITALS: BP 109/75; PULSE 91; RESP 20; O2SAT 100
[2025-03-21 14:46] LABS: Hematocrit 39.3 % (42.0-52.0); Hemoglobin 12.8 g/dL (14.0-18.0); Immature Granulocyte Percent A 0.2 % (0-0.5); Lymphocytes Absolute Auto 1.47 K/mm3 (0.9-3.2); Mean Corpuscular HGB Conc 32.6 g/dl (32-36); Mean Corpuscular Hemoglobin 34.8 pg (26-34); Mean Corpuscular Volume 106.8 fl (80-100); Nucleated Red Blood Cells Absolute Auto 0.000 K/mm3 (0.0-0.012); Nucleated Red Blood Cells Perc 0.0 % (0.0-0.2); Platelet Count Result 101 k/mm3 (150-375); Red Blood Count 3.68 M/mm3 (4.6-6.20); White Blood Count 5.1 K/mm3 (4.5-10.0)
--- NOTE | 2025-03-21 14:53 | ECG_ITS ---
Test Date: 2025-03-21 15:01:02 Measurements Intervals [place] Rate: 93 P: 0 OR: 0 QRS: 217 QRSD: 109 T: 74 QT: 391 QTc: 489 Interpretive Statements ATRIAL FIBRILLATION INCOMPLETE RIGHT BUNDLE BRANCH BLOCK [90+ ms QRS DURATION, TERMINAL R IN V1/V2, 40+ ms S IN I/aVL/V4/V5/V6] RIGHT VENTRICULAR HYPERTROPHY [SOME/ALL OF: PROMINENT R IN V1, LATE TRANSITION, RAD, YAZMIN, SSS] MINIMAL ST DEPRESSION [0.025+ mV ST DEPRESSION] Compared to ECG 03/21/2025 12:11:44 ST (T wave) deviation now present Electronically Signed On 03-21-2025 21:23:11 MOBILE THERAPIST by Matt Bhardwaj M.D.
[2025-03-21 15:04] LABS: Alanine Aminotransferase 28 U/L (6-50); Albumin Level 4.5 g/dL (3.5-5.1); Alkaline Phosphatase 123 U/L (38-126); Anion Gap 9 mmol/L (4-12); Aspartate Amino Transferase 45 U/L (17-59); Bilirubin,Total 2.5 mg/dL (0.2-1.3); Blood Urea Nitrogen 35 mg/dL (9-20); Calcium 9.3 mg/dL (8.4-10.2); Carbon Dioxide 24 mmol/L (22-30); Chloride 104 mmol/L (98-107); Estimated CRCL calculation 32 ml/min; Estimated Glomerular Filt Rate 47; Glucose 93 mg/dL (65-110); Magnesium 2.0 mg/dL (1.6-2.3); Potassium 4.2 mmol/L (3.4-5.0); Sodium 137 mmol/L (137-145); Total Protein 6.8 g/dL (6.3-8.2)
[2025-03-21 15:06] VITALS: PULSE 83
[2025-03-21 15:06] LABS: INR 1.5; Prothrombin Time 18.5 Seconds (11.1-14.7)
[2025-03-21 15:07] LABS: Partial Thromboplastin Time 36.6 Seconds (22.3-36.8)
[2025-03-21 15:12] LABS: Macrocytosis Occasional (NORMAL); Ovalocytes 1+; Schistocytes None Seen
[2025-03-21 15:14] LABS: NT Pro B Type Natriuretic Pept 20100 pg/mL (19.9-100); Troponin I 0.155 ng/mL (0.000-0.034)
[2025-03-21 15:16] VITALS: BP 103/65; PULSE 91; RESP 18; O2SAT 100
[2025-03-21] MEDS: ASPIRIN 81 MG CHEWABLE TABLET 324 MG PO (15:56)
[2025-03-21] MEDS: FUROSEMIDE INJ 40 MG/4 ML VIAL IV PUSH (15:58)
--- OUTSIDE RECORDS SUMMARY | 2025-03-21 16:10 | XMS_ITS | Encounter Summary ---
Author Organization [facility] Healthcare Address [address] [place] [address] Care Team Providers Care Bus Starter Name Role Phone Ruth Nayak MD Primary Care Provider Encounter Details Date Type Department Care Team (Late st Contact Info) Description 03/21/2025 Telephone [facility] Medical Group Cardiology [address] [place] [address] Dariela Moore NP [address] [place] [address] Social History Tobacco Use Types Packs/Day Years Used Date Smoking Tobacco: Former Smokeless Tobacco: Never Alcohol Use Standard Drinks/Week Comments Yes 0 (1 standard drink = 0.6 oz pur e alcohol) Sex and Gender Information Value Date Recorded Sex Assigned at Not on file 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 Dr Nayak verbalized understanding. NISTRATIVE SUPPORT ASSOCIATE documented in this encounter Plan of Treatment Not on file documented as of this encounter Visit Diagnoses Not on filedocumented in this encounter Care Teams Bus Starter Relationship Specialty Start Date End Date Ruth Nayak MD [address] [place] [id number] PCP - General Family Medicine 03/10/23 documented as of this encounter
--- OUTSIDE RECORDS SUMMARY | 2025-03-21 16:10 | XMS_ITS | Clinical Summary ---
Author Organization [facility] Address [address] [place] [address] Phone Care Team Providers Care Wire Frame Dipper Name Role Phone Rashard Herrera MD Primary Care Provider [phone] Allergies Active Allergy Reactions Criticality Noted Date [...] age to complete this topic Insurance MEDICARE [facility] Care Teams Wire Frame Dipper Relationship Specialty Start Date End Date Rashard Herrera MD PCP - General Internal Medicine 06/23/16
--- OUTSIDE RECORDS SUMMARY | 2025-03-21 16:10 | XMS_ITS | Encounter Summary ---
Author Organization [facility] Care Team Providers Care Religious Education Director Name Role Phone Rashard Herrera MD Primary Care Provider [phone] Adi Malave DO Primary Care Provider [phone] Gagan Schilling MD Primary Care Provider Ruth Nayak MD Primary Care Provider Encounter Details Date Type Department Care Team (Latest Contact Info) Description 04/14/2017 Orders Only [facility] CLINCONV ProviderLinda MD [address] [place] [id number] Social History Tobacco Use Types Packs/Day Years Used Date Smoking Tobacco: Former Alcohol Use Standard Drinks/Week Comments Yes 0 (1 standard drink = 0.6 oz pur e alcohol) Sex and Gender Information Value Date Recorded Sex Assigned at Not on file 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 us Historical Provider Final Res ult * PROCEDURE - RESULT (03/27/2017 12:00 AM CASH TELLER) Narrative 03/27/2017 12:00 AM CASH TELLER Ordered by an unspecified provider. us Historical Provider Final Res ult documented in this encounter Visit Diagnoses Not on filedocumented in this encounter Care Teams Religious Education Director Relationship Specialty Start Date End Date Rashard Herrera MD PCP - General 11/14/13 07/04/19 Adi Malave DO PCP - General Internal Medicine 07/05/19 05/28/22 Gagan Schilling MD PCP - General Family Medicine 05/29/22 03/09/23 Ruth Nayak MD [address] [place] [id number] PCP - General Family Medicine 03/10/23 documented as of this encounter
--- OUTSIDE RECORDS SUMMARY | 2025-03-21 16:10 | XMS_ITS | Clinical Summary ---
Author Organization [facility] Address [address] [place] [address] Care Team Providers Care Dry Placer Machine Operator Name Role Phone Ruth Nayak MD Primary Care Provider [phone] Allergies Active Allergy Reactions Criticality Noted Date Comments Clopidogrel Rash,Unknown Medium 06/23/2012 Medications apixaban (ELIQUIS) 5 MG tablet Take 1 tablet (5 mg total) by mouth 2 (two) times daily. 02/16/2023 Active budesonide-formo terol (SYMBICORT) 160-4.5 MCG/ACT inhaler Inhale 2 puffs into the lungs 2 (two) times daily. Active diclofenac sodium (VOLTAREN) 1 % gel 05/14/2022 Active multi vitamin/minerals (THERA-M ENHANCED) tablet Take 1 tablet by mouth. Active rosuvastatin (CRESTOR) 10 MG tablet Take 1 tablet (10 mg total) by mouth daily. Active valsartan-hydroC HLOROthiazide (DIOVAN-HCT) 320-12.5 MG tablet Take 1 tablet by mouth daily. Active nitroglycerin (NITROSTAT) 0.4 MG SL tablet 02/18/2023 Active Active Problems Problem Noted Date Diagnosed Date Status post lumbar spine ope rative procedure for decompression of spinal cord 02/23/2024 Lumbar radiculopathy 02/20/2023 Overview (02/20/2023): Added automatically from request for surgery [id number] Lumbar spondylosis 01/27/2023 Encounters Date Type Department Care Team Description 01/27/2025 11:34 AM CDT - 01/27/2025 11:59 PM CDT Hospital Encounter [facility] [address] [place] [address] [place]ño [place], [place] Discharge Disposition: Home or Self Care (Routine Discharge) 01/27/2025 Travel from Last 3 Months Social History Tobacco Use Types Packs/Day Years Used Date Smoking Tobacco: Never Smokeless Tobacco: Never Tobacco Cessation:Counseling Given: Not Answered Alcohol Use Standard Drinks/Week Comments Yes 0 (1 standard drink = 0.6 oz pur e alcohol) occassionally Sex and Gender Information Value Date Recorded Sex Assigned at Male 01/27/2025 11:33 AM CDT Legal Sex Male 9:58 AM CDT Gender Identity Not on file Sexual Orientation Not on file Last Filed Vital Signs Vital Sign Reading Time Taken Comments Blood Pressure 98/71 02/27/2023 2:28 PM CDT Pulse 73 02/27/2023 2:28 PM CDT Temperature 36.3 C (97.3 F) 02/27/2023 2:28 PM CDT Respiratory Rate 18 02/27/2023 2:28 PM CDT Oxygen Saturation 99% 02/27/2023 2:28 PM CDT Inhaled Oxygen Concentration - - Weight 93 kg (205 lb) 03/13/2023 11:35 AM CDT Height 180.3 cm (5' 11) 03/13/2023 11:35 AM CDT Body Mass Index 28.59 03/13/2023 11:35 AM CDT Plan of Treatment Health Maintenance Due Date Last Done Comments Annual Medicare Wellness Visit 2001 RSV Immunization or 60+ Years (1 - 1-dose 75+ series) 12/01/2011 Zoster Vaccines (2 of 3) 07/30/2018 06/04/2018 COVID-19 Vaccine ( - season) 2025 03/29/2021, 07/27/2020, 07/06/2020 Influenza Adult (#1) 2025 03/23/2018, 02/25/2017, 03/10/2016, Additional history exists DTaP, Tdap and Td Vaccines (3 - Td or Tdap) 01/05/2032 01/04/2022, 12/09/2019 Pneumococcal Vaccine: 50+ Years Completed 10/03/2022, 03/10/2016 Hepatitis A Vaccines Aged Out No long er eligible based on patient's age to complete this topic Meningococcal B Vaccine Aged Out No l onger eligible based on patient's age to complete this topic Meningococcal Vaccine Aged Out No feliberto marycarmen eligible based on patient's age to complete this topic RSV Immunizations Under 20 Months Aged Out No longer eligible based on patient's age to complete this topic Procedures Procedure Name Priority Date/Time Associated Diagnosis Comments XR LUMB SPINE 3V Routine 01/27/2025 11:4 3 AM CDT Chronic low back pain from Last 3 Months Results * XR LUMB SPINE 3V (01/27/2025 11:43 AM CDT) Anatomical Region Laterality Modality Spine Radiographic Mira ging 01/29/2025 9:42 AM CDT Impressions 01/29/2025 9:44 AM CDT IMPRESSION: No acute findings. Stable scoliosis and spondylosis as described. Referred By: Interpreted By: Kalpesh Tavera MD, 01/29/2025 9:42 AM Narrative 01/29/2025 9:44 AM CDT [address] [place] [address] Examination: Lumbar spine. Exam time: 1118 hours. Clinical history: Chronic pain. Comparison: 10/23/2023. Technique: Upright AP, lateral and spot lateral views. Findings: There is no fracture or dislocation. The vertebral bodies are maintained normally in height. There is stable mild leftward convex scoliosis. There is stable minimal anterolisthesis at L4-5. Alignment is otherwise satisfactory. There is stable multilevel disc space narrowing and paravertebral osteophyte formation. Atherosclerotic calcification of the aorta is noted. The paraspinous soft tissues are otherwise unremarkable. Procedure Note Kalpesh Tavera MD - 01/29/[address] [place] [address] Examination: Lumbar spine. Exam time: 1118 hours. Clinical history: Chronic pain. Comparison: 10/23/2023. Technique: Upright AP, lateral and spot lateral views. Findings: There is no fracture or dislocation. The vertebral bodies aremaintained normally in height. There is stable mild leftward convexscoliosis. There is stable minimal anterolisthesis at L4-5. Alignment isotherwise satisfactory. There is stable multilevel disc space narrowingand paravertebral osteophyte formation. Atherosclerotic calcification ofthe aorta is noted. The paraspinous soft tissues are otherwiseunremarkable. IMPRESSION: No acute findings. Stable scoliosis and spondylosis as described. Referred By: Interpreted By: Kalpesh Tavera MD, 01/29/2025 9:42 AM [facility] Final Result from Last 3 Months Insurance MEDICARE [facility] Care Teams Dry Placer Machine Operator Relationship Specialty Start Date End Date Ruth Nayak MD [address] [place] [phone] PCP - General FAMILY PRACTICE 8/16/24
--- OUTSIDE RECORDS SUMMARY | 2025-03-21 16:10 | XMS_ITS | Clinical Summary ---
Author Organization [facility] [address] [address] Address [address] [place] [address] Care Team Providers Care General Sales Manager Name Role Phone Ruth Nayak MD Primary [...] mg SL tabletIndicatio ns:Coronary artery disease involving port lions coronary artery of port lions heart without angina pectoris Place 1 tablet (0.4 mg total) under the tongue every 5 (five) minutes as needed for chest pain (May repeat q 5 minutes up to 3 doses in 15 minutes) 25 tablet 3 Active Active Problems Problem Noted Date Diagnosed Date Persistent atrial fibrillation 03/10/2023 Coronary artery disease invo lving port lions coronary artery of port lions heart without angina pectoris 07/14/2017 Encounters Date Type Department Care Team Description 03/21/2025 Telephone [facility] Medical Group Cardiology [address] [place] [phone] Dariela Moore NP 01/12/2025 Results Follow-Up [facility] Cardiology [address] [place] [phone] Dariela Moore NP SCAN - RADIOLOGY/IMAGING 01/06/2025 Orders Only [facility] Health Information Management [address] [place], [place] [id number] Dariela Moore NP from Last 3 Months [...] on file 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
--- OUTSIDE RECORDS SUMMARY | 2025-03-21 16:10 | XMS_ITS | Clinical Summary ---
Author Organization [facility] Address [address] [facility] [place] [address] Care Team Providers Care Pulp Tester Name Role Phone Dragna Pena MD Unavailable [phone] Gagan Schilling MD Primary Care Provider [phone] Source Comments [facility],non-owned Affiliates and Associated Physician Practices is amultiple site organization consisting of ambulatory clinics and hospital sitesin [place], [place], [place] and [place]. This disclosure is being madepursuant to the Care Everywhere program and may not contain all information available regarding this patient. 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 Left: Knee [employer] 06/17/2014 [id number] / / [id number] Ins Kn Vangurd Fem Cocr Intlok L 75mm Implanted:Qty: 1 on 12/06/2012 by Dragan Pena MD at [facility] Left: [employer]nee [employer] 06/17/2022 [id number] / / [id number] Ty Tibial I Beam Fix Bar 79mm Implanted:Qty: 1 on 12/06/2012 by Dragan Pena MD at [facility] Left: [employer]nee [employer] 09/14/2022 [id number] / / [id number] Butn Pat Arcom Wire Polyeth Med 34 X 9mm Implanted:Qty: 1 on 12/06/2012 by Dragan Pena MD at [facility] Left: [employer] 10/15/2017 [id number] / / [id number] Tibial Bearing 10mm X 79mm Implanted:Qty: 1 on 12/06/2012 by Dragan Pena MD at [facility] Left: Knee 10/15/2017 [id number] / / [id number] Bridg Tib Ant Stblzd 12mm X 83mm Implanted:Qty: 1 on 12/05/2013 by Dragan Pena MD at [facility] Right: Knee [employer] 10/14/2018 [id number] / / [id number] Anant Bone Lyerly Hv Implanted:Qty: 1 on 12/05/2013 by Dragan Pena MD at [facility] Right: K[employer] 04/16/2015 [id number] / / [id number] Ins Kn Vangurd Fem Cocr R-Intlok 75.0mm Implanted:Qty: 1 on 12/05/2013 by Dragan Pena MD at [facility] Right: [employer] 09/15/2023 [id number] / / [id number] Ty Tibial I Beam Fix Bar 83mm Implanted:Qty: 1 on 12/05/2013 by Dragan Pena MD at [facility] Right: [employer] 08/15/2023 [id number] / / [id number] Butn Pat Arcom Wire Polyeth Med 34 X 9mm Implanted:Qty: 1 on 12/05/2013 by Dragan Pena MD at 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
--- NOTE | 2025-03-21 16:56 | ECG_ITS ---
Test Date: 2025-03-21 17:07:20 Measurements Intervals [place] Rate: 77 P: 0 [place]: 0 QRS: 216 QRSD: 123 T: 63 QT: 416 QTc: 471 Interpretive Statements ATRIAL FIBRILLATION RIGHT AXIS DEVIATION [QRS AXIS > 100] RIGHT BUNDLE BRANCH BLOCK [120+ ms QRS DURATION, UPRIGHT V1, 40+ ms S IN I/aVL/V4/V5/V6] SEPTAL MYOCARDIAL INFARCTION , PROBABLY OLD [40+ ms Q WAVE IN V1/V2] Electronically Signed On 03-21-2025 21:27:36 TESTER ROCKET ENGINE by Matt Bhardwaj M.D.
[2025-03-21 17:35] VITALS: BMI 28.0
--- NOTE | 2025-03-21 17:38 | P.CONCA_ITS ---
Assessment and Plan Assessment and plan (1) Acute exacerbation of CHF (congestive heart failure): Code(s): I50.9 - Heart failure, unspecified Status: Acute (2) A-fib: Code(s): I48.91 - Unspecified atrial fibrillation Status: Acute (3) ILD (interstitial lung disease): Code(s): J84.9 - Interstitial pulmonary disease, unspecified Status: Acute (4) CATRINA (acute kidney injury): Code(s): N17.9 - Acute kidney failure, unspecified Status: Acute (5) Chronic kidney disease, stage 3: Code(s): N18.3 - Chronic kidney disease, stage 3 (moderate) Status: Acute Plan Impression: 1. Patient with the known history of chronic atrial fibrillation presents with had increasing shortness of breath. Admitting EKG showed controlled ventricular response. Patient is on oral anticoagulation 2. History of electric cardioversion in August of 2024. 3. Acute on chronic diastolic heart failure. Previous echocardiogram has shown ejection fraction in the range of 50-55% with moderate concentric hypertrophy of the left ventricle. Moderate aortic regurgitation is also noted with mild mitral regurgitation. Recent MAGDALENA showed slightly decreased LV systolic function. Estimated ejection fraction was 45%. Patient is grade 1 diastolic dysfunction. Patient is severe left atrial enlargement. 4. 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 This has been discontinued as of July of 2024. However present home medication does include amiodarone 200 mg p.o. daily. 5. Elevated cardiac enzymes without transit testing acute coronary syndrome. Likely secondary to chronic go renal failure, stage IIIB. 6. Markedly elevated BNP likely secondary to acute on chronic diastolic heart failure. 7. History of hypertension, chronic kidney stones and mixed hyperlipidemia. Recommendations: #. All medications reviewed. Patient is on amiodarone 200 mg daily along with apixaban 5 mg b.i.d. at home or atrial fibrillation. #. Patient is on valsartan with hydrochlorothiazide 320/12.5 mg daily. #. Question about amiodarone related pulmonary fibrosis in the past by CT scan. Will check with his primary packaging sales consultant. Currently heart rate is controlled. #. IV diuresis with Lasix 40 mg IV push b.i.d., continue with Eliquis 5 mg daily and rosuvastatin at night. #. Current blood pressure is soft at 103/65 and that is going to limit addition of other medications. Heart rate is 83 per minute Will hold the valsartan/hydrochlorothiazide at this time. #. Code status is unknown. Conservative medical management would be prudent for this patient. #. Check thyroid function test on amiodarone if not done recently. Thank you again for allowing us to participate in care this patient. History of Present Illness History of Present Illness Consult date/time: 03/21/25 17:38 Requesting physician: Yisel Trejo MD Consult reason: congestive heart failure Reason For Visit: CHF EXAC Narrative: Patient is a 89-year-old male admitted today with complaints of shortness of breath. Patient was seen in the primary physician office and subsequent EKG showed atrial fibrillation and was sent to the emergency room. Patient has history of atrial fibrillation treated with rate control and oral anticoagulation with Eliquis. Patient noted associated fatigue and intermittent dizziness. No complaints of chest pain, syncope, recent fever or chills. No complaints of abdominal pain, nausea vomiting or diarrhea Past medical history significant for coronary artery disease, hypertension, mixed hyperlipidemia, chronic stage 3 kidney disease and kidney stones Admitting blood pressure was 103/65 and heart rate was 91 per minute. Patient is afebrile and respirations 18 per minute. Admitting laboratory data revealed WBC count 5.1, hemoglobin 12.8 and platelets are 101 1000 Sodium 137, potassium is 4.2, BUN is 35, creatinine 1.4. Protime is 18.5 with INR of 1.5. Cardiac troponin 0.155 followed by 0.146. ProBNP was 93808. Admitting EKG revealed atrial fibrillation without 107 per minute and no other significant ST changes. Admitting chest x-ray revealed right basilar infiltrate suspicious for atelectasis or pneumonia, small right pleural effusion and cardiomegaly. Patient had al elective cardioversion on 07/22/2024. Preprocedure transesophageal echocardiogram revealed mildly reduced LV systolic function. Review of Systems 2 Review of Systems: Twelve point review of system was completed. Pertinent positive and negative findings per HPI. Constitutional negative for weight loss, fever or chills or fatigue. Head and neck is negative. Pulmonary positive for shortness of breath, negative for wheezing or crepitation. Cardiovascular positive for shortness of breath and palpitations. Negative for chest pain. Neurovascular is negative for seizures, new focal weakness. Musculoskeletal and skin are negative. [facility] Past Medical History Medical History CAD (coronary artery disease) Chronic GERD Abnormal cystoscopy Chronic back pain Degenerative disc disease COVID-19 LUQ abdominal pain Epididymal mass Kidney stones ASHD (arteriosclerotic heart disease) Chronic kidney disease, stage 3 Essential hypertension History of kidney stones Medication monitoring encounter Mixed hyperlipidemia Surgical History Surgical History History of tonsillectomy History of carpal tunnel surgery H/O cardiac catheterization Cataract extraction status History of appendectomy History of total bilateral knee replacement Family History Family History Father Family history of cardiovascular disease, Onset Age: 79 Family history of malignant neoplasm, Onset Age: 79 Family history of heart disease in male family member before age 55 Heart attack Other Family history of arthritis Hypertension Social History Social History Social History: The patient lives at home with his . He is retired from [employer]. They have 2 children. He is a social drinker. He is a former smoker. His is the durable power document review attorney for healthcare. Code status full code Second hand tobacco smoke exposure: No Alcohol intake: current Drinks per week: 1 Alcohol use details: beer whiskey Substance use: never Substance use type: does not use Lack of Transportation: No Lack of Food: Never True Current Housing: I Have Housing Concerned About Future Housing: No Difficulty Paying Gas/Electric Bills: No Difficulty Paying for Meds: No Currently Unemployed: No Education: High School Diploma/GED Difficulty w/ Childcare or Family Care: No Living arrangements: with family Gender identity (if verbalized by the patient): Male Sexual Orientation (if Verbalized by the Patient): Straight or Heterosexual Spiritual care concerns: No Meds Home Medications and Allergies Home Medications ?Medication ?Instructions ?Recorded ?Confirmed ?Type valsartan 320 1 tablet PO DAILY #90 tabs 0 01/31/22 03/21/25 Rx mg-hydrochlorothiazide 12.5 mg tablet (Diovan HCT) apixaban 5 mg tablet (Eliquis) 5 mg PO BID 03/19/23 History nitroglycerin 0.4 mg sublingual See Rx Instructions .R oute 03/20/23 03/21/25 History tablet .COMPLEX PRN Chest Pain buspirone 15 mg tablet 15 mg PO DAILY 03/21/2509/09 History hydrocodone 5 mg-acetaminophen 325 1 tablet PO QID PRN pain 03/21/25 03/21/25 History mg tablet rosuvastatin 20 mg tablet (Crestor) 10 mg PO QPM 03/2103/21/25 History Allergies Allergy/AdvReac Type Severity Reaction Status Date / Time clopidogrel Allergy Intermediate Red Rash Verified 03/21/25 17:52 Vital Signs Vital Signs - 24 hr 03/21/25 12:04 03/21/25 14:21 03/21/25 15:06 Temperature 36.3 C L Pulse Rate 67 91 83 Respiratory Rate 22 H 20 Blood Pressure 119/83 109/75 Pulse Oximetry 99 100 Oxygen Delivery Room Air 03/21/25 15:16 Temperature Pulse Rate 91 Respiratory Rate 18 Blood Pressure 103/65 Pulse Oximetry 100 Oxygen Delivery Exam 2 Narrative: Patient examined at bedside. Vital signs were reviewed. Head and neck examination unremarkable. Patient is awake alert oriented x3 without any acute distress . Neck is supple. There is No JVD or carotid bruit. There is enlargement. Lungs revealed decreased air entry bilaterally with fine crepitation. More on right than left. No wheezing or rhonchi. Abdomen is soft nontender. There is no hepatosplenomegaly probable sounds present 30 Extremities reveal mild bilateral leg edema. Neurological examination is intact without any focal neurological abnormalities. Psych is negative. Results Labs and Meds 03/21/25 14:36 03/21/25 14:36 Lab results: Cardiac Enzymes 03/21/25 Range/Units 14:36 AST 45 (17-59) U/L Troponin I 0.155 H* (0.000-0.034) ng/mL Coagulation 03/21/25 Range/Units 14:36 PT 18.5 H (11.1-14.7) Seconds APTT 36.6 (22.3-36.8) Seconds CBC 03/21/25 Range/Units 14:36 WBC 5.1 (4.5-10.0) K/mm3 RBC 3.68 L (4.6-6.20) M/mm3 Hgb 12.8 L (14.0-18.0) g/dL Hct 39.3 L (42.0-52.0) % Plt Count 101 L (150-375) k/mm3 Lymph # (Auto) 1.47 (0.9-3.2) K/mm3 E[place] # (Auto) 0.5 (0.1-0.6) K/mm3 Eos # (Auto) 0.1 (0-0.3) K/mm3 Baso # (Auto) 0.1 (0.0-0.1) K/mm3 Comprehensive Metabolic Panel 03/21/25 Range/Units 14:36 Sodium 137 (137-145) mmol/L Potassium 4.2 (3.4-5.0) mmol/L Chloride 104 (98-107) mmol/L Carbon Dioxide 24 (22-30) mmol/L BUN 35 H (9-20) mg/dL Creatinine 1.42 H (0.7-1.3) mg/dL Glucose 93 (65-110) mg/dL Calcium 9.3 (8.4-10.2) mg/dL AST 45 (17-59) U/L ALT 28 (6-50) U/L Alkaline Phosphatase 123 (38-126) U/L Total Protein 6.8 (6.3-8.2) g/dL Albumin 4.5 (3.5-5.1) g/dL Patient Weight 03/21/25 23:59 Weight 86.2 kg
--- NOTE | 2025-03-21 17:38 | ADMGEN ---
This patient, Jeronimo Guallpa, was admitted to Medical Room 243-. Patient/family oriented to hospital policies and general routines including ID bracelet, bed and alarms, visiting hours, pain management, procedures, bathroom and other care routines, personal items, smoking policy, room service/diet, and visiting hours. Information on how to activate the Rapid Response Team has been discussed. Patient/Family are encouraged to report perceived risks to care and to ask questions if they do not understand what they are told or what they should do.
[2025-03-21 17:40] LABS: Troponin I 0.146 ng/mL (0.000-0.034)
[2025-03-21 20:00] VITALS: PULSE 91
--- NOTE | 2025-03-21 20:00 | ECG_ITS ---
Test Date: 2025-03-21 21:04:04 Measurements Intervals [place] Rate: 92 P: 0 MS: 0 QRS: 189 QRSD: 113 T: 22 QT: 428 QTc: 530 Interpretive Statements ATRIAL FIBRILLATION INCOMPLETE RIGHT BUNDLE BRANCH BLOCK [90+ ms QRS DURATION, TERMINAL R IN V1/V2, 40+ ms S IN I/aVL/V4/V5/V6] POSSIBLE RIGHT VENTRICULAR HYPERTROPHY [SOME/ALL OF: PROMINENT R IN V1, LATE TRANSITION, RAD, YAZMIN, SSS] SEPTAL MYOCARDIAL INFARCTION , PROBABLY OLD [40+ ms Q WAVE IN V1/V2] Electronically Signed On 03-21-2025 21:29:20 SCULPTURE INSTRUCTOR by Matt Bhardwaj M.D.
[2025-03-21 20:13] VITALS: BP 110/73; PULSE 100; RESP 20; TEMP 36.6; O2SAT 100
[2025-03-21 20:44] LABS: Troponin I 0.146 ng/mL (0.000-0.034)
--- NOTE | 2025-03-21 20:45 | PM.IMHP ---
H&P: HPI History of Present Illness Date/Time: 03/21/25 20:45 Chief Complaint: Weakness, Shortness of Breath Narrative: 89 y/o M with PMH of CAD, GERD, kidney stones, CKD stage 3, hypertension, hyperlipidemia, and atrial fibrillation presents here with weakness and shortness of breath. The patient presents here from home on 03/21 for further evaluation of generalized weakness and shortness of breath that has been ongoing for the past 3 weeks. He reports the shortness of breath has been gradually worsening and is exacerbated by exertion. He reports accompanying fatigue, intermittent dizziness, and swelling to his bilateral lower extremities. He reports the swelling to his bilateral lower extremities has been ongoing for some time, mostly noted at the end of the day due to noticing and intend where his sock line would be. He denies chest pain, palpitations, nausea, vomiting, or diuresis. He was initially evaluated by his PCP today for the symptoms, EKG showed atrial fibrillation with prolonged QTC. The patient has a history of atrial fibrillation on Eliquis for which she has previously underwent a cardioversion. He follows with a information resources manager, Dr. Paris. Initial VS at presentation: 97.4? F, HR 67, R 22, 119/83, and 99% on RA. ED workup showed: No leukocytosis, hemoglobin 12.8 (11.7 on 06/27/2024), INR 1.5, no significant electrolyte derangements, creatinine 1.42 and GFR 47 (1.65 and GFR 40 on 06/27/2024), initial troponin 0.155 (similar to previous in 2021), BNP 82364. CXR showed right basilar infiltrate may be atelectasis or pneumonia, small right pleural effusion, cardiomegaly. Initial EKG showed atrial fibrillation with RVR, rate 107, incomplete right bundle branch block. Review of Systems Review of Systems: All systems reviewed & are unremarkable except as noted in HPI and below [facility] Past Medical History Medical History Depression Anxiety Mixed hyperlipidemia CAD (coronary artery disease) ASHD (arteriosclerotic heart disease) Chronic GERD Abnormal cystoscopy Chronic back pain Degenerative disc disease COVID-19 Epididymal mass Chronic kidney disease, stage 3 Essential hypertension History of kidney stones Medication monitoring encounter Surgical History Surgical History History of shoulder surgery Bilateral rotator cuff History of tonsillectomy History of carpal tunnel surgery H/O cardiac catheterization Cataract extraction status History of appendectomy History of total bilateral knee replacement Family History Family History Father Family history of cardiovascular disease, Onset Age: 79 Family history of malignant neoplasm, Onset Age: 79 Family history of heart disease in male family member before age 55 Heart attack Other Family history of arthritis Hypertension Social History Social History Social History: The patient lives at home with his . He is retired from [employer]. They have 2 children. He is a social drinker. He is a former smoker. His is the durable power disability attorney for healthcare. Code status full code Smoking status: Former smoker Second hand tobacco smoke exposure: No Alcohol intake: current Drinks per week: 1 Alcohol use details: beer whiskey Substance use: never Substance use type: does not use Lack of Transportation: No Lack of Food: Never True Current Housing: I Have Housing Concerned About Future Housing: No Difficulty Paying Gas/Electric Bills: No Difficulty Paying for Meds: No Currently Unemployed: No Education: High School Diploma/GED Difficulty w/ Childcare or Family Care: No Living arrangements: with family Gender identity (if verbalized by the patient): Male Sexual Orientation (if Verbalized by the Patient): Straight or Heterosexual Spiritual care concerns: No Meds Home Medications and Allergies Home Medications ?Medication ?Instructions ?Recorded ?Confirmed ?Type valsartan 320 1 tablet PO DAILY #90 tabs 01/31/22 03/21/25 Rx mg-hydrochlorothiazide 12.5 mg tablet (Diovan HCT) apixaban 5 mg tablet (Eliquis) 5 mg PO BID 03/19/23 03/21/25 History nitroglycerin 0.4 mg sublingual See Rx Instructions .Route 03/20/23 03/21/25 History tablet .COMPLEX PRN Chest Pain buspirone 15 mg tablet 15 mg PO DAILY 03/21/25 03/21/25 History hydrocodone 5 mg-acetaminophen 325 1 tablet PO QID PRN pain 03/21/25 03/21/25 History mg tablet rosuvastatin 20 mg tablet (Crestor) 10 mg PO QPM 03/21/25 03/21/25 History Allergies Allergy/AdvReac Type Severity Reaction Status Date / Time clopidogrel Allergy Intermediate Red Rash Verified 03/21/25 17:52 Vital Signs Vital Signs - 24 hr 03/21/25 12:04 03/21/25 14:21 03/21/25 15:06 Temperature 97.4 F L Pulse Rate 67 91 83 Respiratory Rate 22 H 20 Blood Pressure 119/83 109/75 Pulse Oximetry 99 100 Oxygen Delivery Room Air 03/21/25 15:16 03/21/25 20:13 Temperature 97.8 F Pulse Rate 91 100 Respiratory Rate 18 20 Blood Pressure 103/65 110/73 Pulse Oximetry 100 100 Oxygen Delivery Exam Const: General: comfortable and no acute distress Other: , male, elderly, nontoxic appearance HENMT: Face/Nose/Sinus: Normal nares present Mouth: Yes moist mucous membranes Eyes: General: appearance normal, both eyes and all related structures Sclera: sclerae normal Pupils: Equal, round and reactive pupils present EOM: EOMs intact bilaterally Resp: Effort & Inspection: normal respiratory effort Auscultation: clear to auscultation bilaterally Cardio: Rate: regular rate Rhythm: abnormal rhythm Other: No murmur or rub, irregular rhythm consistent with AFib GI: Other: Abdomen soft, nondistended, nontender. Normoactive bowel sounds in all quadrants. Skin: General skin exam: normal color and no rashes or lesions noted Wounds: no wounds Neuro: Speech: normal speech Motor exam (neuro): 5/5 motor strength present throughout Sensory Exam: normal sensation Other: A&O x4 Extrem: Other: +1 pitting edema to bilateral lower extremities, symmetric Psych: Mental Status: mental status grossly normal Affect: normal affect Other: Good insight and judgment, pleasant H&P: Results Labs Labs: Short CBC 03/21/25 Range/Units 14:36 WBC 5.1 (4.5-10.0) K/mm3 Hgb 12.8 L (14.0-18.0) g/dL Hct 39.3 L (42.0-52.0) % Plt Count 101 L (150-375) k/mm3 [facility] 03/21/25 14:36 Sodium 137 Potassium 4.2 Chloride 104 Carbon Dioxide 24 BUN 35 H Creatinine 1.42 H Glucose 93 Calcium 9.3 Cardiac Enzymes 03/21/25 03/21/25 03/21/25 Range/Units 14:36 17:05 19:51 Troponin I 0.155 H* 0.146 H* 0.146 H* (0.000-0.034) ng/mL Liver Function 03/21/25 Range/Units 14:36 Total Bilirubin 2.5 H (0.2-1.3) mg/dL AST 45 (17-59) U/L ALT 28 (6-50) U/L Alkaline Phosphatase 123 (38-126) U/L Albumin 4.5 (3.5-5.1) g/dL Assessment and Plan Assessment and plan (1) Acute exacerbation of CHF (congestive heart failure): Qualifiers: Heart failure type: combined systolic and diastolic Qualified Code(s): I50.43 - Acute on chronic combined systolic (congestive) and diastolic (congestive) heart failure Code(s): I50.9 - Heart failure, unspecified Status: Acute Assessment and Plan: Concern for acute on chronic diastolic heart failure. Patient reporting worsening shortness of breath for the past 3 weeks that worsens with exertion. Reviewed chart, previous echo reviewed from 2021 which showed an EF of 58-55% with moderate concentric hypertrophy of the LV, moderate AV regurgitation, mild MV regurgitation. Recent MAGDALENA performed on07/22/24 which showed a mildly decreased LV systolic function with an estimated EF of 45% and grade 1 diastolic dysfunction with severe left atrial enlargement. - cardiology consulted, see note and recommendation - start IV diuresis NH Lasix 40 mg b.i.d. >> BP initially soft at 103/65 which may be limiting to diuresis. Will hold home antihypertensives including valsartan and hydrochlorothiazide. - monitor renal function - monitor electrolytes, correct as needed - monitor I&Os daily weights (2) Elevated troponin: Code(s): R77.8 - Other specified abnormalities of plasma proteins Status: Acute Assessment and Plan: Mildly elevated troponin that has been thus far flat (0.155 -> 0.146 -> 0.146). Previously elevated in 2021 between 0.141 and 0.162. May be chronic for patient due to history of CKD. Cad Drafter consulted, feels elevated troponin more likely chronic verses ACS. No current chest pain. Monitor. (3) A-fib: Qualifiers: Atrial fibrillation type: persistent (not longstanding) Qualified Code(s): I48.19 - Other persistent atrial fibrillation Code(s): I48.91 - Unspecified atrial fibrillation Status: Acute Assessment and Plan: Patient has history of chronic atrial fibrillation. Initial EKG showed AFib RVR, repeat EKG showed AFib with controlled ventricular response. Has history of cardioversion in August of 2024. - continue Eliquis - information resources manager reaching out to patient's primary information resources manager for clarification on patient's amiodarone, patient has history of pulmonary fibrosis possibly secondary to amiodarone. Also recommended TSH if not done recently, TSH 3.3 on 06/27/2024. Will update. - telemetry monitoring (4) Chronic kidney disease, stage 3: Qualifiers: Chronic kidney disease stage 3 subtype: unspecified whether 3a or 3b Qualified Code(s): N18.30 - Chronic kidney disease, stage 3 unspecified Code(s): N18.3 - Chronic kidney disease, stage 3 (moderate) Status: Acute Assessment and Plan: Patient has history pre of CKD, currently at baseline. Renal function upon admission: Creatinine 1.42, BUN 35, GFR 47. - trend renal function, started on IV diuresis (5) Essential hypertension: Code(s): I10 - Essential (primary) hypertension Status: Acute Assessment and Plan: - chronic, currently 110/73. - hold home medication (valsartan-hydrochlorothiazide) given the patient is started on IV diuresis and his pressure us on the low end of normal. - monitor Plan Diet: Heart healthy GI Prophylaxis: N/a DVT Prophylaxis: Eliquis IV fluids: None, diuresing Lines/Tubes: Peripheral IV Code Status: DNR Quality VTE Prophylaxis VTE prophylaxis: pharmacologic ordered Hospitalist [facility] [facility] Advance Care Plan I have confirmed that the patient's Advanced Care Plan is present, code status is documented, or surrogate decision maker is listed in patient medical record.: Yes Medication Reconciliation I have utilized all available resources to obtain, update and review the patients current medications (includes all prescriptions, OTC, herbals, cannabis, and nutritional supplements).: Yes
[2025-03-21] MEDS: ROSUVASTATIN 10 MG TABLET PO (21:41)
[2025-03-21] MEDS: APIXABAN 5 MG TABLET PO (21:41)
[2025-03-22] VITALS (11 sets, daily range): BP systolic 92–118; BP diastolic 56–73; PULSE 62–104; RESP 16–18; TEMP 36.2–36.8; O2SAT 94–100
[2025-03-22 05:24] LABS: Hematocrit 35.8 % (42.0-52.0); Hemoglobin 11.6 g/dL (14.0-18.0); Immature Granulocyte Percent A 0.2 % (0-0.5); Lymphocytes Absolute Auto 1.59 K/mm3 (0.9-3.2); Mean Corpuscular HGB Conc 32.4 g/dl (32-36); Mean Corpuscular Hemoglobin 34.6 pg (26-34); Mean Corpuscular Volume 106.9 fl (80-100); Nucleated Red Blood Cells Absolute Auto 0.000 K/mm3 (0.0-0.012); Nucleated Red Blood Cells Perc 0.0 % (0.0-0.2); Platelet Count Result 102 k/mm3 (150-375); Red Blood Count 3.35 M/mm3 (4.6-6.20); White Blood Count 4.7 K/mm3 (4.5-10.0)
[2025-03-22 05:40] LABS: Anion Gap 8 mmol/L (4-12); Blood Urea Nitrogen 34 mg/dL (9-20); Calcium 8.8 mg/dL (8.4-10.2); Carbon Dioxide 25 mmol/L (22-30); Chloride 103 mmol/L (98-107); Estimated CRCL calculation 32 ml/min; Estimated Glomerular Filt Rate 46; Glucose 89 mg/dL (65-110); Potassium 3.8 mmol/L (3.4-5.0); Sodium 136 mmol/L (137-145)
[2025-03-22 05:54] LABS: Ovalocytes 1+; Schistocytes None Seen
[2025-03-22 06:22] LABS: Thyroid Stimulating Hormone Reflex 4.790 uIU/mL (0.465-4.68)
[2025-03-22 07:02] LABS: Free T4 Free Thyroxine Reflex 1.31 ng/dL (0.78-2.19)
[2025-03-22] MEDS: APIXABAN 5 MG TABLET PO ×2 (09:02→20:41)
[2025-03-22] MEDS: FUROSEMIDE INJ 40 MG/4 ML VIAL IV PUSH ×2 (09:03→17:46)
--- NOTE | 2025-03-22 11:32 | P.PNCA_ITS ---
Progress Note: A&P Assessment and Plan (1) A-fib: Qualifiers: Atrial fibrillation type: persistent (not longstanding) Qualified Code(s): I48.19 - Other persistent atrial fibrillation Code(s): I48.91 - Unspecified atrial fibrillation Status: Acute (2) ILD (interstitial lung disease): Code(s): J84.9 - Interstitial pulmonary disease, unspecified Status: Acute (3) Acute exacerbation of CHF (congestive heart failure): Qualifiers: Heart failure type: combined systolic and diastolic Qualified Code(s): I50.43 - Acute on chronic combined systolic (congestive) and diastolic (congestive) heart failure Code(s): I50.9 - Heart failure, unspecified Status: Acute (4) CATRINA (acute kidney injury): Code(s): N17.9 - Acute kidney failure, unspecified Status: Acute (5) Essential hypertension: Code(s): I10 - Essential (primary) hypertension Status: Acute (6) Chronic kidney disease, stage 3: Qualifiers: Chronic kidney disease stage 3 subtype: unspecified whether 3a or 3b Qualified Code(s): N18.30 - Chronic kidney disease, stage 3 unspecified Code(s): N18.3 - Chronic kidney disease, stage 3 (moderate) Status: Acute Plan Impression: 1. Patient with the known history of chronic atrial fibrillation presents with had increasing shortness of breath. Admitting EKG showed controlled ventricular response. Patient is on oral anticoagulation 2. History of electric cardioversion in August of 2024. 3. Acute on chronic diastolic heart failure. Previous echocardiogram has shown ejection fraction in the range of 50-55% with moderate concentric hypertrophy of the left ventricle. Moderate aortic regurgitation is also noted with mild mitral regurgitation. Recent PRIETO showed slightly decreased LV systolic function. Estimated ejection fraction was 45%. Patient is grade 1 diastolic dysfunction. Patient is severe left atrial enlargement. 4. 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 This has been discontinued as of July of 2024. However present home medication does include amiodarone 200 mg p.o. daily. 5. Elevated cardiac enzymes without transit testing acute coronary syndrome. Likely secondary to chronic go renal failure, stage IIIB. 6. Markedly elevated BNP likely secondary to acute on chronic diastolic heart failure. 7. History of hypertension, chronic kidney stones and mixed hyperlipidemia. Recommendations: #. All medications reviewed. Patient is on amiodarone 200 mg daily along with apixaban 5 mg b.i.d. at home or atrial fibrillation. EKG this morning reveals atrial fibrillation with controlled ventricular response at 92 per minute. #. Patient is on valsartan with hydrochlorothiazide 320/12.5 mg daily. Blood pressure is 104/71 and heart rate is 74 per minute this morning. #. Question about amiodarone related pulmonary fibrosis in the past by CT scan. Will check with his primary water valve mechanic. Currently heart rate is controlled. -continue to use minimally he required amiodarone does show. Decreased to 100 mg daily or 200 mg every other day. #. IV diuresis with Lasix 40 mg IV push b.i.d., continue with Eliquis 5 mg daily and rosuvastatin at night. Good diuresis overnight. Patient has mild bilateral leg edema as of today. Will change to p.o. Lasix tomorrow #. Current blood pressure is soft at 103/65 and that is going to limit addition of other medications. Heart rate is 83 per minute Will decrease valsartan/hydrochlorothiazide. BUN is 34 and creatinine is 1.45 as of today and stable. #. Code status is unknown. Conservative medical management would be prudent for this patient. #. Check thyroid function test on amiodarone if not done recently. #. Clinically patient has improved though with good diuresis so. Will discontinue Lasix in the morning and increase activity. Prieto echo findings noted from July of 2024. Follow-up echocardiogram. Subjective Date/time seen: 03/22/25 11:32 Interval history: Review of HPI; elham is a 89-year-old male admitted today with complaints of shortness of breath. Patient was seen in the primary physician office and subsequent EKG showed atrial fibrillation and was sent to the emergency room. Patient has history of atrial fibrillation treated with rate control and oral anticoagulation with Eliquis. Patient noted associated fatigue and intermittent dizziness. No complaints of chest pain, syncope, recent fever or chills. No complaints of abdominal pain, nausea vomiting or diarrhea Past medical history significant for coronary artery disease, hypertension, mixed hyperlipidemia, chronic stage 3 kidney disease and kidney stones Admitting blood pressure was 103/65 and heart rate was 91 per minute. Patient is afebrile and respirations 18 per minute. Admitting laboratory data revealed WBC count 5.1, hemoglobin 12.8 and platelets are 101 1000 Sodium 137, potassium is 4.2, BUN is 35, creatinine 1.4. Protime is 18.5 with INR of 1.5. Cardiac troponin 0.155 followed [place] 0.146. ProBNP [place] [address]. Admitting EKG revealed atrial fibrillation without 107 per minute and no other significant ST changes. Admitting chest x-ray revealed right basilar infiltrate suspicious for atelectasis or pneumonia, small right pleural effusion and cardiomegaly. Patient had al elective cardioversion on 07/22/2024. Preprocedure transesophageal echocardiogram revealed mildly reduced LV systolic function. Subjective; Patient was examined at the bedside. Patient is awake alert and is feeling better with decreased shortness of breath. Mild leg edema is noted. Blood pressure is 104/71 and heart rate is 74 per minute. Good diuresis noted over 24 hours with negative balance of 1890 mL. Review of Systems Review of Systems: Twelve point review of system was completed. Pertinent positive and negative findings per HPI. Exam Narrative: Patient examined at bedside. Vital signs were reviewed. Head and neck examination unremarkable. Patient is awake alert oriented x3 without any acute distress . Neck is supple. There is No JVD or carotid bruit. There is enlargement. Lungs revealed decreased air entry bilaterally with fine crepitation. More on right than left. No wheezing or rhonchi. Abdomen is soft nontender. There is no hepatosplenomegaly probable sounds present 30 Extremities reveal mild bilateral leg edema. Neurological examination is intact without any focal neurological abnormalities. Psych is negative. Objective Data Vital Signs Vital Signs: Vital Signs - 24 hr 03/21/25 12:04 03/21/25 14:21 03/21/25 15:06 Temperature 36.3 C L Pulse Rate 67 91 83 Respiratory Rate 22 H 20 Blood Pressure 119/83 109/75 Pulse Oximetry 99 100 Oxygen Delivery Room Air 03/21/25 15:16 03/21/25 20:00 03/21/25 20:00 Temperature Pulse Rate 91 91 Respiratory Rate 18 Blood Pressure 103/65 Pulse Oximetry 100 Oxygen Delivery Room Air 03/21/25 20:13 03/22/25 00:00 03/22/25 04:00 Temperature 36.6 C Pulse Rate 100 84 74 Respiratory Rate 20 Blood Pressure 110/73 Pulse Oximetry 100 Oxygen Delivery 03/22/25 04:59 03/22/25 09:00 Temperature 36.2 C L Pulse Rate 67 Respiratory Rate 16 Blood Pressure 104/71 Pulse Oximetry 96 Oxygen Delivery Room Air Intake/Output Intake/Output: Intake & Output 03/19/25 03/20/25 03/21/25 03/22/25 22:59 23:59 23:59 23:59 Intake Total 400 660 Output Total 850 2100 Balance -450 -1440 Meds/Results Medications: Active Medications Generic Name Dose Route Start Last Admin Trade Name Freq PRN Reason Stop Dose Admin Hydrocodone Bitart/Acetaminophen 1 tab 03/21/25 21:01 Hydrocodone/Acetaminophen (*Crx) 5-325 Mg Tablet PO Q6H PRN Pain Apixaban 5 mg 03/21/25 21:10 03/22/25 09:02 Apixaban 5 Mg Tablet PO 5 mg Q12HR NHAN Administration Buspirone HCl 15 mg 03/22/25 09:00 03/22/25 09:02 Buspirone Hcl 5 Mg Tablet PO 15 mg DAILY NHAN Administration Furosemide 40 mg 03/22/25 09:00 03/22/25 09:03 Furosemide Inj 40 Mg/4 Ml Vial IV PUSH 40 mg BID NHAN Administration Nitroglycerin 0.4 mg 03/21/25 21:13 Nitroglycerin Sl 0.4 Mg Tablet SUBLINGUAL Q5MIN PRN Chest Pain Rosuvastatin Calcium 10 mg 03/21/25 21:15 03/21/25 21:41 Rosuvastatin 10 Mg Tablet PO 10 mg QHS NHAN Administration Radiology Results: ITS Impressions Chest X-Ray 03/21/25 14:31 Impression: 1: Right basilar infiltrate may represent atelectasis or pneumonia. 2: Small right pleural effusion. 3: Cardiomegaly. Labs Labs: Laboratory Results - last 24 hr 03/21/25 03/21/25 03/21/25 14:36 14:36 17:05 WBC 5.1 RBC 3.68 L Hgb 12.8 L Hct 39.3 L MCV 106.8 H MCH 34.8 H MCHC 32.6 RDW 14.8 H Plt Count 101 L MPV 10.9 H Immature Gran % (Auto) 0.2 Neut % (Auto) 58.4 Lymph % (Auto) 28.7 [place] % (Auto) 10.1 H Eos % (Auto) 1.4 Baso % (Auto) 1.2 Lymph # (Auto) 1.47 [place] # (Auto) 0.5 Eos # (Auto) 0.1 Baso # (Auto) 0.1 Abs Immat Gran (auto) 0.01 Absolute Neuts (auto) 3.0 Absolute Nucleated RBC 0.000 Band Neutrophils % Not Reportable Nucleated RBC % 0.0 Platelet Estimate Decreased Macrocytosis Occasional Ovalocytes 1+ Schistocytes None seen PT 18.5 H INR 1.5 APTT 36.6 Sodium 137 Potassium 4.2 Chloride 104 Carbon Dioxide 24 Anion Gap 9 BUN 35 H Creatinine 1.42 H Estim Creat Clear Calc 32 Estimated GFR 47 L Glucose 93 Calcium 9.3 Magnesium 2.0 Cancelled Total Bilirubin 2.5 H AST 45 ALT 28 Alkaline Phosphatase 123 Troponin I 0.155 H* 0.146 H* NT-Pro-B Natriuret Pep 64988 H Total Protein 6.8 Albumin 4.5 TSH (Reflex) Free T4 03/21/25 03/22/25 19:51 04:37 WBC 4.7 RBC 3.35 L Hgb 11.6 L Hct 35.8 L MCV 106.9 H MCH 34.6 H MCHC 32.4 RDW 14.6 H Plt Count 102 L MPV 11.1 H Immature Gran % (Auto) 0.2 Neut % (Auto) 51.0 Lymph % (Auto) 34.0 [place] % (Auto) 10.3 H Eos % (Auto) 3.2 Baso % (Auto) 1.3 H Lymph # (Auto) 1.59 [place] # (Auto) 0.5 Eos # (Auto) 0.2 Baso # (Auto) 0.1 Abs Immat Gran (auto) 0.01 Absolute Neuts (auto) 2.4 Absolute Nucleated RBC 0.000 Band Neutrophils % Not Reportable Nucleated RBC % 0.0 Platelet Estimate Decreased Macrocytosis Ovalocytes 1+ Schistocytes None seen PT INR APTT Sodium 136 L Potassium 3.8 Chloride 103 Carbon Dioxide 25 Anion Gap 8 BUN 34 H Creatinine 1.45 H Estim Creat Clear Calc 32 Estimated GFR 46 L Glucose 89 Calcium 8.8 Magnesium Total Bilirubin AST ALT Alkaline Phosphatase Troponin I 0.146 H* NT-Pro-B Natriuret Pep Total Protein Albumin TSH (Reflex) 4.790 H Free T4 1.31
[2025-03-22 13:39] LABS: Total Triiodothyronine (T3) 0.97 NG/ML (0.82-1.58)
--- NOTE | 2025-03-22 16:18 | PM.IMPN ---
Progress Note: A&P Assessment and Plan (1) Acute exacerbation of CHF (congestive heart failure): Qualifiers: Heart failure type: combined systolic and diastolic Qualified Code(s): I50.43 - Acute on chronic combined systolic (congestive) and diastolic (congestive) heart failure Code(s): I50.9 - Heart failure, unspecified Status: Acute Assessment and Plan: Concern for acute on chronic diastolic heart failure. Patient reporting worsening shortness of breath for the past 3 weeks that worsens with exertion. Reviewed chart, previous echo reviewed from 2021 which showed an EF of 58-55% with moderate concentric hypertrophy of the LV, moderate AV regurgitation, mild MV regurgitation. Recent MAGDALENA performed on07/22/24 which showed a mildly decreased LV systolic function with an estimated EF of 45% and grade 1 diastolic dysfunction with severe left atrial enlargement. - cardiology consulted, see note and recommendation - start IV diuresis HI Lasix 40 mg b.i.d. >> BP initially soft at 103/65 which may be limiting to diuresis. Will hold home antihypertensives including valsartan and hydrochlorothiazide. - monitor renal function - monitor electrolytes, correct as needed - monitor I&Os daily weights (2) Elevated troponin: Code(s): R77.8 - Other specified abnormalities of plasma proteins Status: Acute Assessment and Plan: Mildly elevated troponin that has been thus far flat (0.155 -> 0.146 -> 0.146). Previously elevated in 2021 between 0.141 and 0.162. May be chronic for patient due to history of CKD. Under Sheriff consulted, feels elevated troponin more likely chronic verses ACS. No current chest pain. Monitor. (3) A-fib: Qualifiers: Atrial fibrillation type: persistent (not longstanding) Qualified Code(s): I48.19 - Other persistent atrial fibrillation Code(s): I48.91 - Unspecified atrial fibrillation Status: Acute Assessment and Plan: Patient has history of chronic atrial fibrillation. Initial EKG showed AFib RVR, repeat EKG showed AFib with controlled ventricular response. Has history of cardioversion in August of 2024. - continue Eliquis - service center representative reaching out to patient's primary service center representative for clarification on patient's amiodarone, patient has history of pulmonary fibrosis possibly secondary to amiodarone. Also recommended TSH if not done recently, TSH 3.3 on 06/27/2024. Will update. - telemetry monitoring (4) Chronic kidney disease, stage 3: Qualifiers: Chronic kidney disease stage 3 subtype: unspecified whether 3a or 3b Qualified Code(s): N18.30 - Chronic kidney disease, stage 3 unspecified Code(s): N18.3 - Chronic kidney disease, stage 3 (moderate) Status: Acute Assessment and Plan: Patient has history pre of CKD, currently at baseline. Renal function upon admission: Creatinine 1.42, BUN 35, GFR 47. - trend renal function, started on IV diuresis (5) Essential hypertension: Code(s): I10 - Essential (primary) hypertension Status: Acute Assessment and Plan: - chronic, currently 110/73. - hold home medication (valsartan-hydrochlorothiazide) given the patient is started on IV diuresis and his pressure us on the low end of normal. - monitor Plan patient stats he feels little better and not as short of breath compared to when he came in, however patient lower extremities remain edematous, patient is being diuresed with IV Lasix. patient with history of A. fib for he is not taking his medications, when patient was ambulated his HR jump into 150-160 and tele showed he was in A, fib, will consult service center representative for further recommendation. will monitor. Diet: Heart healthy GI Prophylaxis: N/a DVT Prophylaxis: Eliquis IV fluids: None, diuresing Lines/Tubes: Peripheral IV Code Status: DNR Subjective Date/time seen: 03/22/25 16:18 Interval history: Weakness, Shortness of Breath H&P-Narrative: 89 y/o M with PMH of CAD, GERD, kidney stones, CKD stage 3, hypertension, hyperlipidemia, and atrial fibrillation presents here with weakness and shortness of breath. The patient presents here from home on 03/21 for further evaluation of generalized weakness and shortness of breath that has been ongoing for the past 3 weeks. He reports the shortness of breath has been gradually worsening and is exacerbated by exertion. He reports accompanying fatigue, intermittent dizziness, and swelling to his bilateral lower extremities. He reports the swelling to his bilateral lower extremities has been ongoing for some time, mostly noted at the end of the day due to noticing and intend where his sock line would be. He denies chest pain, palpitations, nausea, vomiting, or diuresis. He was initially evaluated by his PCP today for the symptoms, EKG showed atrial fibrillation with prolonged QTC. The patient has a history of atrial fibrillation on Eliquis for which she has previously underwent a cardioversion. He follows with a service center representative, Dr. Paris. Initial VS at presentation: 97.4? F, HR 67, R 22, 119/83, and 99% on RA. ED workup showed: No leukocytosis, hemoglobin 12.8 (11.7 on 06/27/2024), INR 1.5, no significant electrolyte derangements, creatinine 1.42 and GFR 47 (1.65 and GFR 40 on 06/27/2024), initial troponin 0.155 (similar to previous in 2021), BNP 86407. CXR showed right basilar infiltrate may be atelectasis or pneumonia, small right pleural effusion, cardiomegaly. Initial EKG showed atrial fibrillation with RVR, rate 107, incomplete right bundle branch block. patient stats he feels little better and not as short of breath compared to when he came in, however patient lower extremities remain edematous, patient is being diuresed with IV Lasix. patient with history of A. fib for he is not taking his medications, when patient was ambulated his HR jump into 150-160 and tele showed he was in A, fib, will consult service center representative for further recommendation. will monitor. Review of Systems Review of Systems: All systems reviewed & are unremarkable except as noted in HPI and below Exam Narrative: Patient is comfortable, NAD HEENT: eyes are clear and none icteric LUNGS:CTA HEART: RR S1S2 ABD: BS+, Soft and nontender Lower extremities: no edema SKIN: nonjaundiced Neuro: grossly intact. Objective Data Vital Signs Vital Signs: Vital Signs - 24 hr 03/21/25 20:00 03/21/25 20:00 03/21/25 20:13 Temperature 36.6 C Pulse Rate 91 100 Respiratory Rate 20 Blood Pressure 110/73 Pulse Oximetry 100 Oxygen Delivery Room Air 03/22/25 00:00 03/22/25 04:00 03/22/25 04:59 Temperature 36.2 C L Pulse Rate 84 74 67 Respiratory Rate 16 Blood Pressure 104/71 Pulse Oximetry 96 Oxygen Delivery 03/22/25 08:00 03/22/25 09:00 03/22/25 12:00 Temperature Pulse Rate 94 104 H Respiratory Rate Blood Pressure Pulse Oximetry Oxygen Delivery Room Air 03/22/25 14:24 Temperature 36.3 C L Pulse Rate 62 Respiratory Rate 18 Blood Pressure 102/73 Pulse Oximetry 99 Oxygen Delivery Intake/Output Intake/Output: Intake & Output 03/19/25 03/20/25 03/21/25 03/22/25 22:59 23:59 23:59 23:59 Intake Total 400 1900 Output Total 850 3250 Balance -450 -1350 Meds/Results Medications: Active Medications Generic Name Dose Route Start Last Admin Trade Name Freq PRN Reason Stop Dose Admin Hydrocodone Bitart/Acetaminophen 1 tab 03/21/25 21:01 Hydrocodone/Acetaminophen (*Crx) 5-325 Mg Tablet PO Q6H PRN Pain Amiodarone HCl 100 mg 03/23/25 08:00 Amiodarone Hcl 100 Mg Tablet PO DAILY@0800 NHAN Apixaban 5 mg 03/21/25 21:10 03/22/25 09:02 Apixaban 5 Mg Tablet PO 5 mg Q12HR NHAN Administration Buspirone HCl 15 mg 03/22/25 09:00 03/22/25 09:02 Buspirone Hcl 5 Mg Tablet PO 15 mg DAILY NHAN Administration Diltiazem HCl 30 mg 03/22/25 18:00 Diltiazem Hcl 30 Mg Tablet PO Q6HR NHAN Furosemide 40 mg 03/22/25 09:00 03/22/25 09:03 Furosemide Inj 40 Mg/4 Ml Vial IV PUSH 40 mg BID NHAN Administration Nitroglycerin 0.4 mg 03/21/25 21:13 Nitroglycerin Sl 0.4 Mg Tablet SUBLINGUAL Q5MIN PRN Chest Pain Perflutren Lipid Microsphere 0 ml 03/22/25 15:01 Perflutren Lipid Microspheres 1.5 Ml Vial Diluted To 10 Ml Total Volume IV PUSH 03/25/25 15:01 ONCE PRN adequate visualization Protocol Rosuvastatin Calcium 10 mg 03/21/25 21:15 03/21/25 21:41 Rosuvastatin 10 Mg Tablet PO 10 mg QHS NHAN Administration Radiology Results: ITS Impressions Chest X-Ray 03/21/25 14:31 Impression: 1: Right basilar infiltrate may represent atelectasis or pneumonia. 2: Small right pleural effusion. 3: Cardiomegaly. Labs Labs: Laboratory Results - last 24 hr 03/21/25 03/21/25 03/22/25 17:05 19:51 04:37 WBC 4.7 RBC 3.35 L Hgb 11.6 L Hct 35.8 L MCV 106.9 H MCH 34.6 H MCHC 32.4 RDW 14.6 H Plt Count 102 L MPV 11.1 H Immature Gran % (Auto) 0.2 Neut % (Auto) 51.0 Lymph % (Auto) 34.0 [place] % (Auto) 10.3 H Eos % (Auto) 3.2 Baso % (Auto) 1.3 H Lymph # (Auto) 1.59 [place] # (Auto) 0.5 Eos # (Auto) 0.2 Baso # (Auto) 0.1 Abs Immat Gran (auto) 0.01 Absolute Neuts (auto) 2.4 Absolute Nucleated RBC 0.000 Band Neutrophils % Not Reportable Nucleated RBC % 0.0 Platelet Estimate Decreased Ovalocytes 1+ Schistocytes None seen Sodium 136 L Potassium 3.8 Chloride 103 Carbon Dioxide 25 Anion Gap 8 BUN 34 H Creatinine 1.45 H Estim Creat Clear Calc 32 Estimated GFR 46 L Glucose 89 Calcium 8.8 Troponin I 0.146 H* 0.146 H* TSH (Reflex) 4.790 H Free T4 1.31 Total T3 0.97 Quality VTE Prophylaxis VTE prophylaxis: pharmacologic ordered
[2025-03-22] MEDS: ROSUVASTATIN 10 MG TABLET PO (20:42)
[2025-03-23] VITALS (21 sets, daily range): BP systolic 98–125; BP diastolic 62–81; PULSE 44–164; RESP 16–17; TEMP 36.6–36.9; O2SAT 95–100
--- NOTE | 2025-03-23 | ECHO_ITS ---
Patient Info Name: Jeronimo Guallpa Age: 89 years : 1935 Gender: Male Ht: 69 in Wt: 183 lbs BSA: 2.03 m2 HR: 81 bpm BP: 98 / 62 mmHg Technical Quality: Good Exam Date: 03/23/2025 11:32 AM Patient Status: I Admit Date: 03/21/2025 Exam Type: CA echo doppler color flow Complete two-dimensional, color flow and Doppler transthoracic echocardiogram is performed. Staff Referring Physician: Janette Funes Hunting Sales Leader: Shun Calix III Attending Provider: Johnathan Toure Oca Summary 1. Complete two-dimensional, color flow and Doppler transthoracic echocardiogram is performed. 2. The left ventricle is normal in size with mildly reduced systolic function. There is severe concentric left ventricular hypertrophy. The left ventricular ejection fraction is visually estimated to be 45-50%. 3. The right ventricle is normal in size with mildly reduced systolic function. 4. Dilated inferior vena cava with <50% collapse upon inspiration consistent with significantly elevated right atrial pressure, 15 mmHg. 5. There is a small size pericardial effusion. 6. There is severe biatrial enlargement. 7. Recommend to rule out infiltrative cardiomyopathy such as amyloidosis. Left Ventricle The left ventricle is normal in size with mildly reduced systolic function. There is severe concentric left ventricular hypertrophy. The left ventricular ejection fraction is visually estimated to be 45-50%. Right Ventricle The right ventricle is normal in size with mildly reduced systolic function. Left Atria The left atrium is severely dilated. Right Atria The right atrium is severely dilated. Atrial Septum The atrial septum is visually intact. Aortic Valve The aortic valve is trileaflet and sclerotic. There is no aortic stenosis. There is trace aortic regurgitation. Pulmonic Valve The pulmonic valve is normal. There is trace pulmonic valve regurgitation. Mitral Valve The mitral valve is normal. There is trace mitral regurgitation. Tricuspid Valve The tricuspid valve is normal. There is trace tricuspid regurgitation. Pericardium/Pleural There is a small size pericardial effusion. Inferior Vena Cava Dilated inferior vena cava with <50% collapse upon inspiration consistent with significantly elevated right atrial pressure, 15 mmHg. Aorta The aortic root at the level of the sinus of Valsalva measures 3.8 cm in diameter. Left Ventricular Outflow Tract Name Value Normal LVOT 2D LVOT Diameter 2.3 cm LVOT Doppler LVOT Peak Velocity 57 cm/s LVOT Peak Gradient 1 mmHg LVOT Mean Gradient 1 mmHg LVOT VTI 9 cm LVOT VTI/AV VTI Ratio 0.7 LVOT Stroke Volume 36 ml LVOT CO 3.1 l/min LVOT CI 1.5 l/min/m2 Pulmonic Valve Name Value Normal PV Doppler PV Peak Velocity 65 cm/s PV Peak Gradient 2 mmHg PV Mean Gradient 1 mmHg PV Regurgitation Doppler MT Peak End Diastolic Velocity 71 cm/s Mitral Valve Name Value Normal MV Doppler MV Peak Gradient 2 mmHg MV Mean Gradient 1 mmHg MV Area (Cont Eq VTI) 3.3 cm2 MV Diastolic Function MV E Peak Velocity 69 cm/s MV A Peak Velocity 2 cm/s MV E/A 41.1 MV Decel Time (PW) 196 ms MV Annular TDI MV E/e' (Septal) 26.4 MV E/e' (Lateral) 14.8 MV E/e' (Average) 20.6 Tricuspid Valve Name Value Normal Estimated PAP/RSVP RA Pressure 15 mmHg <=5 TV Annular TDI TV Lateral Farhana s' Velocity 10.2 cm/s >=9.5 Aortic Valve Name Value Normal AV Doppler AV Peak Velocity 84 cm/s AV Peak Gradient 3 mmHg AV Mean Gradient 2 mmHg AV VTI 12 cm AV Area (Cont Eq VTI) 3.0 cm2 >=3.0 AV Area (Cont Eq Michael) 2.9 cm2 AV DI (Michael) 0.68 AV Regurgitation 2D LVOT Area 4.3 cm2 Ventricles Name Value Normal LV Dimensions 2D/MM IVS Diastolic Thickness (2D) 2.0 cm 0.6-1.0 LVID Diastole (2D) 4.6 cm 4.2-5.8 LVIW Diastolic Thickness (2D) 1.8 cm 0.6-1.0 LVID Systole (2D) 4.0 cm 2.5-4.0 LVOT Diameter 2.3 cm LV Mass (2D Cubed) 411.87 g 88.00-224.00 LV Mass Index (2D Cubed) 203 g/m2 49-115 Relative Wall Thickness (2D) 0.80 <=0.42 LV Fractional Shortening/Ejection Fraction 2D/MM LV Fractional Shortening (2D) 13 % 25-43 LV EF (2D Teichholz) 29 % LV Diastolic Volume (4C MOD) 82 ml LV EF (4C MOD) 49 % LV Diastolic Volume (2C MOD) 83 ml LV EF (2C MOD) 34 % LV Diastolic Volume (BP MOD) 83 ml 62-150 LV Diastolic Volume Index (BP MOD) 41 ml/m2 34-74 LV Systolic Volume (BP MOD) 50 ml 21-61 LV Systolic Volume Index (BP MOD) 25 ml/m2 11-31 LV EF (BP MOD) 39 % 52-72 LV Diastolic Length (4C) 7.9 cm LV Systolic Length (4C) 6.8 cm LV Stroke Volume (4C MOD) 41 ml Atria Name Value Normal LA Dimensions LA Volume (4C A-L) 182 ml LA Volume (BP A-L) 158 ml RA Dimensions RA Systolic Major [place] Length (4C) 7.0 cm 2.1-2.7 RA Area (4C) 39.5 cm2 <=18.0 Report Signatures
[2025-03-23] MEDS: APIXABAN 5 MG TABLET PO ×2 (08:20→20:14)
[2025-03-23] MEDS: AMIODARONE HCL 100 MG TABLET PO (08:21)
[2025-03-23] MEDS: FUROSEMIDE INJ 40 MG/4 ML VIAL IV PUSH (08:21)
--- NOTE | 2025-03-23 11:04 | P.PNCA_ITS ---
Progress Note: A&P Assessment and Plan (1) A-fib: Qualifiers: Atrial fibrillation type: persistent (not longstanding) Qualified Code(s): I48.19 - Other persistent atrial fibrillation Code(s): I48.91 - Unspecified atrial fibrillation Status: Acute (2) ILD (interstitial lung disease): Code(s): J84.9 - Interstitial pulmonary disease, unspecified Status: Acute (3) Acute exacerbation of CHF (congestive heart failure): Qualifiers: Heart failure type: combined systolic and diastolic Qualified Code(s): I50.43 - Acute on chronic combined systolic (congestive) and diastolic (congestive) heart failure Code(s): I50.9 - Heart failure, unspecified Status: Acute (4) CATRINA (acute kidney injury): Code(s): N17.9 - Acute kidney failure, unspecified Status: Acute (5) Essential hypertension: Code(s): I10 - Essential (primary) hypertension Status: Acute (6) Chronic kidney disease, stage 3: Qualifiers: Chronic kidney disease stage 3 subtype: unspecified whether 3a or 3b Qualified Code(s): N18.30 - Chronic kidney disease, stage 3 unspecified Code(s): N18.3 - Chronic kidney disease, stage 3 (moderate) Status: Acute Plan Impression: 1. Patient with the known history of chronic atrial fibrillation presents with had increasing shortness of breath. Admitting EKG showed controlled ventricular response. Patient is on oral anticoagulation 2. History of electric cardioversion in August of 2024. 3. Acute on chronic diastolic heart failure. Previous echocardiogram has shown ejection fraction in the range of 50-55% with moderate concentric hypertrophy of the left ventricle. Moderate aortic regurgitation is also noted with mild mitral regurgitation. Recent PRIETO showed slightly decreased LV systolic function. Estimated ejection fraction was 45%. Patient is grade 1 diastolic dysfunction. Patient is severe left atrial enlargement. 4. 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 This has been discontinued as of July of 2024. However present home medication does include amiodarone 200 mg p.o. daily. 5. Elevated cardiac enzymes without transit testing acute coronary syndrome. Likely secondary to chronic go renal failure, stage IIIB. 6. Markedly elevated BNP likely secondary to acute on chronic diastolic heart failure. 7. History of hypertension, chronic kidney stones and mixed hyperlipidemia. Recommendations: #. All medications reviewed. Patient is on amiodarone 200 mg daily along with apixaban 5 mg b.i.d. at home or atrial fibrillation. EKG this morning reveals atrial fibrillation with controlled ventricular response at 92 per minute. -amiodarone decreased to 100 mg daily. #. Patient is on valsartan with hydrochlorothiazide 320/12.5 mg daily. Blood pressure is 111/70 mm of mercury. DC hydrochlorothiazide. Blood pressure is soft and no room for valsartan at this time. #. Question about amiodarone related pulmonary fibrosis in the past by CT scan. Will check with his primary manager mechanical maintenance. Currently heart rate is controlled. -continue to use minimally he required amiodarone does show. Decreased to 100 mg daily or 200 mg every other day. #. IV diuresis with Lasix 40 mg IV push b.i.d., continue with Eliquis 5 mg daily and rosuvastatin at night. Good diuresis overnight over 2600 mL. DC IV Lasix and change to p.o. Lasix 40 mg daily. BUN is 34 and creatinine is 1.45 as of today and stable. #. Code status is unknown. Conservative medical management would be prudent for this patient. #. Check thyroid function test on amiodarone if not done recently. TSH is high normal but free T4 is 1.3 which is normal. #. Clinically patient has improved though with good diuresis so. Will discontinue Lasix in the morning and increase activity. Prieto echo findings noted from July of 2024. Clinically patient is feeling much better from a has no shortness of breath or leg edema. Will switch to Lasix 40 mg p.o. daily and recommend to discharge this patient home. Continue with amiodarone 100 mg daily, diltiazem CD 120 mg daily, Lasix 40 mg daily and apixaban 5 mg b.i.d.. Rosuvastatin 10 mg at bedtime. DC hydrochlorothiazide and valsartan as blood pressure is soft. Subjective Date/time seen: 03/23/25 11:04 Interval history: Review of HPI; elham is a 89-year-old male admitted today with complaints of shortness of breath. Patient was seen in the primary physician office and subsequent EKG showed atrial fibrillation and was sent to the emergency room. Patient has history of atrial fibrillation treated with rate control and oral anticoagulation with Eliquis. Patient noted associated fatigue and intermittent dizziness. No complaints of chest pain, syncope, recent fever or chills. No complaints of abdominal pain, nausea vomiting or diarrhea Past medical history significant for coronary artery disease, hypertension, mixed hyperlipidemia, chronic stage 3 kidney disease and kidney stones Admitting blood pressure was 103/65 and heart rate was 91 per minute. Patient is afebrile and respirations 18 per minute. Admitting laboratory data revealed WBC count 5.1, hemoglobin 12.8 and platelets are 101 1000 Sodium 137, potassium is 4.2, BUN is 35, creatinine 1.4. Protime is 18.5 with INR of 1.5. Cardiac troponin 0.155 followed by 0.146. ProBNP was 56950. Admitting EKG revealed atrial fibrillation without 107 per minute and no other significant ST changes. Admitting chest x-ray revealed right basilar infiltrate suspicious for atelectasis or pneumonia, small right pleural effusion and cardiomegaly. Patient had al elective cardioversion on 07/22/2024. Preprocedure transesophageal echocardiogram revealed mildly reduced LV systolic function. Subjective; Patient was examined at the bedside. Patient is awake alert and is feeling better with decreased shortness of breath. Mild leg edema is noted. Blood pressure is 111/70 mm mercury. Heart rate is 88 per minute. Good diuresis noted over 24 hours with negative balance of 2600 mL. Review of Systems Review of Systems: Twelve point review of system was completed. Pertinent positive and negative findings per HPI. Exam Narrative: Patient examined at bedside. Vital signs were reviewed. Head and neck examination unremarkable. Patient is awake alert oriented x3 without any acute distress . Neck is supple. There is No JVD or carotid bruit. There is enlargement. Lungs revealed decreased air entry bilaterally with fine crepitation. More on right than left. No wheezing or rhonchi. Abdomen is soft nontender. There is no hepatosplenomegaly probable sounds present 30 Extremities reveal mild bilateral leg edema. Neurological examination is intact without any focal neurological abnormalities. Psych is negative. Objective Data Vital Signs Vital Signs: Vital Signs - 24 hr 03/22/25 12:00 03/22/25 14:24 03/22/25 16:00 Temperature 36.3 C L Pulse Rate 104 H 62 93 Respiratory Rate 18 Blood Pressure 102/73 Pulse Oximetry 99 Oxygen Delivery 03/22/25 17:47 03/22/25 20:00 03/22/25 20:00 Temperature Pulse Rate 92 97 Respiratory Rate Blood Pressure 118/57 L Pulse Oximetry Oxygen Delivery Room Air 03/22/25 21:01 03/22/25 23:15 03/23/25 00:00 Temperature 36.8 C 36.7 C Pulse Rate 82 78 75 Respiratory Rate 16 16 Blood Pressure 94/60 L 92/56 L Pulse Oximetry 94 100 Oxygen Delivery 03/23/25 04:00 03/23/25 05:10 03/23/25 08:00 Temperature 36.9 C Pulse Rate 88 81 107 H Respiratory Rate 16 Blood Pressure 98/62 L Pulse Oximetry 100 Oxygen Delivery 03/23/25 08:19 03/23/25 08:20 03/23/25 08:21 Temperature Pulse Rate 88 Respiratory Rate Blood Pressure 111/70 Pulse Oximetry Oxygen Delivery Room Air Intake/Output Intake/Output: Intake & Output 03/20/25 03/21/25 03/22/25 03/23/25 23:59 23:59 23:59 23:59 Intake Total 400 2140 320 Output Total 850 5250 1250 Balance -450 -3110 -930 Meds/Results Medications: Active Medications Generic Name Dose Route Start Last Admin Trade Name Freq PRN Reason Stop Dose Admin Hydrocodone Bitart/Acetaminophen 1 tab 03/21/25 21:01 Hydrocodone/Acetaminophen (*Crx) 5-325 Mg Tablet PO Q6H PRN Pain Amiodarone HCl 100 mg 03/23/25 08:00 03/23/25 08:21 Amiodarone Hcl 100 Mg Tablet PO 100 mg DAILY@0800 NHAN Administration Apixaban 5 mg 03/21/25 21:10 03/23/25 08:20 Apixaban 5 Mg Tablet PO 5 mg Q12HR NHAN Administration Buspirone HCl 15 mg 03/22/25 09:00 03/23/25 08:20 Buspirone Hcl 5 Mg Tablet PO 15 mg DAILY NHAN Administration Diltiazem HCl 30 mg 03/22/25 18:00 03/23/25 05:20 Diltiazem Hcl 30 Mg Tablet PO Not Given Q6HR NHAN Furosemide 40 mg 03/22/25 09:00 03/23/25 08:21 Furosemide Inj 40 Mg/4 Ml Vial IV PUSH 40 mg BID NHAN Administration Nitroglycerin 0.4 mg 03/21/25 21:13 Nitroglycerin Sl 0.4 Mg Tablet SUBLINGUAL Q5MIN PRN Chest Pain Perflutren Lipid Microsphere 0 ml 03/22/25 15:01 Perflutren Lipid Microspheres 1.5 Ml Vial Diluted To 10 Ml Total Volume IV PUSH 03/25/25 15:01 ONCE PRN adequate visualization Protocol Rosuvastatin Calcium 10 mg 03/21/25 21:15 03/22/25 20:42 Rosuvastatin 10 Mg Tablet PO 10 mg QHS NHAN Administration Radiology Results: ITS Impressions Chest X-Ray 03/21/25 14:31 Impression: 1: Right basilar infiltrate may represent atelectasis or pneumonia. 2: Small right pleural effusion. 3: Cardiomegaly. Labs Labs: Laboratory Results - last 24 hr 03/22/25 04:37 Total T3 0.97
--- NOTE | 2025-03-23 13:15 | P.PNIM_ITS ---
Progress Note: A&P Assessment and Plan (1) Acute exacerbation of CHF (congestive heart failure): Qualifiers: Heart failure type: combined systolic and diastolic Qualified Code(s): I50.43 - Acute on chronic combined systolic (congestive) and diastolic (congestive) heart failure Code(s): I50.9 - Heart failure, unspecified Status: Acute Assessment and Plan: Concern for acute on chronic diastolic heart failure. Patient reporting worsening shortness of breath for the past 3 weeks that worsens with exertion. Reviewed chart, previous echo reviewed from 2021 which showed an EF of 58-55% with moderate concentric hypertrophy of the LV, moderate AV regurgitation, mild MV regurgitation. Recent MAGDALENA performed on07/22/24 which showed a mildly decreased LV systolic function with an estimated EF of 45% and grade 1 diastolic dysfunction with severe left atrial enlargement. - cardiology consulted, see note and recommendation - start IV diuresis MT Lasix 40 mg b.i.d. >> BP initially soft at 103/65 which may be limiting to diuresis. Will hold home antihypertensives including valsartan and hydrochlorothiazide. - monitor renal function - monitor electrolytes, correct as needed - monitor I&Os daily weights (2) Elevated troponin: Code(s): R77.8 - Other specified abnormalities of plasma proteins Status: Acute Assessment and Plan: Mildly elevated troponin that has been thus far flat (0.155 -> 0.146 -> 0.146). Previously elevated in 2021 between 0.141 and 0.162. May be chronic for patient due to history of CKD. Packaging Line Operator consulted, feels elevated troponin more likely chronic verses ACS. No current chest pain. Monitor. (3) A-fib: Qualifiers: Atrial fibrillation type: persistent (not longstanding) Qualified Code(s): I48.19 - Other persistent atrial fibrillation Code(s): I48.91 - Unspecified atrial fibrillation Status: Acute Assessment and Plan: Patient has history of chronic atrial fibrillation. Initial EKG showed AFib RVR, repeat EKG showed AFib with controlled ventricular response. Has history of cardioversion in August of 2024. - continue Eliquis - director medical writing reaching out to patient's primary director medical writing for clarification on patient's amiodarone, patient has history of pulmonary fibrosis possibly secondary to amiodarone. Also recommended TSH if not done recently, TSH 3.3 on 06/27/2024. Will update. - telemetry monitoring (4) Chronic kidney disease, stage 3: Qualifiers: Chronic kidney disease stage 3 subtype: unspecified whether 3a or 3b Qualified Code(s): N18.30 - Chronic kidney disease, stage 3 unspecified Code(s): N18.3 - Chronic kidney disease, stage 3 (moderate) Status: Acute Assessment and Plan: Patient has history pre of CKD, currently at baseline. Renal function upon admission: Creatinine 1.42, BUN 35, GFR 47. - trend renal function, started on IV diuresis (5) Essential hypertension: Code(s): I10 - Essential (primary) hypertension Status: Acute Assessment and Plan: - chronic, currently 110/73. - hold home medication (valsartan-hydrochlorothiazide) given the patient is started on IV diuresis and his pressure us on the low end of normal. - monitor Plan patient stats he feels little better and not as short of breath compared to when he came in, however patient lower extremities remain edematous, patient is being diuresed with IV Lasix. patient with history of A. fib for he is not taking his medications, when patient was ambulated his HR jump into 150-160 and tele showed he was in A, fib, will consult director medical writing for further recommendation. will monitor. patient was seen by the director medical writing patient clinical symptoms are improving and he is well diuresed, will continue IV Lasix one more day and stop in the morning, director medical writing continued amiodarone 100mg qd, and diltiazem CD 120mg daily will continue apixabane 5mg BID, as well Crestor 10mg, patient clinical symptoms have improved will monitor and plan tomorrow for possible discharge. Diet: Heart healthy GI Prophylaxis: N/a DVT Prophylaxis: Eliquis IV fluids: None, diuresing Lines/Tubes: Peripheral IV Code Status: DNR Subjective Date/time seen: 03/23/25 13:15 Interval history: Weakness, Shortness of Breath H&P-Narrative: 89 y/o M with PMH of CAD, GERD, kidney stones, CKD stage 3, hypertension, hyp erlipidemia, and atrial fibrillation presents here with weakness and shortness of breath. The patient presents here from home on 03/21 for further evaluation of generalized weakness and shortness of breath that has been ongoing for the past 3 weeks. He reports the shortness of breath has been gradually worsening and is exacerbated by exertion. He reports accompanying fatigue, intermittent dizzi ness, and swelling to his bilateral lower extremities. He reports the swelling to his bilateral lower extremities has been ongoing for some time, mostly noted at the end of the day due to noticing and intend where his sock line would be. He denies chest pain, palpitations, nausea, vomiting, or diuresis. He was initially evaluated by his PCP today for the symptoms, EKG showed atrial fibrillation with prolonged QTC. The patient has a history of atrial fibrillation on Eliquis for which she has previously underwent a cardioversion. He follows with a director medical writing, Dr. Paris. Initial VS at presentation: 97.4? F, HR 67, R 22, 119/83, and 99% on RA. ED workup showed: No leukocytosis, hemoglobin 12.8 (11.7 on 06/27/2024), INR 1.5, no significant electrolyte derangements, creatinine 1.42 and GFR 47 (1.65 and GFR 40 on 06/27/2024), initial troponin 0.155 (similar to previous in 2021), BNP 64346. CXR showed right basilar infiltrate may be atelectasis or pneumonia, small right pleural effusion, cardiomegaly. Initial EKG showed atrial fibrillation with RVR, rate 107, incomplete right bundle branch block. patient stats he feels little better and not as short of breath compared to when he came in, however patient lower extremities remain edematous, patient is being diuresed with IV Lasix. patient with history of A. fib for he is not taking his medications, when patient was ambulated his HR jump into 150-160 and tele showed he was in A, fib, will consult director medical writing for further recommendation. will monitor. patient was seen by the director medical writing patient clinical symptoms are improving and he is well diuresed, will continue IV Lasix one more day and stop in the morning, director medical writing continued amiodarone 100mg qd, and diltiazem CD 120mg daily will continue apixabane 5mg BID, as well Crestor 10mg, patient clinical symptoms have improved will monitor and plan tomorrow for possible discharge. Review of Systems Review of Systems: All systems reviewed & are unremarkable except as noted in HPI and below Exam Narrative: Patient is comfortable, NAD HEENT: eyes are clear and none icteric LUNGS:CTA HEART: RR S1S2 ABD: BS+, Soft and nontender Lower extremities: no edema SKIN: nonjaundiced Neuro: grossly intact. Objective Data Vital Signs Vital Signs: Vital Signs - 24 hr 03/22/25 14:24 03/22/25 16:00 03/22/25 17:47 Temperature 36.3 C L Pulse Rate 62 93 92 Respiratory Rate 18 Blood Pressure 102/73 118/57 L Pulse Oximetry 99 Oxygen Delivery 03/22/25 20:00 03/22/25 20:00 03/22/25 21:01 Temperature 36.8 C Pulse Rate 97 82 Respiratory Rate 16 Blood Pressure 94/60 L Pulse Oximetry 94 Oxygen Delivery Room Air 03/22/25 23:15 03/23/25 00:00 03/23/25 04:00 Temperature 36.7 C Pulse Rate 78 75 88 Respiratory Rate 16 Blood Pressure 92/56 L Pulse Oximetry 100 Oxygen Delivery 03/23/25 05:10 03/23/25 08:00 03/23/25 08:19 Temperature 36.9 C Pulse Rate 81 107 H Respiratory Rate 16 Blood Pressure 98/62 L 111/70 Pulse Oximetry 100 Oxygen Delivery 03/23/25 08:20 03/23/25 08:21 Temperature Pulse Rate 88 Respiratory Rate Blood Pressure Pulse Oximetry Oxygen Delivery Room Air Intake/Output Intake/Output: Intake & Output 03/20/25 03/21/25 03/22/25 03/23/25 23:59 23:59 23:59 23:59 Intake Total 400 2140 320 Output Total 850 5250 1250 Balance -450 -6864 -930 Meds/Results Medications: Active Medications Generic Name Dose Route Start Last Admin Trade Name Freq PRN Reason Stop Dose Admin Hydrocodone Bitart/Acetaminophen 1 tab 03/21/25 21:01 Hydrocodone/Acetaminophen (*Crx) 5-325 Mg Tablet PO Q6H PRN Pain Amiodarone HCl 100 mg 03/23/25 08:00 03/23/25 08:21 Amiodarone Hcl 100 Mg Tablet PO 100 mg DAILY@0800 NHAN Administration Apixaban 5 mg 03/21/25 21:10 03/23/25 08:20 Apixaban 5 Mg Tablet PO 5 mg Q12HR NHAN Administration Buspirone HCl 15 mg 03/22/25 09:00 03/23/25 08:20 Buspirone Hcl 5 Mg Tablet PO 15 mg DAILY NHAN Administration Diltiazem HCl 120 mg 03/24/25 09:00 Diltiazem Hcl Cd 120 Mg Cap.24hr PO QAM NHAN Docusate Sodium 100 mg 03/23/25 21:00 Docusate Sodium 100 Mg Capsule PO Q12HR [facility] Furosemide 40 mg 03/24/25 09:00 Furosemide 40 Mg Tablet PO DAILY NHAN Nitroglycerin 0.4 mg 03/21/25 21:13 Nitroglycerin Sl 0.4 Mg Tablet SUBLINGUAL Q5MIN PRN Chest Pain Perflutren Lipid Microsphere 0 ml 03/22/25 15:01 Perflutren Lipid Microspheres 1.5 Ml Vial Diluted To 10 Ml Total Volume IV PUSH 03/25/25 15:01 ONCE PRN adequate visualization Protocol Rosuvastatin Calcium 10 mg 03/21/25 21:15 03/22/25 20:42 Rosuvastatin 10 Mg Tablet PO 10 mg QHS NHAN Administration Radiology Results: ITS Impressions Chest X-Ray 03/21/25 14:31 Impression: 1: Right basilar infiltrate may represent atelectasis or pneumonia. 2: Small right pleural effusion. 3: Cardiomegaly. Labs Labs: Laboratory Results - last 24 hr 03/22/25 04:37 Total T3 0.97 Quality VTE Prophylaxis VTE prophylaxis: pharmacologic ordered
[2025-03-23] MEDS: DOCUSATE SODIUM 100 MG CAPSULE PO (20:14)
[2025-03-23] MEDS: ROSUVASTATIN 10 MG TABLET PO (20:15)
[2025-03-24] VITALS (14 sets, daily range): BP systolic 98–120; BP diastolic 58–89; PULSE 71–111; RESP 16–20; TEMP 36.3–36.9; O2SAT 97–100
[2025-03-24] MEDS: FUROSEMIDE 40 MG TABLET PO (09:14)
[2025-03-24] MEDS: APIXABAN 5 MG TABLET PO ×2 (09:14→20:54)
[2025-03-24] MEDS: DOCUSATE SODIUM 100 MG CAPSULE PO ×2 (09:14→20:52)
[2025-03-24] MEDS: dilTIAZem HCL CD 120 MG CAP.24HR PO (09:23)
[2025-03-24] MEDS: AMIODARONE HCL 100 MG TABLET PO (09:23)
--- NOTE | 2025-03-24 13:12 | P.PNCA_ITS ---
Progress Note: A&P Assessment and Plan (1) A-fib: Qualifiers: Atrial fibrillation type: persistent (not longstanding) Qualified Code(s): I48.19 - Other persistent atrial fibrillation Code(s): I48.91 - Unspecified atrial fibrillation Status: Acute (2) ILD (interstitial lung disease): Code(s): J84.9 - Interstitial pulmonary disease, unspecified Status: Acute (3) Acute exacerbation of CHF (congestive heart failure): Qualifiers: Heart failure type: combined systolic and diastolic Qualified Code(s): I50.43 - Acute on chronic combined systolic (congestive) and diastolic (congestive) heart failure Code(s): I50.9 - Heart failure, unspecified Status: Acute (4) CATRINA (acute kidney injury): Code(s): N17.9 - Acute kidney failure, unspecified Status: Acute (5) Essential hypertension: Code(s): I10 - Essential (primary) hypertension Status: Acute (6) Chronic kidney disease, stage 3: Qualifiers: Chronic kidney disease stage 3 subtype: unspecified whether 3a or 3b Qualified Code(s): N18.30 - Chronic kidney disease, stage 3 unspecified Code(s): N18.3 - Chronic kidney disease, stage 3 (moderate) Status: Acute Plan Impression: 1. Patient with the known history of chronic atrial fibrillation presents with had increasing shortness of breath. Admitting EKG showed controlled ventricular response. Patient is on oral anticoagulation 2. History of electric cardioversion in August of 2024. 3. Acute on chronic diastolic heart failure. Previous echocardiogram has shown ejection fraction in the range of 50-55% with moderate concentric hypertrophy of the left ventricle. Moderate aortic regurgitation is also noted with mild mitral regurgitation. Recent PRIETO showed slightly decreased LV systolic function. Estimated ejection fraction was 45%. Patient is grade 1 diastolic dysfunction. Patient is severe left atrial enlargement. 4. 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 This has been discontinued as of July of 2024. However present home medication does include amiodarone 200 mg p.o. daily. 5. Elevated cardiac enzymes without transit testing acute coronary syndrome. Likely secondary to chronic go renal failure, stage IIIB. 6. Markedly elevated BNP likely secondary to acute on chronic diastolic heart failure. 7. History of hypertension, chronic kidney stones and mixed hyperlipidemia. Recommendations: #. All medications reviewed. Patient is on amiodarone 200 mg daily along with apixaban 5 mg b.i.d. at home for atrial fibrillation. -amiodarone was decreased to 100 mg daily, but recurrent RVR will resume home 200 mg daily dose #. Patient is on valsartan with hydrochlorothiazide 320/12.5 mg daily. -this has been placed on hold d/t hypotension #. Question about amiodarone related pulmonary fibrosis in the past by CT scan. -continue to use minimally required amiodarone. can consider transition to sotalol or EP referral for his atrial fibrillation #. IV diuresis with Lasix 40 mg IV push b.i.d., continue with Eliquis 5 mg daily and rosuvastatin at night. -now on PO lasix will decrease to 20 mg daily to allow enough BP for rate controlling agents # had short 9 beat run of NSVT. attempt to add BB and monitor and replace lytes as needed. #. Code status is unknown. Conservative medical management would be prudent for this patient. #. TSH is high normal but free T4 is 1.3 which is normal. #. Clinically patient has improved though with good diuresis so Prieto echo findings noted from July of 2024. Subjective Date/time seen: 03/24/25 13:12 Interval history: Date of Service 03/24/2025: Patient is sitting up in bed and overall feeling well. No c/o any chest pain or shortness of breath. No dizziness or palpitations. Review of Systems Review of Systems: All systems reviewed & are unremarkable except as noted in HPI and below Exam Narrative: Patient examined at bedside. Vital signs were reviewed. Head and neck examination unremarkable. Patient is awake alert oriented x3 without any acute distress Neck is supple. There is No JVD or carotid bruit. Lungs revealed decreased air entry bilaterally with fine crepitation. More on right than left. No wheezing or rhonchi. CV irreg irreg Abdomen is soft nontender. There is no hepatosplenomegaly Extremities reveal mild bilateral leg edema. Neurological examination is intact without any focal neurological abnormalities. Psych is negative. Objective Data Vital Signs Vital Signs: Vital Signs - 24 hr 03/23/25 14:00 03/23/25 14:24 03/23/25 14:26 Temperature 36.6 C Pulse Rate 90 48 L 88 Respiratory Rate 17 Blood Pressure 110/68 Pulse Oximetry 100 Oxygen Delivery 03/23/25 14:33 03/23/25 14:34 03/23/25 16:00 Temperature Pulse Rate 44 L 89 96 Respiratory Rate Blood Pressure Pulse Oximetry Oxygen Delivery 03/23/25 20:00 03/23/25 20:00 03/23/25 22:00 Temperature 36.7 C Pulse Rate 89 90 Respiratory Rate 16 Blood Pressure 125/81 Pulse Oximetry 95 Oxygen Delivery Room Air 03/24/25 00:00 03/24/25 04:00 03/24/25 05:41 Temperature 36.9 C Pulse Rate 107 H 80 77 Respiratory Rate 16 Blood Pressure 101/66 Pulse Oximetry 100 Oxygen Delivery 03/24/25 08:00 03/24/25 09:23 03/24/25 09:23 Temperature Pulse Rate 90 Respiratory Rate Blood Pressure 108/58 L Pulse Oximetry Oxygen Delivery Room Air 03/24/25 11:30 03/24/25 12:23 03/24/25 12:23 Temperature Pulse Rate 90 Respiratory Rate Blood Pressure 100/60 98/58 L Pulse Oximetry Oxygen Delivery Intake/Output Intake/Output: Intake & Output 03/21/25 03/22/25 03/23/25 03/24/25 23:59 23:59 23:59 23:59 Intake Total 400 2140 800 830 Output Total [address] [place], [place] [id number] [phone] Meds/Results Medications: Active Medications Generic Name Dose Route Start Last Admin Trade Name Freq PRN Reason Stop Dose Admin Hydrocodone Bitart/Acetaminophen 1 tab 03/21/25 21:01 Hydrocodone/Acetaminophen (*Crx) 5-325 Mg Tablet PO Q6H PRN Pain Amiodarone HCl 100 mg 03/23/25 08:00 03/24/25 09:23 Amiodarone Hcl 100 Mg Tablet PO 100 mg DAILY@0800 NHAN Administration Apixaban 5 mg 03/21/25 21:10 03/24/25 09:14 Apixaban 5 Mg Tablet PO 5 mg Q12HR NHAN Administration Buspirone HCl 15 mg 03/22/25 09:00 03/24/25 09:14 Buspirone Hcl 5 Mg Tablet PO 15 mg DAILY NHAN Administration Diltiazem HCl 120 mg 03/24/25 09:00 03/24/25 09:23 Diltiazem Hcl Cd 120 Mg Cap.24hr PO 120 mg QAM NHAN Administration Docusate Sodium 100 mg 03/23/25 21:00 03/24/25 09:14 Docusate Sodium 100 Mg Capsule PO 100 mg Q12HR NHAN Administration Furosemide 40 mg 03/24/25 09:00 03/24/25 09:14 Furosemide 40 Mg Tablet PO 40 mg DAILY NHAN Administration Lidocaine 1 patch 03/24/25 12:20 Lidocaine 5% Patch TRANSDERM DAILY [facility] Metoprolol Tartrate 12.5 mg 03/24/25 12:10 03/24/25 12:23 Metoprolol Tartrate 12.5 Mg Tablet PO Not Given Q12HR [facility] Nitroglycerin 0.4 mg 03/21/25 21:13 Nitroglycerin Sl 0.4 Mg Tablet SUBLINGUAL Q5MIN PRN Chest Pain Perflutren Lipid Microsphere 0 ml 03/22/25 15:01 Perflutren Lipid Microspheres 1.5 Ml Vial Diluted To 10 Ml Total Volume IV PUSH 03/25/25 15:01 ONCE PRN adequate visualization Protocol Rosuvastatin Calcium 10 mg 03/21/25 21:15 03/23/25 20:15 Rosuvastatin 10 Mg Tablet PO 10 mg QHS NHAN Administration Radiology Results: ITS Impressions Chest X-Ray 03/21/25 14:31 Impression: 1: Right basilar infiltrate may represent atelectasis or pneumonia. 2: Small right pleural effusion. 3: Cardiomegaly.
[2025-03-24 13:17] LABS: Magnesium 1.8 mg/dL (1.6-2.3)
--- NOTE | 2025-03-24 13:47 | PM.DS ---
DS: Summary Time Spent with Patient Time attestation: Total time spent providing and/or coordinating discharge services: DS: Data Data Completed and Pending Labs on day of discharge: Labs from last 24 hours 03/24/25 12:46 Magnesium 1.8 Discharge Plan Discharge Attending physician on discharge: Johnathan Isaac Oca Consulting providers: Kirby Back Discharging Clinician: Cha Pompa Patient Disposition: Home Activity: as tolerated Diet: heart healthy Discharge Instructions: Patient to follow up with his tight barrel inspector and primary care provider as soon as possible, patient is instructed if any symptoms worsen to go to nearest ER Patient Instructions: Antibiotic Form, Apixaban (By mouth), Heart Failure (GEN) Patient Language: Danish Stand Alone Forms: General Discharge Information Follow-up/Referrals: Malini,Ruth Vargas MD [Primary Care Provider, Unknown] Kirby Back MD [Physician, Cardiology] Discharge Medications: New amiodarone 100 mg tablet 100 mg PO DAILY Qty: 30 0RF docusate sodium 100 mg Capsule 100 mg PO Q12HR Qty: 60 0RF diltiazem HCl 120 mg Capsule,Extended Release 24 Hr 120 mg PO QAM Qty: 30 0RF lidocaine [Lidoderm] 5 % Adhesive Patch,Medicated 1 patch transdermal DAILY Qty: 15 0RF furosemide [Lasix] 40 mg tablet 40 mg PO DAILY Qty: 30 0RF Continued Eliquis 5 mg tablet 5 mg PO BID nitroglycerin 0.4 mg tablet, sublingual See Rx Instructions .ROUTE .COMPLEX PRN (Reason: Chest Pain) Rx Instructions: 0.4 mg sublingually every 5 minutes up to 3 doses for chest pain buspirone 15 mg tablet 15 mg PO DAILY hydrocodone-acetaminophen 5-325 mg tablet 1 tablet PO QID PRN (Reason: pain) rosuvastatin [Crestor] 20 mg tablet 10 mg PO QPM Discontinued valsartan-hydrochlorothiazide [Diovan HCT] 320-12.5 mg tablet 1 tablet PO DAILY Qty: 90 1RF Date of admission: 03/21/25 15:32 Primary Care Provider: Malini,Ruth Vargas Admitting Provider: Johnathan Isaac Oca Attending physician on admission: Johnathan Isaac Oca Condition: Stable
--- NOTE | 2025-03-24 14:13 | PM.IMPN ---
Progress Note: A&P Assessment and Plan (1) Acute exacerbation of CHF (congestive heart failure): Qualifiers: Heart failure type: combined systolic and diastolic Qualified Code(s): I50.43 - Acute on chronic combined systolic (congestive) and diastolic (congestive) heart failure Code(s): I50.9 - Heart failure, unspecified Status: Acute Assessment and Plan: Concern for acute on chronic diastolic heart failure. Patient reporting worsening shortness of breath for the past 3 weeks that worsens with exertion. Reviewed chart, previous echo reviewed from 2021 which showed an EF of 58-55% with moderate concentric hypertrophy of the LV, moderate AV regurgitation, mild MV regurgitation. Recent MAGDALENA performed on07/22/24 which showed a mildly decreased LV systolic function with an estimated EF of 45% and grade 1 diastolic dysfunction with severe left atrial enlargement. - cardiology consulted, see note and recommendation - start IV diuresis CA Lasix 40 mg b.i.d. >> BP initially soft at 103/65 which may be limiting to diuresis. Will hold home antihypertensives including valsartan and hydrochlorothiazide. - monitor renal function - monitor electrolytes, correct as needed - monitor I&Os daily weights (2) Elevated troponin: Code(s): R77.8 - Other specified abnormalities of plasma proteins Status: Acute Assessment and Plan: Mildly elevated troponin that has been thus far flat (0.155 -> 0.146 -> 0.146). Previously elevated in 2021 between 0.141 and 0.162. May be chronic for patient due to history of CKD. Social Media Senior Associate consulted, feels elevated troponin more likely chronic verses ACS. No current chest pain. Monitor. (3) A-fib: Qualifiers: Atrial fibrillation type: persistent (not longstanding) Qualified Code(s): I48.19 - Other persistent atrial fibrillation Code(s): I48.91 - Unspecified atrial fibrillation Status: Acute Assessment and Plan: Patient has history of chronic atrial fibrillation. Initial EKG showed AFib RVR, repeat EKG showed AFib with controlled ventricular response. Has history of cardioversion in August of 2024. - continue Eliquis - ice sculptor reaching out to patient's primary ice sculptor for clarification on patient's amiodarone, patient has history of pulmonary fibrosis possibly secondary to amiodarone. Also recommended TSH if not done recently, TSH 3.3 on 06/27/2024. Will update. - telemetry monitoring (4) Chronic kidney disease, stage 3: Qualifiers: Chronic kidney disease stage 3 subtype: unspecified whether 3a or 3b Qualified Code(s): N18.30 - Chronic kidney disease, stage 3 unspecified Code(s): N18.3 - Chronic kidney disease, stage 3 (moderate) Status: Acute Assessment and Plan: Patient has history pre of CKD, currently at baseline. Renal function upon admission: Creatinine 1.42, BUN 35, GFR 47. - trend renal function, started on IV diuresis (5) Essential hypertension: Code(s): I10 - Essential (primary) hypertension Status: Acute Assessment and Plan: - chronic, currently 110/73. - hold home medication (valsartan-hydrochlorothiazide) given the patient is started on IV diuresis and his pressure us on the low end of normal. - monitor Plan patient was seen by the ice sculptor patient clinical symptoms are improving and he is well diuresed, will continue IV Lasix one more day and stop in the morning, ice sculptor reduce amiodarone 100mg qd, however patient has tachycardia with exertion today it was increase back to 200mg, and diltiazem CD 120mg daily will continue apixaban 5mg BID, as well Crestor 10mg, patient clinical symptoms valsartan and HCTZ are on due to hypotension, today patient old injury to left shoulder having pain in his left shoulder, will apply Lidocaine patche, will monitor and plan tomorrow for possible discharge. patient stats he feels little better and not as short of breath compared to when he came in, however patient lower extremities remain edematous, patient is being diuresed with IV Lasix. patient with history of A. fib for he is not taking his medications, when patient was ambulated his HR jump into 150-160 and tele showed he was in A, fib, will consult ice sculptor for further recommendation. will monitor. patient was seen by the ice sculptor patient clinical symptoms are improving and he is well diuresed, will continue IV Lasix one more day and stop in the morning, ice sculptor continued amiodarone 100mg qd, and diltiazem CD 120mg daily will continue apixabane 5mg BID, as well Crestor 10mg, patient clinical symptoms have improved will monitor and plan tomorrow for possible discharge. Diet: Heart healthy GI Prophylaxis: N/a DVT Prophylaxis: Eliquis IV fluids: None, diuresing Lines/Tubes: Peripheral IV Code Status: DNR Subjective Date/time seen: 03/24/25 14:13 Interval history: Weakness, Shortness of Breath H&P-Narrative: 89 y/o M with PMH of CAD, GERD, kidney stones, CKD stage 3, hypertension, hyperlipidemia, and atrial fibrillation presents here with weakness and shortness of breath. The patient presents here from home on 03/21 for further evaluation of generalized weakness and shortness of breath that has been ongoing for the past 3 weeks. He reports the shortness of breath has been gradually worsening and is exacerbated by exertion. He reports accompanying fatigue, intermittent dizziness, and swelling to his bilateral lower extremities. He reports the swelling to his bilateral lower extremities has been ongoing for some time, mostly noted at the end of the day due to noticing and intend where his sock line would be. He denies chest pain, palpitations, nausea, vomiting, or diuresis. He was initially evaluated by his PCP today for the symptoms, EKG showed atrial fibrillation with prolonged QTC. The patient has a history of atrial fibrillation on Eliquis for which she has previously underwent a cardioversion. He follows with a ice sculptor, Dr. Paris. Initial VS at presentation: 97.4? F, HR 67, R 22, 119/83, and 99% on RA. ED workup showed: No leukocytosis, hemoglobin 12.8 (11.7 on 06/27/2024), INR 1.5, no significant electrolyte derangements, creatinine 1.42 and GFR 47 (1.65 and GFR 40 on 06/27/2024), initial troponin 0.155 (similar to previous in 2021), BNP 83638. CXR showed right basilar infiltrate may be atelectasis or pneumonia, small right pleural effusion, cardiomegaly. Initial EKG showed atrial fibrillation with RVR, rate 107, incomplete right bundle branch block. patient stats he feels little better and not as short of breath compared to when he came in, however patient lower extremities remain edematous, patient is being diuresed with IV Lasix. patient with history of A. fib for he is not taking his medications, when patient was ambulated his HR jump into 150-160 and tele showed he was in A, fib, will consult ice sculptor for further recommendation. will monitor. patient was seen by the ice sculptor patient clinical symptoms are improving and he is well diuresed, will continue IV Lasix one more day and stop in the morning, ice sculptor reduce amiodarone 100mg qd, however patient has tachycardia with exertion today it was increase back to 200mg, and diltiazem CD 120mg daily will continue apixaban 5mg BID, as well Crestor 10mg, patient clinical symptoms valsartan and HCTZ are on due to hypotension, today patient old injury to left shoulder having pain in his left shoulder, will apply Lidocaine patche, will monitor and plan tomorrow for possible discharge. Review of Systems Review of Systems: All systems reviewed & are unremarkable except as noted in HPI and below Exam Narrative: Patient is comfortable, NAD HEENT: eyes are clear and none icteric LUNGS:CTA HEART: RR S1S2 ABD: BS+, Soft and nontender Lower extremities: no edema SKIN: nonjaundiced Neuro: grossly intact. Objective Data Vital Signs Vital Signs: Vital Signs - 24 hr 03/23/25 14:24 03/23/25 14:26 03/23/25 14:33 Temperature Pulse Rate 48 L 88 44 L Respiratory Rate Blood Pressure Pulse Oximetry Oxygen Delivery 03/23/25 14:34 03/23/25 16:00 03/23/25 20:00 Temperature Pulse Rate 89 96 Respiratory Rate Blood Pressure Pulse Oximetry Oxygen Delivery Room Air 03/23/25 20:00 03/23/25 22:00 03/24/25 00:00 Temperature 36.7 C Pulse Rate 89 90 107 H Respiratory Rate 16 Blood Pressure 125/81 Pulse Oximetry 95 Oxygen Delivery 03/24/25 04:00 03/24/25 05:41 03/24/25 08:00 Temperature 36.9 C Pulse Rate 80 77 Respiratory Rate 16 Blood Pressure 101/66 Pulse Oximetry 100 Oxygen Delivery Room Air 03/24/25 09:23 03/24/25 09:23 03/24/25 11:30 Temperature Pulse Rate 90 Respiratory Rate Blood Pressure 108/58 L 100/60 Pulse Oximetry Oxygen Delivery 03/24/25 12:23 03/24/25 12:23 Temperature Pulse Rate 90 Respiratory Rate Blood Pressure 98/58 L Pulse Oximetry Oxygen Delivery Intake/Output Intake/Output: Intake & Output 03/21/25 03/22/25 03/23/25 03/24/25 23:59 23:59 23:59 23:59 Intake Total 400 2140 800 1070 Output Total 850 5250 1950 Balance -450 -0286 -1154 1070 Meds/Results Medications: Active Medications Generic Name Dose Route Start Last Admin Trade Name Freq PRN Reason Stop Dose Admin Hydrocodone Bitart/Acetaminophen 1 tab 03/21/25 21:01 Hydrocodone/Acetaminophen (*Crx) 5-325 Mg Tablet PO Q6H PRN Pain Amiodarone HCl 200 mg 03/25/25 08:00 Amiodarone Hcl 200 Mg Tablet PO DAILY@0800 NHAN Apixaban 5 mg 03/21/25 21:10 03/24/25 09:14 Apixaban 5 Mg Tablet PO 5 mg Q12HR NHAN Administration Buspirone HCl 15 mg 03/22/25 09:00 03/24/25 09:14 Buspirone Hcl 5 Mg Tablet PO 15 mg DAILY NHAN Administration Diltiazem HCl 120 mg 03/24/25 09:00 03/24/25 09:23 Diltiazem Hcl Cd 120 Mg Cap.24hr PO 120 mg QAM NHAN Administration Docusate Sodium 100 mg 03/23/25 21:00 03/24/25 09:14 Docusate Sodium 100 Mg Capsule PO 100 mg Q12HR NHAN Administration Furosemide 20 mg 03/25/25 09:00 Furosemide 20 Mg Tablet PO DAILY NHAN Magnesium Sulfate 2 gm in 50 mls @ 25 mls/hr 03/24/25 13:28 Magnesium Sulf 2 Gm/Water 50ml IVPB 03/24/25 15:27 ONCE ONE Lidocaine 1 patch 03/24/25 12:20 Lidocaine 5% Patch TRANSDERM DAILY NHAN Metoprolol Tartrate 12.5 mg 03/24/25 12:10 03/24/25 12:23 Metoprolol Tartrate 12.5 Mg Tablet PO Not Given Q12HR NHAN Nitroglycerin 0.4 mg 03/21/25 21:13 Nitroglycerin Sl 0.4 Mg Tablet SUBLINGUAL Q5MIN PRN Chest Pain Perflutren Lipid Microsphere 0 ml 03/22/25 15:01 Perflutren Lipid Microspheres 1.5 Ml Vial Diluted To 10 Ml Total Volume IV PUSH 03/25/25 15:01 ONCE PRN adequate visualization Protocol Rosuvastatin Calcium 10 mg 03/21/25 21:15 03/23/25 20:15 Rosuvastatin 10 Mg Tablet PO 10 mg QHS NHAN Administration Radiology Results: ITS Impressions Chest X-Ray 03/21/25 14:31 Impression: 1: Right basilar infiltrate may represent atelectasis or pneumonia. 2: Small right pleural effusion. 3: Cardiomegaly. Labs Labs: Laboratory Results - last 24 hr 03/24/25 12:46 Magnesium 1.8 Quality VTE Prophylaxis VTE prophylaxis: pharmacologic ordered
[2025-03-24] MEDS: MAGNESIUM SULF 2 GM/WATER 50ML 2 GM/50 ML BAG IVPB (15:22)
[2025-03-24] MEDS: ROSUVASTATIN 10 MG TABLET PO (20:54)
[2025-03-25] VITALS (11 sets, daily range): BP systolic 91–118; BP diastolic 55–78; PULSE 66–99; RESP 18–20; TEMP 36.6–36.9; O2SAT 98–100
[2025-03-25] MEDS: AMIODARONE HCL 200 MG TABLET PO (08:52)
[2025-03-25] MEDS: DOCUSATE SODIUM 100 MG CAPSULE PO ×2 (08:52→20:26)
[2025-03-25] MEDS: APIXABAN 5 MG TABLET PO ×2 (08:53→20:25)
[2025-03-25] MEDS: dilTIAZem HCL CD 120 MG CAP.24HR PO (08:53)
[2025-03-25] MEDS: FUROSEMIDE 20 MG TABLET PO (08:53)
[2025-03-25] MEDS: METOPROLOL TARTRATE 12.5 MG TABLET PO (09:06)
--- NOTE | 2025-03-25 12:16 | PM.IMPN ---
Progress Note: A&P Assessment and Plan (1) Acute exacerbation of CHF (congestive heart failure): Qualifiers: Heart failure type: combined systolic and diastolic Qualified Code(s): I50.43 - Acute on chronic combined systolic (congestive) and diastolic (congestive) heart failure Code(s): I50.9 - Heart failure, unspecified Status: Acute Assessment and Plan: Concern for acute on chronic diastolic heart failure. Patient reporting worsening shortness of breath for the past 3 weeks that worsens with exertion. Reviewed chart, previous echo reviewed from 2021 which showed an EF of 58-55% with moderate concentric hypertrophy of the LV, moderate AV regurgitation, mild MV regurgitation. Recent MAGDALENA performed on07/22/24 which showed a mildly decreased LV systolic function with an estimated EF of 45% and grade 1 diastolic dysfunction with severe left atrial enlargement. - cardiology consulted, see note and recommendation - start IV diuresis MN Lasix 40 mg b.i.d. >> BP initially soft at 103/65 which may be limiting to diuresis. Will hold home antihypertensives including valsartan and hydrochlorothiazide. - monitor renal function - monitor electrolytes, correct as needed - monitor I&Os daily weights (2) Elevated troponin: Code(s): R77.8 - Other specified abnormalities of plasma proteins Status: Acute Assessment and Plan: Mildly elevated troponin that has been thus far flat (0.155 -> 0.146 -> 0.146). Previously elevated in 2021 between 0.141 and 0.162. May be chronic for patient due to history of CKD. [employer] consulted, feels elevated troponin more likely chronic verses ACS. No current chest pain. Monitor. (3) A-fib: Qualifiers: Atrial fibrillation type: persistent (not longstanding) Qualified Code(s): I48.19 - Other persistent atrial fibrillation Code(s): I48.91 - Unspecified atrial fibrillation Status: Acute Assessment and Plan: Patient has history of chronic atrial fibrillation. Initial EKG showed AFib RVR, repeat EKG showed AFib with controlled ventricular response. Has history of cardioversion in August of 2024. 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 Also recommended TSH if not done recently, TSH 3.3 on 06/27/2024. Will update. - telemetry monitoring (4) Chronic kidney disease, stage 3: Qualifiers: Chronic kidney disease stage 3 subtype: unspecified whether 3a or 3b Qualified Code(s): N18.30 - Chronic kidney disease, stage 3 unspecified Code(s): N18.3 - Chronic kidney disease, stage 3 (moderate) Status: Acute Assessment and Plan: Patient has history pre of CKD, currently at baseline. Renal function upon admission: Creatinine 1.42, BUN 35, GFR 47. - trend renal function, started on IV diuresis (5) Essential hypertension: Code(s): I10 - Essential (primary) hypertension Status: Acute Assessment and Plan: - chronic, currently 110/73. - hold home medication (valsartan-hydrochlorothiazide) given the patient is started on IV diuresis and his pressure us on the low end of normal. - monitor Plan patient was seen by the planning official patient clinical symptoms are improving and he is well diuresed, continued IV Lasix one more day and stop in the morning and start patient on oral lasix, planning official reduce amiodarone 100mg qd, however patient has tachycardia with exertion today it was increase back to 200mg, and diltiazem CD 120mg daily will continue apixaban 5mg BID, as well Crestor 10mg, will monitor clinical symptoms, will dc valsartan and HCTZ due to hypotension, patient old have old injury to left shoulder having pain in his left shoulder, applied Lidocaine patch, will monitor and plan tomorrow for possible discharge. patient was seen by the planning official patient clinical symptoms are improving and he is well diuresed, will continue IV Lasix one more day and stop in the morning, planning official reduce amiodarone 100mg qd, however patient has tachycardia with exertion today it was increase back to 200mg, and diltiazem CD 120mg daily will continue apixaban 5mg BID, as well Crestor 10mg, patient clinical symptoms valsartan and HCTZ are on due to hypotension, today patient old injury to left shoulder having pain in his left shoulder, will apply Lidocaine patche, will monitor and plan tomorrow for possible discharge. patient stats he feels little better and not as short of breath compared to when he came in, however patient lower extremities remain edematous, patient is being diuresed with IV Lasix. patient with history of A. fib for he is not taking his medications, when patient was ambulated his HR jump into 150-160 and tele showed he was in A, fib, will consult planning official for further recommendation. will monitor. patient was seen by the planning official patient clinical symptoms are improving and he is well diuresed, will continue IV Lasix one more day and stop in the morning, planning official continued amiodarone 100mg qd, and diltiazem CD 120mg daily will continue apixabane 5mg BID, as well Crestor 10mg, patient clinical symptoms have improved will monitor and plan tomorrow for possible discharge. Diet: Heart healthy GI Prophylaxis: N/a DVT Prophylaxis: Eliquis IV fluids: None, diuresing Lines/Tubes: Peripheral IV Code Status: DNR Subjective Date/time seen: 03/25/25 12:16 Interval history: Weakness, Shortness of Breath H&P-Narrative: 89 y/o M with PMH of CAD, GERD, kidney stones, CKD stage 3, hypertension, hyperlipidemia, and atrial fibrillation presents here with weakness and shortness of breath. The patient presents here from home on 03/21 for further evaluation of generalized weakness and shortness of breath that has been ongoing for the past 3 weeks. He reports the shortness of breath has been gradually worsening and is exacerbated by exertion. He reports accompanying fatigue, intermittent dizziness, and swelling to his bilateral lower extremities. He reports the swelling to his bilateral lower extremities has been ongoing for some time, mostly noted at the end of the day due to noticing and intend where his sock line would be. He denies chest pain, palpitations, nausea, vomiting, or diuresis. He was initially evaluated by his PCP today for the symptoms, EKG showed atrial fibrillation with prolonged QTC. The patient has a history of atrial fibrillation on Eliquis for which she has previously underwent a cardioversion. He follows with a planning official, Dr. Paris. Initial VS at presentation: 97.4? F, HR 67, R 22, 119/83, and 99% on RA. ED workup showed: No leukocytosis, hemoglobin 12.8 (11.7 on 06/27/2024), INR 1.5, no significant electrolyte derangements, creatinine 1.42 and GFR 47 (1.65 and GFR 40 on 06/27/2024), initial troponin 0.155 (similar to previous in 2021), BNP 77016. CXR showed right basilar infiltrate may be atelectasis or pneumonia, small right pleural effusion, cardiomegaly. Initial EKG showed atrial fibrillation with RVR, rate 107, incomplete right bundle branch block. patient stats he feels little better and not as short of breath compared to when he came in, however patient lower extremities remain edematous, patient is being diuresed with IV Lasix. patient with history of A. fib for he is not taking his medications, when patient was ambulated his HR jump into 150-160 and tele showed he was in A, fib, will consult planning official for further recommendation. will monitor. patient was seen by the planning official patient clinical symptoms are improving and he is well diuresed, continued IV Lasix one more day and stop in the morning and start patient on oral lasix, planning official reduce amiodarone 100mg qd, however patient has tachycardia with exertion today it was increase back to 200mg, and diltiazem CD 120mg daily will continue apixaban 5mg BID, as well Crestor 10mg, will monitor clinical symptoms, will dc valsartan and HCTZ due to hypotension, patient old have old injury to left shoulder having pain in his left shoulder, applied Lidocaine patch, will monitor and plan tomorrow for possible discharge. Review of Systems Review of Systems: All systems reviewed & are unremarkable except as noted in HPI and below Exam Narrative: Patient is comfortable, NAD HEENT: eyes are clear and none icteric LUNGS:CTA HEART: RR S1S2 ABD: BS+, Soft and nontender Lower extremities: no edema SKIN: nonjaundiced Neuro: grossly intact. Objective Data Vital Signs Vital Signs: Vital Signs - 24 hr 03/24/25 12:23 03/24/25 12:23 03/24/25 14:00 Temperature 36.5 C Pulse Rate 90 87 Respiratory Rate 16 Blood Pressure 98/58 L 120/89 Pulse Oximetry 97 Oxygen Delivery 03/24/25 16:02 03/24/25 20:00 03/24/25 20:00 Temperature Pulse Rate 76 77 Respiratory Rate Blood Pressure Pulse Oximetry Oxygen Delivery Room Air 03/24/25 20:44 03/24/25 21:12 03/25/25 00:00 Temperature 36.3 C L Pulse Rate 101 H 71 73 Respiratory Rate 20 Blood Pressure 104/63 Pulse Oximetry 99 Oxygen Delivery 03/25/25 04:00 03/25/25 05:29 03/25/25 08:52 Temperature 36.6 C Pulse Rate 73 68 96 Respiratory Rate 20 Blood Pressure 92/60 L Pulse Oximetry 100 Oxygen Delivery 03/25/25 09:05 03/25/25 09:06 Temperature Pulse Rate 99 Respiratory Rate Blood Pressure 118/78 Pulse Oximetry Oxygen Delivery Intake/Output Intake/Output: Intake & Output 03/22/25 03/23/25 03/24/25 03/25/25 23:59 23:59 23:59 23:59 Intake Total 2140 800 1400 440 Output Total 5250 1950 Balance -3110 -1150 1400 440 Meds/Results Medications: Active Medications Generic Name Dose Route Start Last Admin Trade Name Freq PRN Reason Stop Dose Admin Hydrocodone Bitart/Acetaminophen 1 tab 03/21/25 21:01 Hydrocodone/Acetaminophen (*Crx) 5-325 Mg Tablet PO Q6H PRN Pain Amiodarone HCl 200 mg 03/25/25 08:00 03/25/25 08:52 Amiodarone Hcl 200 Mg Tablet PO 200 mg DAILY@0800 NHAN Administration Apixaban 5 mg 03/21/25 21:10 03/25/25 08:53 Apixaban 5 Mg Tablet PO 5 mg Q12HR NHAN Administration Buspirone HCl 15 mg 03/22/25 09:00 03/25/25 08:52 Buspirone Hcl 5 Mg Tablet PO 15 mg DAILY NHAN Administration Diltiazem HCl 120 mg 03/24/25 09:00 03/25/25 08:53 Diltiazem Hcl Cd 120 Mg Cap.24hr PO 120 mg QAM NHAN Administration Docusate Sodium 100 mg 03/23/25 21:00 03/25/25 08:52 Docusate Sodium 100 Mg Capsule PO 100 mg Q12HR NHAN Administration Furosemide 20 mg 03/25/25 09:00 03/25/25 08:53 Furosemide 20 Mg Tablet PO 20 mg DAILY NHAN Administration Lidocaine 1 patch 03/24/25 12:20 03/25/25 08:53 Lidocaine 5% Patch TRANSDERM Not Given DAILY NHAN Metoprolol Tartrate 12.5 mg 03/24/25 12:10 03/25/25 09:06 Metoprolol Tartrate 12.5 Mg Tablet PO 12.5 mg Q12HR NHAN Administration Nitroglycerin 0.4 mg 03/21/25 21:13 Nitroglycerin Sl 0.4 Mg Tablet SUBLINGUAL Q5MIN PRN Chest Pain Perflutren Lipid Microsphere 0 ml 03/22/25 15:01 Perflutren Lipid Microspheres 1.5 Ml Vial Diluted To 10 Ml Total Volume IV PUSH 03/25/25 15:01 ONCE PRN adequate visualization Protocol Rosuvastatin Calcium 10 mg 03/21/25 21:15 03/24/25 20:54 Rosuvastatin 10 Mg Tablet PO 10 mg QHS NHAN Administration Radiology Results: ITS Impressions Chest X-Ray 03/21/25 14:31 Impression: 1: Right basilar infiltrate may represent atelectasis or pneumonia. 2: Small right pleural effusion. 3: Cardiomegaly. Labs Labs: Laboratory Results - last 24 hr 03/24/25 12:46 Magnesium 1.8 Quality VTE Prophylaxis VTE prophylaxis: pharmacologic ordered
--- NOTE | 2025-03-25 14:44 | P.PNCA_ITS ---
Progress Note: A&P Assessment and Plan (1) A-fib: Qualifiers: Atrial fibrillation type: persistent (not longstanding) Qualified Code(s): I48.19 - Other persistent atrial fibrillation Code(s): I48.91 - Unspecified atrial fibrillation Status: Acute Assessment and Plan: I am actually going to stop his diltiazem. Keep him on amiodarone for now for rate control atrial fibrillation and utilize metoprolol for further rate control if need be. He has a history of a cardiomyopathy any way it makes more sense to push metoprolol rather than the diltiazem. 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 Long-term, will defer to Dr. Paris since he was on this as an outpatient. Consider ablation versus transition to a different agent (3) Acute exacerbation of CHF (congestive heart failure): Qualifiers: Heart failure type: combined systolic and diastolic Qualified Code(s): I50.43 - Acute on chronic combined systolic (congestive) and diastolic (congestive) heart failure Code(s): I50.9 - Heart failure, unspecified Status: Acute Assessment and Plan: On oral Lasix and this should be continued. Continue metoprolol, valsartan (4) CATRINA (acute kidney injury): Code(s): N17.9 - Acute kidney failure, unspecified Status: Acute (5) Essential hypertension: Code(s): I10 - Essential (primary) hypertension Status: Acute Assessment and Plan: Controlled if anything low (6) Chronic kidney disease, stage 3: Qualifiers: Chronic kidney disease stage 3 subtype: unspecified whether 3a or 3b Qualified Code(s): N18.30 - Chronic kidney disease, stage 3 unspecified Code(s): N18.3 - Chronic kidney disease, stage 3 (moderate) Status: Acute Subjective Date/time seen: 03/25/25 14:44 Interval history: Patient is a 89-year-old male admitted with complaints of shortness of breath. Patient was seen in the primary physician office and subsequent EKG showed atrial fibrillation and was sent to the emergency room. Patient has history of atrial fibrillation treated with rate control and oral anticoagulation with Eliquis. Date of Service 03/24/2025: Patient is sitting up in bed and overall feeling well. No c/o any chest pain or shortness of breath. No dizziness or palpitations. Review of Systems Review of Systems: All systems reviewed & are unremarkable except as noted in HPI and below Constitutional: Constitutional: Denies body ache(s) Eyes: Eyes: Denies blurry vision Cardiovascular: Cardiovascular: Denies chest pain Respiratory: Respiratory: Reports dyspnea on exertion Exam Narrative: Appears stated age Const: General: comfortable and no acute distress HENMT: Face/Nose/Sinus: Normal nares present Mouth: Yes moist mucous membranes Eyes: General: appearance normal, both eyes and all related structures Sclera: sclerae normal Neck: Neck: supple and no JVD Resp: Effort & Inspection: normal respiratory effort Auscultation: clear to auscultation bilaterally Cardio: Rate: regular rate Rhythm: abnormal rhythm irregularly irregular GI: Inspection: non-distended GI Palp: Yes Soft to palpation Skin: General skin exam: normal color Neuro: Speech: normal speech Extrem: General: normal to inspection Psych: Mental Status: mental status grossly normal Objective Data Vital Signs Vital Signs: Vital Signs - 24 hr 03/24/25 16:02 03/24/25 20:00 03/24/25 20:00 Temperature Pulse Rate 76 77 Respiratory Rate Blood Pressure Pulse Oximetry Oxygen Delivery Room Air 03/24/25 20:44 03/24/25 21:12 03/25/25 00:00 Temperature 36.3 C L Pulse Rate 101 H 71 73 Respiratory Rate 20 Blood Pressure 104/63 Pulse Oximetry 99 Oxygen Delivery 03/25/25 04:00 03/25/25 05:29 03/25/25 08:52 Temperature 36.6 C Pulse Rate 73 68 96 Respiratory Rate 20 Blood Pressure 92/60 L Pulse Oximetry 100 Oxygen Delivery 03/25/25 09:05 03/25/25 09:06 Temperature Pulse Rate 99 Respiratory Rate Blood Pressure 118/78 Pulse Oximetry Oxygen Delivery Intake/Output Intake/Output: Intake & Output 03/22/25 03/23/25 03/24/25 03/25/25 23:59 23:59 23:59 23:59 Intake Total 2140 800 1400 440 Output Total 5250 1950 Balance -3110 -1150 1400 440 Meds/Results Medications: Active Medications Generic Name Dose Route Start Last Admin Trade Name Freq PRN Reason Stop Dose Admin Hydrocodone Bitart/Acetaminophen 1 tab 03/21/25 21:01 Hydrocodone/Acetaminophen (*Crx) 5-325 Mg Tablet PO Q6H PRN Pain Amiodarone HCl 200 mg 03/25/25 08:00 03/25/25 08:52 Amiodarone Hcl 200 Mg Tablet PO 200 mg DAILY@0800 NHAN Administration Apixaban 5 mg 03/21/25 21:10 03/25/25 08:53 Apixaban 5 Mg Tablet PO 5 mg Q12HR NHAN Administration Buspirone HCl 15 mg 03/22/25 09:00 03/25/25 08:52 Buspirone Hcl 5 Mg Tablet PO 15 mg DAILY NHAN Administration Diltiazem HCl 120 mg 03/24/25 09:00 03/25/25 08:53 Diltiazem Hcl Cd 120 Mg Cap.24hr PO 120 mg QAM NHAN Administration Docusate Sodium 100 mg 03/23/25 21:00 03/25/25 08:52 Docusate Sodium 100 Mg Capsule PO 100 mg Q12HR NHAN Administration Furosemide 20 mg 03/25/25 09:00 03/25/25 08:53 Furosemide 20 Mg Tablet PO 20 mg DAILY [facility] Administration Lidocaine 1 patch 03/24/25 12:20 03/25/25 08:53 Lidocaine 5% Patch TRANSDERM Not Given DAILY [facility] Metoprolol Tartrate 12.5 mg 03/24/25 12:10 03/25/25 09:06 Metoprolol Tartrate 12.5 Mg Tablet PO 12.5 mg Q12HR NHAN Administration Nitroglycerin 0.4 mg 03/21/25 21:13 Nitroglycerin Sl 0.4 Mg Tablet SUBLINGUAL Q5MIN PRN Chest Pain Perflutren Lipid Microsphere 0 ml 03/22/25 15:01 Perflutren Lipid Microspheres 1.5 Ml Vial Diluted To 10 Ml Total Volume IV PUSH 03/25/25 15:01 ONCE PRN adequate visualization Protocol Rosuvastatin Calcium 10 mg 03/21/25 21:15 03/24/25 20:54 Rosuvastatin 10 Mg Tablet PO 10 mg QHS NHAN Administration Radiology Results: ITS Impressions Chest X-Ray 03/21/25 14:31 Impression: 1: Right basilar infiltrate may represent atelectasis or pneumonia. 2: Small right pleural effusion. 3: Cardiomegaly.
[2025-03-25] MEDS: ROSUVASTATIN 10 MG TABLET PO (20:25)
[2025-03-26] VITALS (11 sets, daily range): BP systolic 92–101; BP diastolic 46–65; PULSE 65–104; RESP 18; TEMP 36.6; O2SAT 96–100
[2025-03-26 07:54] LABS: Hematocrit 37.9 % (42.0-52.0); Hemoglobin 12.4 g/dL (14.0-18.0); Mean Corpuscular HGB Conc 32.7 g/dl (32-36); Mean Corpuscular Hemoglobin 34.4 pg (26-34); Mean Corpuscular Volume 105.3 fl (80-100); Platelet Count Result 122 k/mm3 (150-375); Red Blood Count 3.60 M/mm3 (4.6-6.20); White Blood Count 5.2 K/mm3 (4.5-10.0)
[2025-03-26 08:18] LABS: Anion Gap 5 mmol/L (4-12); Blood Urea Nitrogen 39 mg/dL (9-20); Calcium 9.1 mg/dL (8.4-10.2); Carbon Dioxide 29 mmol/L (22-30); Chloride 103 mmol/L (98-107); Estimated CRCL calculation 31 ml/min; Estimated Glomerular Filt Rate 45; Glucose 104 mg/dL (65-110); Magnesium 2.2 mg/dL (1.6-2.3); Potassium 4.3 mmol/L (3.4-5.0); Sodium 137 mmol/L (137-145)
--- NOTE | 2025-03-26 09:40 | PM.PNCARD ---
Progress Note: A&P Assessment and Plan (1) A-fib: Qualifiers: Atrial fibrillation type: persistent (not longstanding) Qualified Code(s): I48.19 - Other persistent atrial fibrillation Code(s): I48.91 - Unspecified atrial fibrillation Status: Acute Assessment and Plan: Heart rate is controlled with the metoprolol and amiodarone combination. Blood pressure though is a bit low and will reduce his metoprolol down to 12.5 mg p.o. b.i.d.. 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 Long-term, will defer to Dr. Paris since he was on this as an outpatient. Consider ablation versus transition to a different agent (3) Acute exacerbation of CHF (congestive heart failure): Qualifiers: Heart failure type: combined systolic and diastolic Qualified Code(s): I50.43 - Acute on chronic combined systolic (congestive) and diastolic (congestive) heart failure Code(s): I50.9 - Heart failure, unspecified Status: Acute Assessment and Plan: On oral Lasix and this should be continued. Continue metoprolol, valsartan (4) CATRINA (acute kidney injury): Code(s): N17.9 - Acute kidney failure, unspecified Status: Acute Assessment and Plan: Stable (5) Essential hypertension: Code(s): I10 - Essential (primary) hypertension Status: Acute Assessment and Plan: Controlled if anything low (6) Chronic kidney disease, stage 3: Qualifiers: Chronic kidney disease stage 3 subtype: unspecified whether 3a or 3b Qualified Code(s): N18.30 - Chronic kidney disease, stage 3 unspecified Code(s): N18.3 - Chronic kidney disease, stage 3 (moderate) Status: Acute Subjective Date/time seen: 03/26/25 09:40 Interval history: Patient is a 89-year-old male admitted with complaints of shortness of breath. Patient was seen in the primary physician office and subsequent EKG showed atrial fibrillation and was sent to the emergency room. Patient has history of atrial fibrillation treated with rate control and oral anticoagulation with Eliquis. Date of Service 03/26/2025: No palpitations. Feels little tired but otherwise without complaint Review of Systems Review of Systems: Twelve point review of system was completed. Pertinent positive and negative findings per HPI. All systems reviewed & are unremarkable except as noted in HPI and below Constitutional: Constitutional: Denies body ache(s) Eyes: Eyes: Denies blurry vision Cardiovascular: Cardiovascular: Denies chest pain and Reports dyspnea on exertion Respiratory: Respiratory: Reports dyspnea on exertion Exam Narrative: Appears stated age Const: General: comfortable and no acute distress HENMT: Face/Nose/Sinus: Normal nares present Mouth: Yes moist mucous membranes Eyes: General: appearance normal, both eyes and all related structures Sclera: sclerae normal Neck: Neck: supple and no JVD Resp: Effort & Inspection: normal respiratory effort Auscultation: clear to auscultation bilaterally Cardio: Rate: regular rate Rhythm: abnormal rhythm irregularly irregular GI: Inspection: non-distended Skin: General skin exam: normal color Neuro: Speech: normal speech Extrem: General: normal to inspection Psych: Mental Status: mental status grossly normal Objective Data Vital Signs Vital Signs: Vital Signs - 24 hr 03/25/25 14:00 03/25/25 16:00 03/25/25 20:00 Temperature 36.9 C Pulse Rate 66 71 74 Respiratory Rate 18 Blood Pressure 92/55 L Pulse Oximetry 98 Oxygen Delivery 03/25/25 20:00 03/25/25 22:00 03/26/25 00:00 Temperature 36.6 C Pulse Rate 67 65 Respiratory Rate 18 Blood Pressure 91/56 L Pulse Oximetry 99 Oxygen Delivery Room Air 03/26/25 04:00 03/26/25 06:00 Temperature 36.6 C Pulse Rate 67 75 Respiratory Rate 18 Blood Pressure 92/62 L Pulse Oximetry 96 Oxygen Delivery Intake/Output Intake/Output: Intake & Output 03/23/25 03/24/25 03/25/25 03/26/25 23:59 23:59 23:59 23:59 Intake Total 800 1400 800 240 Output Total 1950 Balance -1150 1400 800 240 Meds/Results Medications: Active Medications Generic Name Dose Route Start Last Admin Trade Name Freq PRN Reason Stop Dose Admin Hydrocodone Bitart/Acetaminophen 1 tab 03/21/25 21:01 Hydrocodone/Acetaminophen (*Crx) 5-325 Mg Tablet PO Q6H PRN Pain Amiodarone HCl 200 mg 03/25/25 08:00 03/25/25 08:52 Amiodarone Hcl 200 Mg Tablet PO 200 mg DAILY@0800 [facility] Administration Apixaban 5 mg 03/21/25 21:10 03/25/25 20:25 Apixaban 5 Mg Tablet PO 5 mg Q12HR NHAN Administration Buspirone HCl 15 mg 03/22/25 09:00 03/25/25 08:52 Buspirone Hcl 5 Mg Tablet PO 15 mg DAILY NHAN Administration Docusate Sodium 100 mg 03/23/25 21:00 03/25/25 20:26 Docusate Sodium 100 Mg Capsule PO 100 mg Q12HR [facility] Administration Furosemide 20 mg 03/25/25 09:00 03/25/25 08:53 Furosemide 20 Mg Tablet PO 20 mg DAILY [facility] Administration Lidocaine 1 patch 03/24/25 12:20 03/25/25 08:53 Lidocaine 5% Patch TRANSDERM Not Given DAILY [facility] Metoprolol Tartrate 25 mg 03/25/25 21:00 03/25/25 20:26 Metoprolol Tartrate 25 Mg Tablet PO Not Given Q12HR [facility] Nitroglycerin 0.4 mg 03/21/25 21:13 Nitroglycerin Sl 0.4 Mg Tablet SUBLINGUAL Q5MIN PRN Chest Pain Rosuvastatin Calcium 10 mg 03/21/25 21:15 03/25/25 20:25 Rosuvastatin 10 Mg Tablet PO 10 mg QHS NHAN Administration Radiology Results: ITS Impressions Chest X-Ray 03/21/25 14:31 Impression: 1: Right basilar infiltrate may represent atelectasis or pneumonia. 2: Small right pleural effusion. 3: Cardiomegaly. Labs Labs: Laboratory Results - last 24 hr 03/26/25 07:49 WBC 5.2 RBC 3.60 L Hgb 12.4 L Hct 37.9 L MCV 105.3 H MCH 34.4 H MCHC 32.7 RDW 14.6 H Plt Count 122 L MPV 9.8 Sodium 137 Potassium 4.3 Chloride 103 Carbon Dioxide 29 Anion Gap 5 BUN 39 H Creatinine 1.48 H Estim Creat Clear Calc 31 Estimated GFR 45 L Glucose 104 Calcium 9.1 Magnesium 2.2
[2025-03-26] MEDS: AMIODARONE HCL 200 MG TABLET PO (10:14)
[2025-03-26] MEDS: APIXABAN 5 MG TABLET PO ×2 (10:14→20:44)
[2025-03-26] MEDS: DOCUSATE SODIUM 100 MG CAPSULE PO ×2 (10:14→20:44)
[2025-03-26] MEDS: FUROSEMIDE 20 MG TABLET PO (10:14)
--- NOTE | 2025-03-26 14:28 | PM.IMPN ---
Progress Note: A&P Assessment and Plan (1) Acute exacerbation of CHF (congestive heart failure): Qualifiers: Heart failure type: combined systolic and diastolic Qualified Code(s): I50.43 - Acute on chronic combined systolic (congestive) and diastolic (congestive) heart failure Code(s): I50.9 - Heart failure, unspecified Status: Acute Assessment and Plan: Concern for acute on chronic diastolic heart failure. Patient reporting worsening shortness of breath for the past 3 weeks that worsens with exertion. Reviewed chart, previous echo reviewed from 2021 which showed an EF of 58-55% with moderate concentric hypertrophy of the LV, moderate AV regurgitation, mild MV regurgitation. Recent MAGDALENA performed on07/22/24 which showed a mildly decreased LV systolic function with an estimated EF of 45% and grade 1 diastolic dysfunction with severe left atrial enlargement. - cardiology consulted, see note and recommendation - start IV diuresis NV Lasix 40 mg b.i.d. >> BP initially soft at 103/65 which may be limiting to diuresis. Will hold home antihypertensives including valsartan and hydrochlorothiazide. - monitor renal function - monitor electrolytes, correct as needed - monitor I&Os daily weights (2) Elevated troponin: Code(s): R77.8 - Other specified abnormalities of plasma proteins Status: Acute Assessment and Plan: Mildly elevated troponin that has been thus far flat (0.155 -> 0.146 -> 0.146). Previously elevated in 2021 between 0.141 and 0.162. May be chronic for patient due to history of CKD. Wheel Alignment Technician consulted, feels elevated troponin more likely chronic verses ACS. No current chest pain. Monitor. (3) A-fib: Qualifiers: Atrial fibrillation type: persistent (not longstanding) Qualified Code(s): I48.19 - Other persistent atrial fibrillation Code(s): I48.91 - Unspecified atrial fibrillation Status: Acute Assessment and Plan: Patient has history of chronic atrial fibrillation. Initial EKG showed AFib RVR, repeat EKG showed AFib with controlled ventricular response. Has history of cardioversion in August of 2024. - continue Eliquis - manager technical support reaching out to patient's primary manager technical support for clarification on patient's amiodarone, patient has history of pulmonary fibrosis possibly secondary to amiodarone. Also recommended TSH if not done recently, TSH 3.3 on 06/27/2024. Will update. - telemetry monitoring (4) Chronic kidney disease, stage 3: Qualifiers: Chronic kidney disease stage 3 subtype: unspecified whether 3a or 3b Qualified Code(s): N18.30 - Chronic kidney disease, stage 3 unspecified Code(s): N18.3 - Chronic kidney disease, stage 3 (moderate) Status: Acute Assessment and Plan: Patient has history pre of CKD, currently at baseline. Renal function upon admission: Creatinine 1.42, BUN 35, GFR 47. - trend renal function, started on IV diuresis (5) Essential hypertension: Code(s): I10 - Essential (primary) hypertension Status: Acute Assessment and Plan: - chronic, currently 110/73. - hold home medication (valsartan-hydrochlorothiazide) given the patient is started on IV diuresis and his pressure us on the low end of normal. - monitor Plan patient was seen by the manager technical support patient clinical symptoms are improving and he is well diuresed, continued IV Lasix one more day and stop in the morning and start patient on oral lasix, manager technical support reduce amiodarone 100mg qd, however patient has tachycardia with exertion today it was increase back to 200mg, and diltiazem CD 120mg daily will continue apixaban 5mg BID, as well Crestor 10mg, will monitor clinical symptoms, will dc valsartan and HCTZ due to hypotension, patient old have old injury to left shoulder having pain in his left shoulder, applied Lidocaine patch, patient still has exertional palpitation, will monitor and plan tomorrow for possible discharge. patient stats he feels little better and not as short of breath compared to when he came in, however patient lower extremities remain edematous, patient is being diuresed with IV Lasix. patient with history of A. fib for he is not taking his medications, when patient was ambulated his HR jump into 150-160 and tele showed he was in A, fib, will consult manager technical support for further recommendation. will monitor. patient was seen by the manager technical support patient clinical symptoms are improving and he is well diuresed, will continue IV Lasix one more day and stop in the morning, manager technical support continued amiodarone 100mg qd, and diltiazem CD 120mg daily will continue apixabane 5mg BID, as well Crestor 10mg, patient clinical symptoms have improved will monitor and plan tomorrow for possible discharge. Diet: Heart healthy GI Prophylaxis: N/a DVT Prophylaxis: Eliquis IV fluids: None, diuresing Lines/Tubes: Peripheral IV Code Status: DNR Subjective Date/time seen: 03/26/25 14:28 Interval history: Weakness, Shortness of Breath H&P-Narrative: 89 y/o M with PMH of CAD, GERD, kidney stones, CKD stage 3, hypertension, hyperlipidemia, and atrial fibrillation presents here with weakness and shortness of breath. The patient presents here from home on 03/21 for further evaluation of generalized weakness and shortness of breath that has been ongoing for the past 3 weeks. He reports the shortness of breath has been gradually worsening and is exacerbated by exertion. He reports accompanying fatigue, intermittent dizziness, and swelling to his bilateral lower extremities. He reports the swelling to his bilateral lower extremities has been ongoing for some time, mostly noted at the end of the day due to noticing and intend where his sock line would be. He denies chest pain, palpitations, nausea, vomiting, or diuresis. He was initially evaluated by his PCP today for the symptoms, EKG showed atrial fibrillation with prolonged QTC. The patient has a history of atrial fibrillation on Eliquis for which she has previously underwent a cardioversion. He follows with a manager technical support, Dr. Paris. Initial VS at presentation: 97.4? F, HR 67, R 22, 119/83, and 99% on RA. ED workup showed: No leukocytosis, hemoglobin 12.8 (11.7 on 06/27/2024), INR 1.5, no significant electrolyte derangements, creatinine 1.42 and GFR 47 (1.65 and GFR 40 on 06/27/2024), initial troponin 0.155 (similar to previous in 2021), BNP 63872. CXR showed right basilar infiltrate may be atelectasis or pneumonia, small right pleural effusion, cardiomegaly. Initial EKG showed atrial fibrillation with RVR, rate 107, incomplete right bundle branch block. patient stats he feels little better and not as short of breath compared to when he came in, however patient lower extremities remain edematous, patient is being diuresed with IV Lasix. patient with history of A. fib for he is not taking his medications, when patient was ambulated his HR jump into 150-160 and tele showed he was in A, fib, will consult manager technical support for further recommendation. will monitor. patient was seen by the manager technical support patient clinical symptoms are improving and he is well diuresed, continued IV Lasix one more day and stop in the morning and start patient on oral lasix, manager technical support reduce amiodarone 100mg qd, however patient has tachycardia with exertion today it was increase back to 200mg, and diltiazem CD 120mg daily will continue apixaban 5mg BID, as well Crestor 10mg, will monitor clinical symptoms, will dc valsartan and HCTZ due to hypotension, patient old have old injury to left shoulder having pain in his left shoulder, applied Lidocaine patch, patient still has exertional palpitation, will monitor and plan tomorrow for possible discharge. Review of Systems Review of Systems: All systems reviewed & are unremarkable except as noted in HPI and below Exam Narrative: Patient is comfortable, NAD HEENT: eyes are clear and none icteric LUNGS:CTA HEART: RR S1S2 ABD: BS+, Soft and nontender Lower extremities: no edema SKIN: nonjaundiced Neuro: grossly intact. Objective Data Vital Signs Vital Signs: Vital Signs - 24 hr 03/25/25 16:00 03/25/25 20:00 03/25/25 20:00 Temperature Pulse Rate 71 74 Respiratory Rate Blood Pressure Pulse Oximetry Oxygen Delivery Room Air 03/25/25 22:00 03/26/25 00:00 03/26/25 04:00 Temperature 36.6 C Pulse Rate 67 65 67 Respiratory Rate 18 Blood Pressure 91/56 L Pulse Oximetry 99 Oxygen Delivery 03/26/25 06:00 03/26/25 08:00 03/26/25 08:00 Temperature 36.6 C Pulse Rate 75 67 Respiratory Rate 18 Blood Pressure 92/62 L Pulse Oximetry 96 Oxygen Delivery Room Air 03/26/25 10:14 03/26/25 14:00 Temperature 36.6 C Pulse Rate 76 78 Respiratory Rate 18 Blood Pressure 99/46 L Pulse Oximetry 99 Oxygen Delivery Intake/Output Intake/Output: Intake & Output 03/23/25 03/24/25 03/25/25 03/26/25 23:59 23:59 23:59 23:59 Intake Total 800 1450 800 480 Output Total 1950 Balance -1150 1450 800 480 Meds/Results Medications: Active Medications Generic Name Dose Route Start Last Admin Trade Name Freq PRN Reason Stop Dose Admin Hydrocodone Bitart/Acetaminophen 1 tab 03/21/25 21:01 Hydrocodone/Acetaminophen (*Crx) 5-325 Mg Tablet PO Q6H PRN Pain Amiodarone HCl 200 mg 03/25/25 08:00 03/26/25 10:14 Amiodarone Hcl 200 Mg Tablet PO 200 mg DAILY@0800 NHAN Administration Apixaban 5 mg 03/21/25 21:10 03/26/25 10:14 Apixaban 5 Mg Tablet PO 5 mg Q12HR NHAN Administration Buspirone HCl 15 mg 03/22/25 09:00 03/26/25 10:14 Buspirone Hcl 5 Mg Tablet PO 15 mg DAILY [facility] Administration Docusate Sodium 100 mg 03/23/25 21:00 03/26/25 10:14 Docusate Sodium 100 Mg Capsule PO 100 mg Q12HR [facility] Administration Furosemide 20 mg 03/25/25 09:00 03/26/25 10:14 Furosemide 20 Mg Tablet PO 20 mg DAILY [facility] Administration Lidocaine 1 patch 03/24/25 12:20 03/26/25 10:15 Lidocaine 5% Patch TRANSDERM Not Given DAILY [facility] Metoprolol Tartrate 12.5 mg 03/26/25 21:00 Metoprolol Tartrate 12.5 Mg Tablet PO Q12HR [facility] Nitroglycerin 0.4 mg 03/21/25 21:13 Nitroglycerin Sl 0.4 Mg Tablet SUBLINGUAL Q5MIN PRN Chest Pain Rosuvastatin Calcium 10 mg 03/21/25 21:15 03/25/25 20:25 Rosuvastatin 10 Mg Tablet PO 10 mg QHS NHAN Administration Radiology Results: ITS Impressions Chest X-Ray 03/21/25 14:31 Impression: 1: Right basilar infiltrate may represent atelectasis or pneumonia. 2: Small right pleural effusion. 3: Cardiomegaly. Labs Labs: Laboratory Results - last 24 hr 03/26/25 07:49 WBC 5.2 RBC 3.60 L Hgb 12.4 L Hct 37.9 L MCV 105.3 H MCH 34.4 H MCHC 32.7 RDW 14.6 H Plt Count 122 L MPV 9.8 Sodium 137 Potassium 4.3 Chloride 103 Carbon Dioxide 29 Anion Gap 5 BUN 39 H Creatinine 1.48 H Estim Creat Clear Calc 31 Estimated GFR 45 L Glucose 104 Calcium 9.1 Magnesium 2.2 Quality VTE Prophylaxis VTE prophylaxis: pharmacologic ordered
[2025-03-26] MEDS: METOPROLOL TARTRATE 12.5 MG TABLET PO (20:43)
[2025-03-26] MEDS: ROSUVASTATIN 10 MG TABLET PO (20:44)
[2025-03-27] VITALS (8 sets, daily range): BP systolic 98–116; BP diastolic 55–72; PULSE 70–108; RESP 18–20; TEMP 36.2–36.6; O2SAT 91–100
[2025-03-27 05:22] LABS: Hematocrit 37.3 % (42.0-52.0); Hemoglobin 12.3 g/dL (14.0-18.0); Immature Platelet Fraction Pct 2.6 % (0.9-11.2); Mean Corpuscular HGB Conc 33.0 g/dl (32-36); Mean Corpuscular Hemoglobin 34.6 pg (26-34); Mean Corpuscular Volume 104.8 fl (80-100); Platelet Count Result 123 k/mm3 (150-375); Red Blood Count 3.56 M/mm3 (4.6-6.20); White Blood Count 5.3 K/mm3 (4.5-10.0)
[2025-03-27 05:43] LABS: Anion Gap 4 mmol/L (4-12); Blood Urea Nitrogen 37 mg/dL (9-20); Calcium 9.2 mg/dL (8.4-10.2); Carbon Dioxide 28 mmol/L (22-30); Chloride 103 mmol/L (98-107); Estimated CRCL calculation 31 ml/min; Estimated Glomerular Filt Rate 44; Glucose 100 mg/dL (65-110); Magnesium 2.1 mg/dL (1.6-2.3); Potassium 3.9 mmol/L (3.4-5.0); Sodium 135 mmol/L (137-145)
[2025-03-27] MEDS: APIXABAN 5 MG TABLET PO (10:04)
[2025-03-27] MEDS: FUROSEMIDE 20 MG TABLET PO (10:04)
[2025-03-27] MEDS: AMIODARONE HCL 200 MG TABLET PO (10:04)
[2025-03-27] MEDS: DOCUSATE SODIUM 100 MG CAPSULE PO (10:04)
[2025-03-27] MEDS: METOPROLOL TARTRATE 12.5 MG TABLET PO (10:04)
--- NOTE | 2025-03-27 14:53 | P.DS_ITS ---
DS: Admitting Diagnosis Discharge Date 03/27/25 Admitting Diagnosis Weakness, Shortness of Breath DS: Discharge Diagnosis Discharge Diagnosis (1) Acute exacerbation of CHF (congestive heart failure): Qualifiers: Heart failure type: combined systolic and diastolic Qualified Code(s): I50.43 - Acute on chronic combined systolic (congestive) and diastolic (congestive) heart failure Code(s): I50.9 - Heart failure, unspecified Status: Acute Assessment and Plan: Concern for acute on chronic diastolic heart failure. Patient reporting worsening shortness of breath for the past 3 weeks that worsens with exertion. Reviewed chart, previous echo reviewed from 2021 which showed an EF of 58-55% with moderate concentric hypertrophy of the LV, moderate AV regurgitation, mild MV regurgitation. Recent MAGDALENA performed on07/22/24 which showed a mildly decreased LV systolic function with an estimated EF of 45% and grade 1 diastolic dysfunction with severe left atrial enlargement. - cardiology consulted, see note and recommendation - start IV diuresis [place] Lasix 40 mg b.i.d. >> BP initially soft at 103/65 which may be limiting to diuresis. Will hold home antihypertensives including valsartan and hydrochlorothiazide. - monitor renal function - monitor electrolytes, correct as needed - monitor I&Os daily weights (2) Elevated troponin: Code(s): R77.8 - Other specified abnormalities of plasma proteins Status: Acute Assessment and Plan: Mildly elevated troponin that has been thus far flat (0.155 -> 0.146 -> 0.146). Previously elevated in 2021 between 0.141 and 0.162. May be chronic for patient due to history of CKD. Agency Development Manager consulted, feels elevated troponin more likely chronic verses ACS. No current chest pain. Monitor. (3) A-fib: Qualifiers: Atrial fibrillation type: persistent (not longstanding) Qualified Code(s): I48.19 - Other persistent atrial fibrillation Code(s): I48.91 - Unspecified atrial fibrillation Status: Acute Assessment and Plan: Patient has history of chronic atrial fibrillation. Initial EKG showed AFib RVR, repeat EKG showed AFib with controlled ventricular response. Has history of cardioversion in August of 2024. - continue Eliquis - lactation specialist reaching out to patient's primary lactation specialist for clarification on patient's amiodarone, patient has history of pulmonary fibrosis possibly secondary to amiodarone. Also recommended TSH if not done recently, TSH 3.3 on 06/27/2024. Will update. - telemetry monitoring (4) Chronic kidney disease, stage 3: Qualifiers: Chronic kidney disease stage 3 subtype: unspecified whether 3a or 3b Qualified Code(s): N18.30 - Chronic kidney disease, stage 3 unspecified Code(s): N18.3 - Chronic kidney disease, stage 3 (moderate) Status: Acute Assessment and Plan: Patient has history pre of CKD, currently at baseline. Renal function upon admission: Creatinine 1.42, BUN 35, GFR 47. - trend renal function, started on IV diuresis (5) Essential hypertension: Code(s): I10 - Essential (primary) hypertension Status: Acute Assessment and Plan: - chronic, currently 110/73. - hold home medication (valsartan-hydrochlorothiazide) given the patient is started on IV diuresis and his pressure us on the low end of normal. - monitor Plan patient was seen by the lactation specialist patient clinical symptoms are improving and he is well diuresed, continued IV Lasix one more day and stop in the morning and start patient on oral lasix, lactation specialist reduce amiodarone 100mg qd, however patient has tachycardia with exertion today it was increase back to 200mg, and diltiazem CD 120mg daily will continue apixaban 5mg BID, as well Crestor 10mg, will monitor clinical symptoms, will dc valsartan and HCTZ due to hypotension, patient old have old injury to left shoulder having pain in his left shoulder, applied Lidocaine patch, patient still has exertional palpitation, will monitor and plan tomorrow for possible discharge. patient stats he feels little better and not as short of breath compared to when he came in, however patient lower extremities remain edematous, patient is being diuresed with IV Lasix. patient with history of A. fib for he is not taking his medications, when patient was ambulated his HR jump into 150-160 and tele showed he was in A, fib, will consult lactation specialist for further recommendation. will monitor. patient was seen by the lactation specialist patient clinical symptoms are improving and he is well diuresed, will continue IV Lasix one more day and stop in the morning, lactation specialist continued amiodarone 100mg qd, and diltiazem CD 120mg daily will continue apixabane 5mg BID, as well Crestor 10mg, patient clinical symptoms have improved will monitor and plan tomorrow for possible discharge. Diet: Heart healthy GI Prophylaxis: N/a DVT Prophylaxis: Eliquis IV fluids: None, diuresing Lines/Tubes: Peripheral IV Code Status: DNR DS: Summary Hospital Course Hospital Course: patient was seen by the lactation specialist patient clinical symptoms are improving and he is well diuresed, continued IV Lasix one more day and stop in the morning and start patient on oral lasix, lactation specialist reduce amiodarone 100mg qd, however patient has tachycardia with exertion today it was increase back to 200mg, and diltiazem CD 120mg daily will continue apixaban 5mg BID, as well Crestor 10mg, will monitor clinical symptoms, will dc valsartan and HCTZ due to hypotension, patient old have old injury to left shoulder having pain in his left shoulder, applied Lidocaine patch, patient still has exertional palpitation, will monitor and plan tomorrow for possible discharge. patient stats he feels little better and not as short of breath compared to when he came in, however patient lower extremities remain edematous, patient is being diuresed with IV Lasix. patient with history of A. fib for he is not taking his medications, when patient was ambulated his HR jump into 150-160 and tele showed he was in A, fib, will consult lactation specialist for further recommendation. will monitor. patient was seen by the lactation specialist patient clinical symptoms are improving and he is well diuresed, will continue IV Lasix one more day and stop in the morning, lactation specialist continued amiodarone 100mg qd, and diltiazem CD 120mg daily will continue apixabane 5mg BID, as well Crestor 10mg, patient clinical symptoms have improved will monitor and plan tomorrow for possible discharge. Today patient is clinically stable, has no new complaints, he able to ambulate without any difficultly, will discharge patient today. Time Spent with Patient Time attestation: Total time spent providing and/or coordinating discharge services: Exam Narrative: Patient is comfortable, NAD HEENT: eyes are clear and none icteric LUNGS:CTA HEART: RR S1S2 ABD: BS+, Soft and nontender Lower extremities: no edema SKIN: nonjaundiced Neuro: grossly intact. DS: Data Data Completed and Pending Labs on day of discharge: Labs from last 24 hours 03/27/25 04:47 WBC 5.3 RBC 3.56 L Hgb 12.3 L Hct 37.3 L MCV 104.8 H MCH 34.6 H MCHC 33.0 RDW 14.2 Plt Count 123 L MPV 10.8 H % Immature Plt Fraction 2.6 Sodium 135 L Potassium 3.9 Chloride 103 Carbon Dioxide 28 Anion Gap 4 BUN 37 H Creatinine 1.50 H Estim Creat Clear Calc 31 Estimated GFR 44 L Glucose 100 Calcium 9.2 Magnesium 2.1 Discharge Plan Discharge Attending physician on discharge: Johnathan Isaac Oca Consulting providers: Kirby aBck; Janette Funes; Katey Samuel; Matt Bhardwaj; Berlin Leal; Felicity Medel; Tony Morris; Moreno Hameed Discharging Clinician: Cha Pompa Patient Disposition: Home Activity: as tolerated Diet: heart healthy Discharge Instructions: Patient to follow up with his lactation specialist and primary care provider as soon as possible, patient is instructed if any symptoms worsen to go to nearest ER Patient Instructions: Antibiotic Form, Apixaban (By mouth), Heart Failure (GEN), Heart Healthy Diet (DC), Heart Healthy Diet (GEN) Patient Language: Marshallese Stand Alone Forms: General Discharge Information Follow-up/Referrals: Malini,Ruth Vargas MD [Primary Care Provider, Unknown] Kirby Back MD [Physician, Cardiology] Discharge Medications: New docusate sodium 100 mg Capsule 100 mg PO Q12HR Qty: 60 0RF lidocaine [Lidoderm] 5 % Adhesive Patch,Medicated 1 patch transdermal DAILY Qty: 15 0RF metoprolol tartrate 25 mg tablet 12.5 mg PO BID Qty: 60 0RF amiodarone [Pacerone] 200 mg Tablet 200 mg PO DAILY@0800 Qty: 30 0RF furosemide [Lasix] 20 mg tablet 20 mg PO DAILY Qty: 30 0RF Continued Eliquis 5 mg tablet 5 mg PO BID nitroglycerin 0.4 mg tablet, sublingual See Rx Instructions .ROUTE .COMPLEX PRN (Reason: Chest Pain) Rx Instructions: 0.4 mg sublingually every 5 minutes up to 3 doses for chest pain buspirone 15 mg tablet 15 mg PO DAILY hydrocodone-acetaminophen 5-325 mg tablet 1 tablet PO QID PRN (Reason: pain) rosuvastatin [Crestor] 20 mg tablet 10 mg PO QPM Discontinued valsartan-hydrochlorothiazide [Diovan HCT] 320-12.5 mg tablet 1 tablet PO DAILY Qty: 90 1RF Date of admission: 03/21/25 15:32 Primary Care Provider: Malini,Ruth Vargas Admitting Provider: Johnathan Isaac Oca Attending physician on admission: Cha Pompa Condition: Stable
== END 2025-03-27 16:10 | disposition home or self-care (01) | DRG 291 ==
LOC: ANHED 16:55 → ANH2MED 18:18
PROVIDERS: Nurse Practitioner Family; Physician Assistant; Student in an Organized Health Care Education/Training Program; Admitting Provider Student in an Organized Health Care Education/Training Program; Emergency Provider Emergency Medicine; PCP Family Medicine; Visit Provider Family Medicine
DX: I13.0 Hypertensive heart and chronic kidney disease with heart failure and stage 1 through stage 4 chronic kidney disease, or unspecified chronic kidney disease (principal); I50.33 Acute on chronic diastolic (congestive) heart failure; N17.9 Acute kidney failure, unspecified; I48.20 Chronic atrial fibrillation, unspecified; J84.9 Interstitial pulmonary disease, unspecified; I48.91 Unspecified atrial fibrillation; N18.30 Chronic kidney disease, stage 3 unspecified; F10.90 Alcohol use, unspecified, uncomplicated; I25.10 Atherosclerotic heart disease of native coronary artery without angina pectoris; E78.2 Mixed hyperlipidemia; K21.9 Gastro-esophageal reflux disease without esophagitis; Z96.653 Presence of artificial knee joint, bilateral; M54.89 Other dorsalgia; N18.32 Chronic kidney disease, stage 3b; F32.A Depression, unspecified; F41.9 Anxiety disorder, unspecified; I35.1 Nonrheumatic aortic (valve) insufficiency; J84.10 Pulmonary fibrosis, unspecified; I34.0 Nonrheumatic mitral (valve) insufficiency; I95.9 Hypotension, unspecified; I45.10 Unspecified right bundle-branch block; M25.512 Pain in left shoulder; Z66 Do not resuscitate; T14.90XS Injury, unspecified, sequela; T46.2X5D Adverse effect of other antidysrhythmic drugs, subsequent encounter; Z87.891 Personal history of nicotine dependence; Z86.16 Personal history of COVID-19; Z79.01 Long term (current) use of anticoagulants; Z79.891 Long term (current) use of opiate analgesic; Z87.442 Personal history of urinary calculi
CPT/HCPCS: 36415; 71046; 80048; 80053; 83735; 83880; 84439; 84443; 84480; 84484; 85025; 85027; 85055; 85610; 85730; 93005; 93306; 99285; A9270; J1938; J3475